=== PATIENT | female | born 1945 | race Caucasian/White ===

== ENCOUNTER → 2017-05-11 | Outpatient (CLI) | payer MEDICARE ==
--- NOTE | 2017-05-12 11:57 | BD ---
EXAMINATION TYPE: MG DEXA axial skeleton. DATE OF EXAM: 05/11/2017 COMPARISON: NONE CLINICAL HISTORY: Height: 5 FT 2 IN Weight: 199 FRAX RISK QUESTIONS: Alcohol (3 or more units per day): NO Family History (Parent hip fracture): NO Glucocorticoids (More than 3mos): NO (Ex: prednisone, prednisolone, methylprednisolone, dexamethasone, and hydrocortisone). History of Fracture in Adulthood: YES Secondary Osteoporosis: 1. Type 1 Diabetes: NO 2. Hyperthyroidism: NO 3. Menopause before 45: NO 4. Malnutrition: NO 5. Chronic liver disease: NO Rheumatoid Arthritis: NO Current Tobacco Use: NO RISK FACTORS HISTORY OF: Active: YES Postmenopausal woman: AGE 55 MEDICATIONS: Thyroid Medications: YES Which medication: LEVOXYL How Lon YEARS Additional Medications: THYROID MEDS, PLAVIX,BLOOD PRESSURE MEDS, Additional History: EXAM MEASUREMENTS: Bone mineral densitometry was performed using the [employer] System. Bone mineral density as measured about the Lumbar spine is: ----- L1-L4(G/cm2): 1.357 T Score Values are as follows: ----- L2: 1.3 ----- L3: 1.4 ----- L4: 2.2 ----- L1-L4: 1.5 Bone mineral density has: Increased 8.8% since study of: 2013 Bone mineral density about the R hip (g/cm2): 0.914 Bone mineral density about the L hip (g/cm2): 0.853 T Score values are as follows: -----R Neck: -0.9 -----L Neck: -1.3 -----R Total: -0.4 -----L Total: -0.5 Bone mineral density has: Decreased -1.4% since study of: 2013 IMPRESSION: Normal (Values between +1 and -1 indicate normal bone mass). Consider repeating this study in 5 year s or sooner if there is some new clinical indication. Bone density has diminished 1.4% within the bilateral hips improved 8.8% within the lumbar spine comp ared to 07/19/2014 NOTE: T-SCORE=SD OF THE YOUNG ADULT MEAN.
--- NOTE | 2017-05-13 10:09 | MM ---
Reason for exam: screening (asymptomatic). Last mammogram was performed 1 year and 3 months ago. History: Patient is postmenopausal and is nulliparous. Family history of breast cancer in mother at age 75. Benign excisional biopsy of the left breast. Physical Findings: A clinical breast exam by your physician is recommended on an annual basis and results should be correlated with mammographic findings. MG 3D Screening Mammo W/Cad Bilateral CC and MLO view(s) were taken. Prior study comparison: February 11, 2016, bilateral MG screening mammo w CAD. November 11, 2014, bilateral MG screening mammo w CAD. January 01, 2013, mammogram, performed at [facility]. The breast tissue is heterogeneously dense. This may lower the sensitivity of mammography. There is chronic nodularity bilaterally. No significant changes when compared with prior studies. ASSESSMENT: Negative, BI-RAD 1 RECOMMENDATION: Routine screening mammogram of both breasts in 1 year.
== END | disposition home or self-care (01) ==
LOC: RADBDWWP 15:08
PROVIDERS: ATTEND Internal Medicine
DX: Z12.31 Encounter for screening mammogram for malignant neoplasm of breast (principal); M81.0 Age-related osteoporosis without current pathological fracture; M81.8 Other osteoporosis without current pathological fracture
CPT/HCPCS: 77080; 77063; G0202

== ENCOUNTER → 2018-05-31 | Outpatient (CLI) | payer MEDICARE ==
--- NOTE | 2018-06-02 10:01 | MM ---
Reason for exam: screening (asymptomatic). Last mammogram was performed 1 year and 1 month ago. History: Patient is postmenopausal and is nulliparous. Family history of breast cancer in mother at age 75. Benign excisional biopsy of the left breast. Physical Findings: A clinical breast exam by your physician is recommended on an annual basis and results should be correlated with mammographic findings. MG 3D Screening Mammo W/Cad Bilateral CC and MLO view(s) were taken. Prior study comparison: May 11, 2017, bilateral MG 3d screening mammo w/cad. February 11, 2016, bilateral MG screening mammo w CAD. The breast tissue is heterogeneously dense. This may lower the sensitivity of mammography. There is chronic nodularity bilaterally. No significant changes when compared with prior studies. ASSESSMENT: Benign, BI-RAD 2 RECOMMENDATION: Routine screening mammogram of both breasts in 1 year.
== END | disposition home or self-care (01) ==
LOC: RADMAMWWP 12:43
PROVIDERS: ATTEND Internal Medicine
DX: Z12.31 Encounter for screening mammogram for malignant neoplasm of breast (principal)
CPT/HCPCS: 77063; 77067

== ENCOUNTER → 2018-10-02 | Outpatient (CLI) | payer MEDICARE ==
[2018-10-02 10:36] LABS: Basophils # (A) 0.1 k/uL (0-0.2); Basophils % (A) 1 %; Eosinophils # (A) 0.4 k/uL (0-0.7); Eosinophils % (A) 4 %; HCT 44.7 % (34.0-46.0); HGB 14.1 gm/dL (11.4-16.0); Lymphocytes # (A) 1.8 k/uL (1.0-4.8); Lymphocytes % (A) 20 %; MCH 28.4 pg (25.0-35.0); MCHC 31.6 g/dL (31.0-37.0); MCV 89.8 fL (80.0-100.0); Mean Platelet Volume 7.4; Monocytes # (A) 0.5 k/uL (0-1.0); Monocytes % (A) 6 %; Neutrophils # (A) 5.9 k/uL (1.3-7.7); Neutrophils % (A) 67 %; Platelet Count 349 k/uL (150-450); RBC 4.98 m/uL (3.80-5.40); RDW 13.1 % (11.5-15.5); WBC 8.8 k/uL (3.8-10.6)
[2018-10-02 10:37] LABS: Appearance,Urine Clear (Clear); Bilirubin,Urine Negative (Negative); Blood,Urine Negative (Negative); Color,Urine Yellow; Glucose,Urine (UA) Negative (Negative); Ketones,Urine Negative (Negative); Leukocyte Esterase,Urine Negative (Negative); Nitrite,Urine Negative (Negative); Protein,Urine Negative (Negative); Specific Gravity,Urine 1.013 (1.001-1.035); Urobilinogen,Urine <2.0 mg/dL (<2.0)
[2018-10-02 16:20] LABS: Anion Gap 7.2 mmol/L (4.00-12.00); Calcium 8.9 mg/dL (8.7-10.3); Carbon Dioxide 26.8 mmol/L (21.6-31.8); Potassium 5.2 mmol/L (3.5-5.5)
[2018-10-06 21:00] LABS: Cryptosporidium parvum Not detected (Not detected); Isospora belli Not detected (Not detected); Microsporidium Not detected (Not detected); Routine Ova and Parasites Not detected; White Cells Not detected (Not detected)
== END | disposition home or self-care (01) ==
LOC: LABWHC1 09:17
PROVIDERS: ATTEND Internal Medicine
DX: E11.65 Type 2 diabetes mellitus with hyperglycemia (principal); E55.9 Vitamin D deficiency, unspecified; E78.5 Hyperlipidemia, unspecified; I69.910 Attention and concentration deficit following unspecified cerebrovascular disease
CPT/HCPCS: 36415; 80051; 80061; 81003; 82306; 82310; 82565; 82947; 83036; 84450; 84460; 84520; 85025; 87045; 87046; 87177; 87207; 87209

== ENCOUNTER → 2018-10-20 | Outpatient (CLI) | payer MEDICARE ==
[~2018-10-20] MED LIST: REGADENOSON 0.4 MG/5 ML SYRINGE IV ONE
--- NOTE | 2018-10-20 12:20 | NM ---
EXAMINATION TYPE: NM stress lexiscan cardiolite DATE OF EXAM: 10/20/2018 COMPARISON: NONE HISTORY: Chest pain TECHNIQUE: After the intravenous administration of 9.8 mCi Tc 99m Sestamibi - Cardiolite resting SPE CT images acquired 45 minutes post injection. The patient received 0.4mg Lexiscan, 24.5 mCi Tc 99m Sestamibi - Stress images obtained [address] injection FINDINGS: Review of stress and rest SPECT images demonstrates no distinct perfusion abnormality. Gated analysi s shows normal wall motion with an estimated left ventricular ejection fraction of 85 %. IMPRESSION: No scintigraphic evidence for reversible ischemia.
--- NOTE | 2018-10-20 12:45 | EST ---
EXERCISE STRESS AGE: 73 SEX: F HT: 5'2" WT: 195 PROTOCOL: Lexiscan Cardiolite Stress Scan HEART RATE REST: 65 BLOOD PRESSURE REST: 151/51 MAXIMUM HEART RATE ACHIEVED: 72 MAXIMUM BLOOD PRESSURE: 156/49 85% MPHR: 126 100% MPHR: 148 INDICATIONS: Chest pain, coronary artery disease. CLINICAL INFORMATION: Baseline rhythm is sinus mechanism, rate 65, right bundle branch block. Baseline blood pressure 151/51 mmHg. Patient received injection of Lexiscan. Electrocardiographic monitoring revealed no evidence of diagnostic ischemic ST deviation. Cardiolite was injected per protocol. CONCLUSION: 1. Nondiagnostic electrocardiograph stress testing. 2. Nuclear images will be reported separately. MMODL / IJN: [id number] /
== END | disposition home or self-care (01) ==
LOC: RADNMMAIN 08:30
PROVIDERS: ATTEND Internal Medicine
DX: I25.10 Atherosclerotic heart disease of native coronary artery without angina pectoris (principal)
CPT/HCPCS: 93017; 78452; A9500; J2785

== ENCOUNTER → 2019-06-18 | Outpatient (CLI) | payer MEDICARE ==
--- NOTE | 2019-06-19 08:23 | MM ---
Reason for exam: screening (asymptomatic). Last mammogram was performed 1 year and 1 month ago. History: Patient is postmenopausal and is nulliparous. Family history of breast cancer in maternal aunt and breast cancer in mother at age 75. Benign excisional biopsy of the left breast. Physical Findings: A clinical breast exam by your physician is recommended on an annual basis and results should be correlated with mammographic findings. MG 3D Screening Mammo W/Cad Bilateral CC, MLO, and XCCL view(s) were taken. Prior study comparison: May 31, 2018, bilateral MG 3d screening mammo w/cad. May 11, 2017, bilateral MG 3d screening mammo w/cad. The breast tissue is heterogeneously dense. This may lower the sensitivity of mammography. Benign appearing bilateral calcifications. No suspicious abnormality. Post excisional biopsy change on the left. No significant changes when compared with prior studies. ASSESSMENT: Benign, BI-RAD 2 RECOMMENDATION: Routine screening mammogram of both breasts in 1 year.
== END | disposition home or self-care (01) ==
LOC: RADMAMWWP 11:15
PROVIDERS: ATTEND Internal Medicine
DX: Z12.31 Encounter for screening mammogram for malignant neoplasm of breast (principal)
CPT/HCPCS: 77063; 77067

== ENCOUNTER → 2019-10-19 | Outpatient (CLI) | payer MEDICARE ==
[2019-10-19 11:49] LABS: Basophils % (A) 1 %; Eosinophils # (A) 0.3 k/uL (0-0.7); Eosinophils % (A) 5 %; HCT 42.2 % (34.0-46.0); HGB 14.2 gm/dL (11.4-16.0); Lymphocytes # (A) 1.4 k/uL (1.0-4.8); Lymphocytes % (A) 24 %; MCH 30.5 pg (25.0-35.0); MCHC 33.6 g/dL (31.0-37.0); MCV 90.6 fL (80.0-100.0); Mean Platelet Volume 8.1; Monocytes # (A) 0.3 k/uL (0-1.0); Monocytes % (A) 6 %; Neutrophils # (A) 3.5 k/uL (1.3-7.7); Neutrophils % (A) 62 %; Platelet Count 142 k/uL (150-450); RBC 4.65 m/uL (3.80-5.40); RDW 12.6 % (11.5-15.5); WBC 5.7 k/uL (3.8-10.6)
[2019-10-19 17:11] LABS: ALT 19 U/L (8-44); AST 19 U/L (13-35); African American GFR (CKD) 104.8 (60.0-200.0); Alkaline Phosphatase 87 U/L (41-126); Bilirubin, Conjugated <0.20 mg/dL (0.20-0.40); Carbon Dioxide 25.5 mmol/L (21.6-31.8); Chloride 106 mmol/L (96-109); Chol/HDL Ratio 4.67; Cholesterol 271 mg/dL (0-200); Glucose 159 mg/dL (70-110); LDL Cholesterol,Calculated 181.4 mg/dL (0.0-131.0); Non-African American GFR(CKD) 90.4 (60.0-200.0); Potassium 4.2 mmol/L (3.5-5.5); Sodium 140 mmol/L (135-145); Total Bilirubin 0.5 mg/dL (0.2-1.2); Total Protein 6.2 g/dL (6.2-8.2)
== END | disposition home or self-care (01) ==
LOC: LABWHC1 10:01
PROVIDERS: ATTEND Internal Medicine
DX: E03.8 Other specified hypothyroidism (principal); E11.65 Type 2 diabetes mellitus with hyperglycemia; E55.9 Vitamin D deficiency, unspecified
CPT/HCPCS: 36415; 80051; 80061; 80076; 82306; 82565; 82947; 83036; 84443; 84520; 85025

== ENCOUNTER → 2020-04-15 | Outpatient (CLI) | payer MEDICARE ==
--- NOTE | 2020-04-16 06:25 | US ---
EXAMINATION TYPE: US carotid duplex BILAT DATE OF EXAM: 04/15/2020 COMPARISON: NONE CLINICAL HISTORY: H35.63 Retinal hemorrhage, bilateral. EXAM MEASUREMENTS: RIGHT: Peak Systolic Velocity (PSV) cm/sec ----- Right CCA: 61.1 ----- Right ICA: 91.9 ----- Right ECA: 164.2 ICA/CCA ratio: 1.5 RIGHT: End Diastole cm/sec ----- Right CCA: 13.8 ----- Right ICA: 27.0 ----- Right ECA: 19.2 LEFT: Peak Systolic Velocity (PSV) cm/sec ----- Left CCA: 59.2 ----- Left ICA: 86.8 ----- Left ECA: 78.8 ICA/CCA ratio: 1.5 LEFT: End Diastole cm/sec ----- Left CCA: 15.6 ----- Left ICA: 24.7 ----- Left ECA: 10.2 VERTEBRALS (direction of flow): Right Vertebral: Antegrade Left Vertebral: Antegrade Rhythm: Normal Wilkerson scale images show moderate to severe peripheral plaque right greater than left carotid bulbs but velocity measurements and ratios remain within normal limits bilaterally. IMPRESSION: Moderate atherosclerotic changes without hemodynamically significant stenosis in either internal carotid artery. Criteria for Assigning % of Stenosis / Diameter reduction (Estimation based on the indirect measurements of the internal carotid artery velocities (ICA PSV). 1. Normal (no stenosis)=ICA PSV < 125 cm/s: ratio < 2.0: ICA EDV<40 cm/s. 2. Less than 50% stenosis=ICA PSV < 125 cm/s: ratio < 2.0: ICA EDV<40 cm/s. 3. 50 to 69% stenosis=ICA PSV of 125 to 230 cm/s: ration 2.0 ? 4.0: ICA EDV 40-100 cm/s. 4. Greater than 70% stenosis to near occlusion= ICA PSV > 230 cm/s: ratio > 4.0: ICA EDV > 100 cm/s. 5. Near occlusion= ICA PSV velocities may be low or undetectable: variable ratio and ICA EDV. 6. Total occlusion=unable to detect flow.
== END | disposition home or self-care (01) ==
LOC: RADUSWWP 16:32
PROVIDERS: ATTEND Ophthalmology
DX: I65.23 Occlusion and stenosis of bilateral carotid arteries (principal); H35.63 Retinal hemorrhage, bilateral
CPT/HCPCS: 93880

== ENCOUNTER → 2020-05-13 | Outpatient (CLI) | payer MEDICARE ==
[2020-05-13 11:14] LABS: Appearance,Urine Clear (Clear); Bilirubin,Urine Negative (Negative); Blood,Urine Negative (Negative); Color,Urine Light Yellow; Glucose,Urine (UA) Negative (Negative); Ketones,Urine Negative (Negative); Leukocyte Esterase,Urine Negative (Negative); Nitrite,Urine Negative (Negative); PH, Urine 5.5 (5.0-8.0); Protein,Urine Negative (Negative); Specific Gravity,Urine 1.006 (1.001-1.035); Urobilinogen,Urine <2.0 mg/dL (<2.0)
[2020-05-13 11:15] LABS: Basophils # (A) 0.1 k/uL (0-0.2); Basophils % (A) 1 %; Eosinophils # (A) 0.3 k/uL (0-0.7); Eosinophils % (A) 4 %; HCT 43.3 % (34.0-46.0); HGB 14.4 gm/dL (11.4-16.0); Lymphocytes # (A) 1.6 k/uL (1.0-4.8); Lymphocytes % (A) 24 %; MCH 31.2 pg (25.0-35.0); MCHC 33.3 g/dL (31.0-37.0); MCV 93.8 fL (80.0-100.0); Monocytes # (A) 0.4 k/uL (0-1.0); Monocytes % (A) 6 %; Neutrophils # (A) 4.2 k/uL (1.3-7.7); Neutrophils % (A) 63 %; Platelet Count 164 k/uL (150-450); RBC 4.62 m/uL (3.80-5.40); RDW 14.1 % (11.5-15.5); WBC 6.7 k/uL (3.8-10.6)
[2020-05-13 18:30] LABS: African American GFR (CKD) 104.8 (60.0-200.0); Albumin 4.4 g/dL (3.80-4.90); Albumin/Globulin Ratio 1.83 (1.60-3.17); Anion Gap 9.8 mmol/L (4.00-12.00); BUN/Creat Ratio 31.67 Ratio (12.00-20.00); Carbon Dioxide 25.2 mmol/L (21.6-31.8); Globulin 2.4 g/dL (1.6-3.3); Non-African American GFR(CKD) 90.4 (60.0-200.0); Potassium 4.5 mmol/L (3.5-5.5); Total Bilirubin 0.8 mg/dL (0.3-1.2); Total Protein 6.8 g/dL (6.2-8.2)
[2020-05-13 18:56] LABS: Hemoglobin A1C 7.4 % (4.0-6.0)
[2020-05-13 20:00] LABS: Microalbumin Creatinine Ratio <30 mg/g Creat (0-30); Urine Creatinine 24.6 mg/dL
== END | disposition home or self-care (01) ==
LOC: LABWHC1 09:35
PROVIDERS: ATTEND Internal Medicine
DX: E11.65 Type 2 diabetes mellitus with hyperglycemia (principal); R79.9 Abnormal finding of blood chemistry, unspecified; N30.10 Interstitial cystitis (chronic) without hematuria
CPT/HCPCS: 36415; 80053; 81003; 82043; 82570; 83036; 85025; 87086

== ENCOUNTER → 2020-07-04 | Outpatient (CLI) | payer MEDICARE ==
--- NOTE | 2020-07-08 08:08 | MM ---
Reason for exam: screening (asymptomatic). Last mammogram was performed 1 year and 1 month ago. History: Patient is postmenopausal and is nulliparous. Family history of breast cancer in maternal aunt and breast cancer in mother at age 75. Benign excisional biopsy of the left breast. Physical Findings: A clinical breast exam by your physician is recommended on an annual basis and results should be correlated with mammographic findings. MG 3D Screening Mammo W/Cad Bilateral CC and MLO view(s) were taken. Prior study comparison: June 18, 2019, bilateral MG 3d screening mammo w/cad. May 31, 2018, bilateral MG 3d screening mammo w/cad. The breast tissue is heterogeneously dense. This may lower the sensitivity of mammography. Central posterior asymmetric density left CC view appears more defined but appears to disperse on 3D images. No MLO correlate. ASSESSMENT: Probably benign, BI-RAD 3 RECOMMENDATION: Follow-up diagnostic mammogram of the left breast in 6 months.
== END | disposition home or self-care (01) ==
LOC: RADMAMWWP 11:10
PROVIDERS: ATTEND Internal Medicine
DX: Z12.31 Encounter for screening mammogram for malignant neoplasm of breast (principal)
CPT/HCPCS: 77063; 77067

== ENCOUNTER → 2020-08-25 | Outpatient (CLI) | payer MEDICARE ==
--- NOTE | 2020-08-25 11:40 | US ---
EXAMINATION TYPE: US pelvic complete DATE OF EXAM: 08/25/2020 COMPARISON: None CLINICAL HISTORY: 75-year-old female Endometrial Thickening. Spotting for one month. History of fibro ids TECHNIQUE: Transabdominal sonographic images of the pelvis were acquired. Transvaginal sonographic images were medically necessary to better assess the following anatomy: Endometrium Date of LMP: post menopausal FINDINGS: EXAM MEASUREMENTS: Uterus: 8.2 x 4.6 x 4.9 cm Endometrial Stripe: 1.8 cm Right Ovary: 2.9 x 1.4 x 2.5 cm Left Ovary: not visualized 1. Uterus: Exophytic fibroid Rt uterus 3.0 x 2.6 x 2.9 cm indicated by the print binding and finishing worker but not well s een on the provided images. 2. Endometrium: Contains some fluid within the uterine cavity and. There is lobulated abnormal thick ening of the stripe. 3. Right Ovary: wnl 4. Left Ovary: Obscured by overlying bowel gas Spectral, color and waveform doppler imaging shows good arterial and venous flow within the right o vary; there is no evidence for ovarian torsion. 5. Bilateral Adnexa: wnl 6. Posterior cul-de-sac: Small amt of free fluid IMPRESSION: Abnormal endometrial thickening for a postmenopausal female up to 1.8 cm. Given the lobulated appeara nce, endometrial polyp and carcinoma are in the differential. Further appropriate workup and manageme nt recommended.
[2020-08-25 12:26] LABS: Appearance,Urine Cloudy (Clear); Bacteria,Urine Rare /hpf; Bilirubin,Urine Negative (Negative); Blood,Urine Moderate (Negative); Calcium Oxalate Crystals,Urine Many /hpf; Color,Urine Yellow; Glucose,Urine (UA) Negative (Negative); Ketones,Urine Negative (Negative); Leukocyte Esterase,Urine Large (Negative); Mucus,Urine Few /hpf; Nitrite,Urine Negative (Negative); PH, Urine 5.5 (5.0-8.0); Protein,Urine Trace (Negative); RBC,Urine 9 /hpf (0-5); Specific Gravity,Urine 1.032 (1.001-1.035); Squamous Epithelial Cell,Urine 4 /hpf (0-4); Urobilinogen,Urine <2.0 mg/dL (<2.0); WBC,Urine 14 /hpf (0-5)
== END | disposition home or self-care (01) ==
LOC: RADUSWWP 09:06
PROVIDERS: ATTEND Internal Medicine
DX: R93.89 Abnormal findings on diagnostic imaging of other specified body structures (principal); Z78.0 Asymptomatic menopausal state; N30.10 Interstitial cystitis (chronic) without hematuria
CPT/HCPCS: 76830; 76856; 81001; 87086

== ENCOUNTER → 2020-10-07 | Outpatient (CLI) | payer MEDICARE ==
[2020-10-07 14:19] LABS: Basophils # (A) 0.1 k/uL (0-0.2); Basophils % (A) 1 %; Eosinophils # (A) 0.4 k/uL (0-0.7); Eosinophils % (A) 5 %; HGB 13.3 gm/dL (11.4-16.0); Lymphocytes # (A) 1.7 k/uL (1.0-4.8); Lymphocytes % (A) 24 %; MCH 28.7 pg (25.0-35.0); MCHC 31.6 g/dL (31.0-37.0); MCV 90.6 fL (80.0-100.0); Mean Platelet Volume 7.9; Monocytes # (A) 0.4 k/uL (0-1.0); Monocytes % (A) 6 %; Neutrophils # (A) 4.5 k/uL (1.3-7.7); Neutrophils % (A) 63 %; Platelet Count 141 k/uL (150-450); RBC 4.63 m/uL (3.80-5.40); RDW 13.6 % (11.5-15.5); WBC 7.2 k/uL (3.8-10.6)
[2020-10-07 14:48] LABS: Appearance,Urine Cloudy (Clear); Bacteria,Urine Few /hpf; Bilirubin,Urine Negative (Negative); Blood,Urine Large (Negative); Color,Urine Yellow; Glucose,Urine (UA) Negative (Negative); Hyaline Casts,Urine 1 /lpf (0-2); Ketones,Urine Negative (Negative); Leukocyte Esterase,Urine Large (Negative); Mucus,Urine Rare /hpf; Nitrite,Urine Negative (Negative); Protein,Urine Trace (Negative); RBC,Urine 2 /hpf (0-5); Specific Gravity,Urine 1.025 (1.001-1.035); Squamous Epithelial Cell,Urine 5 /hpf (0-4); Urobilinogen,Urine <2.0 mg/dL (<2.0); WBC,Urine 18 /hpf (0-5)
[2020-10-07 18:51] LABS: African American GFR (CKD) 104.1 (60.0-200.0); Albumin 4.3 g/dL (3.80-4.90); Albumin/Globulin Ratio 1.95 (1.60-3.17); BUN/Creat Ratio 53.33 Ratio (12.00-20.00); Calcium 9.4 mg/dL (8.7-10.3); Globulin 2.2 g/dL (1.6-3.3); Non-African American GFR(CKD) 89.8 (60.0-200.0); Potassium 4.8 mmol/L (3.5-5.5); Total Bilirubin 0.5 mg/dL (0.2-1.2); Total Protein 6.5 g/dL (6.2-8.2)
[2020-10-07 21:20] LABS: Hemoglobin A1C 6.8 % (4.0-6.0)
[2020-10-08 05:20] LABS: INR 1.01 (0.90-1.11); Partial Thromboplastin Time 29.1 sec (23.5-31.0); Prothrombin Time 10.9 sec (9.9-11.9)
== END | disposition home or self-care (01) ==
LOC: LABWHC1 12:46
PROVIDERS: ATTEND Internal Medicine
DX: Z01.818 Encounter for other preprocedural examination (principal); E11.65 Type 2 diabetes mellitus with hyperglycemia; D60.9 Acquired pure red cell aplasia, unspecified
CPT/HCPCS: 36415; 80053; 81001; 83036; 85025; 85610; 85730; 86850; 86900; 86901; 87070; 87086

== ENCOUNTER 2020-11-25 13:25 | Observation (INO) | payer MEDICARE ==
[2020-11-25] MEDS ORDERED: ASPIRIN 81 MG PO STA (14:00)
[2020-11-25] MEDS ORDERED: NITROGLYCERIN SL TABS 0.4 MG TAB SUBLINGUAL STA (14:00)
--- NOTE | 2020-11-25 14:01 | ED ---
Chest Pain HPI - General Chief Complaint: Chest Pain Stated Complaint: Chest pain Time Seen by Provider: 11/25/20 14:00 Source: patient Mode of arrival: wheelchair Limitations: no limitations - History of Present Illness Initial Comments: 75-year-old female with history of CAD, hyperlipidemia, diabetes presenting to emergency Department with chief complaint of chest pain. Patient states this occurred about one hour prior to arrival. Patient states the pain was midsternal and felt achy with some radiation to the right side of neck and gradually went to her shoulder and back but has since resolved. Patient denies any associated shortness of breath with it. Patient states when the symptoms occurred, it was quite painful. She denies lightheadedness, dizziness, diaphoretic episodes, one sided weakness and paresthesias, blurry vision or headache. Denies any nausea vomiting diarrhea. She denies any symptoms at the moment. - Related Data Home Medications Medication Instructions Recorded Confirmed Cholecalciferol [Vitamin D3 (25 1,000 unit PO DAILY 11/25/20 11/25/20 Mcg = 1000 Iu)] Clopidogrel [Plavix] 75 mg PO DAILY 11/25/20 11/25/20 L.acidoph,Paracasei, B.lactis 1 cap PO DAILY 11/25/20 11/25/20 [Probiotic] Levothyroxine Sodium [Synthroid] 150 mcg PO DAILY 11/25/20 11/25/20 Losartan Potassium [Cozaar] 50 mg PO DAILY 11/25/20 11/25/20 Meloxicam [Mobic] 15 mg PO DAILY PRN 11/25/20 11/25/20 Rosuvastatin Calcium [Crestor] 10 mg PO DAILY 11/25/20 11/25/20 metFORMIN HCL [Glucophage] 500 mg PO BID 11/25/20 11/25/20 traMADol HCL 50 mg PO Q6H PRN 11/25/20 11/25/20 Allergies Allergy/AdvReac Type Severity Reaction Status Date / Time codeine Allergy Nausea Verified 11/25/20 15:23 hydrocodone [From [place]] Allergy Rash/Hives Verified 11/25/20 15:23 Review of Systems ROS Statement: Those systems with pertinent positive or pertinent negative responses have been documented in the HPI. ROS Other: All systems not noted in ROS Statement are negative. EKG Findings - EKG Comments: EKG Findings:: Right bundle-branch block. Ventricular rate 78, MD 206, QRS 136, QTC 476. Past Medical History Past Medical History: CVA/TIA, Diabetes Mellitus, Hyperlipidemia, Hypertension, Thyroid Disorder Additional Past Medical History / Comment(s): moderate stenosis of aortic valve. History of Any Multi-Drug Resistant Organisms: None Reported Past Surgical History: Joint Replacement, Orthopedic Surgery Additional Past Surgical History / Comment(s): bilateral shoulder replacements, bilateral knees, caratedectomy. Past Psychological History: No Psychological Hx Reported Smoking Status: Former smoker Past Alcohol Use History: Occasional Past Drug Use History: None Reported General Exam Limitations: no limitations General appearance: alert, in no apparent distress Head exam: Present: atraumatic, normocephalic, normal inspection Eye exam: Present: normal appearance, PERRL, EOMI Pupils: Present: normal accommodation ENT exam: Present: normal exam, normal oropharynx, mucous membranes moist, TM's normal bilaterally, normal external ear exam Neck exam: Present: normal inspection, full ROM. Absent: tenderness Respiratory exam: Present: normal lung sounds bilaterally. Absent: respiratory distress, wheezes, rales, rhonchi, stridor Cardiovascular Exam: Present: regular rate, normal rhythm, systolic murmur GI/Abdominal exam: Present: soft. Absent: distended, tenderness, guarding, rebound Extremities exam: Present: normal inspection, full ROM, normal capillary refill. Absent: tenderness, pedal edema, joint swelling Back exam: Present: normal inspection, full ROM Neurological exam: Present: alert, oriented X3 Psychiatric exam: Present: normal affect, normal mood Skin exam: Present: warm, dry, intact, normal color Course Vital Signs 11/25/20 11/25/20 11/25/20 13:28 13:47 14:40 Temperature 97.8 F Pulse Rate 71 77 Respiratory 18 18 16 Rate Blood Pressure 132/68 153/99 O2 Sat by Pulse 98 98 Oximetry 11/25/20 16:10 Temperature Pulse Rate 91 Respiratory 16 Rate Blood Pressure 157/89 O2 Sat by Pulse 99 Oximetry Chest Pain MDM - MDM 75-year-old female with history of CAD, diabetes, hyperlipidemia presenting to the emergency department with chief complaint of chest pain. On physical examination, patient has a systolic heart murmur which she says it is secondary to aortic stenosis. Patient received a quality control systems manager. Chest x-ray is unremarkable. Initial cardiac workups unremarkable. Patient was given aspirin. Patient currently on Plavix. Patient denies any symptoms in the emergency department. Patient has a heart score of 5. Patient will be admitted for cardiac observation and serial troponins. I discussed with Dr. Chappell. Admitting physician is [facility] on consult Disposition Clinical Impression: Chest pain Disposition: ADMITTED IP TO THIS HOSP Condition: Good Is patient prescribed a controlled substance at d/c from ED?: No Time of Disposition: 15:56
[2020-11-25 14:41] VITALS: RESP 16
[2020-11-25 14:58] LABS: Basophils # (A) 0.1 k/uL (0-0.2); Basophils % (A) 1 %; Eosinophils # (A) 0.6 k/uL (0-0.7); Eosinophils % (A) 6 %; HCT 41.1 % (34.0-46.0); HGB 13.9 gm/dL (11.4-16.0); Lymphocytes # (A) 1.5 k/uL (1.0-4.8); Lymphocytes % (A) 17 %; MCH 29.5 pg (25.0-35.0); MCHC 33.8 g/dL (31.0-37.0); MCV 87.4 fL (80.0-100.0); Mean Platelet Volume 7.4; Monocytes # (A) 0.5 k/uL (0-1.0); Monocytes % (A) 6 %; Neutrophils # (A) 6.1 k/uL (1.3-7.7); Neutrophils % (A) 69 %; Platelet Count 144 k/uL (150-450); RBC 4.71 m/uL (3.80-5.40); RDW 13.3 % (11.5-15.5); WBC 8.8 k/uL (3.8-10.6)
[2020-11-25 15:07] LABS: ALT 18 U/L (4-34); AST 23 U/L (14-36); African American GFR (CKD) >90 (>60 ml/min/1.73 sqM); Albumin 4.3 g/dL (3.5-5.0); Alkaline Phosphatase 106 U/L (38-126); Anion Gap 9 mmol/L; Blood Urea Nitrogen 22 mg/dL (7-17); Calcium 9.6 mg/dL (8.4-10.2); Carbon Dioxide 24 mmol/L (22-30); Chloride 105 mmol/L (98-107); Glucose 149 mg/dL (74-99); Magnesium 1.7 mg/dL (1.6-2.3); Non-African American GFR(CKD) >90 (>60 ml/min/1.73 sqM); Potassium 4.5 mmol/L (3.5-5.1); Sodium 138 mmol/L (137-145); Total Bilirubin 0.6 mg/dL (0.2-1.3); Total Protein 7.4 g/dL (6.3-8.2)
[2020-11-25] MEDS ORDERED: SODIUM CHLORIDE 0.9% 500 ML 500 ML IV STA (15:14)
--- NOTE | 2020-11-25 15:22 | XR ---
EXAMINATION TYPE: XR chest 2V DATE OF EXAM: 11/25/2020 COMPARISON: Prior chest x-ray 07/18/2014 HISTORY: Chest pain TECHNIQUE: Frontal and lateral views of the chest are obtained. FINDINGS: There is no focal air space opacity, pleural effusion, or pneumothorax seen. The cardiac silhouette size is within normal limits. The osseous structures are intact, bilateral shoulder arth roplasties have been performed with possible heterotopic new bone about the right shoulder, arthropat hy present at the acromioclavicular joints. There is thoracic spondylosis, compression deformity ques tioned at the lower thoracic spine appear stable. There are overlying cardiac leads. IMPRESSION: No acute cardiopulmonary process.
[2020-11-25 15:26] LABS: INR 0.9 (<1.2); Partial Thromboplastin Time 23.7 sec (22.0-30.0); Prothrombin Time 10.2 sec (9.0-12.0)
[2020-11-25] MEDS ORDERED: NALOXONE 0.4 MG/ML 1 ML VIAL IV PRN (15:54)
[2020-11-25] MEDS ORDERED: ACETAMINOPHEN TAB 325 MG TAB PO PRN (15:54)
[2020-11-25] MEDS ORDERED: LORazepam 2 MG/ML INJ IV PRN (15:54)
[2020-11-25] MEDS ORDERED: ONDANSETRON 4 MG/2 ML VIAL IVP PRN (15:54)
[2020-11-25] MEDS ORDERED: traMADol 50 MG TAB PO PRN (18:40)
[2020-11-25] MEDS ORDERED: INSULIN ASPART (NovoLOG) 100 UNIT/ML VIAL SQ SCH (21:00)
[2020-11-25 21:33] VITALS: BP 157/89; PULSE 87; TEMP 97.4
[2020-11-26] MEDS ORDERED: LEVOTHYROXINE 75 MCG TAB PO SCH (06:30)
[2020-11-26] MEDS ORDERED: CLOPIDOGREL 75 MG TAB PO SCH (09:00)
[2020-11-26] MEDS ORDERED: CHOLECALCIFEROL 1,000 UNIT TAB PO SCH (09:00)
[2020-11-26] MEDS ORDERED: ASPIRIN 325 MG TAB PO SCH (09:00)
[2020-11-26] MEDS ORDERED: LACTOBACILLUS ACIDOPH & BULGAR 1 EACH PACKET PO SCH (09:00)
[2020-11-26] MEDS ORDERED: ATORVASTATIN 20 MG TAB PO SCH (09:00)
[2020-11-26] MEDS ORDERED: LOSARTAN 50 MG TAB PO SCH (09:00)
--- NOTE | 2020-12-14 20:57 | P.HPIM ---
History of Present Illness H&P Date: 11/25/20 Chief Complaint: Chest Pain Patient is a 75-year-old female with known history of hypertension, diabetes type 2 [id number], hypothyroidism, history of CVA/TIA and moderate aortic valve stenosis and previous history of smoking presents to ER with complaints of chest pain. Patient states that he developed midsternal chest pain started about an hour prior to arrival to the hospital. Chest pain is mainly aching type pain radiating to the right side of the neck and went to her shoulder and back. Pain resolved at this time. Patient was seen by personal care home administrator recently and was diagnosed with moderate aortic valve stenosis and she is supposed to follow-up with his clinic. Patient thinks that it may be angina due to aortic stenosis. Denied any associated nausea vomiting. No associated shortness of breath. Patient was severe 7 out of 10 in severity. Denied any palpitations. No dizziness or lightheadedness. No leg weakness. Otherwise denied any recent i llnesses. No sick contacts. No abdominal pain or diarrhea. No dysuria or hematuria. No fever no chills. No cough or sputum production. Chest x-ray showed no acute cardiopulmonary process EKG showed normal sinus rhythm Laboratory data showed platelet count 144, INR 0.9, BUN 2020 creatinine 0.45 Troponin x2 - and LFTs are not elevated and magnesium 1.7 Review of Systems Constitutional: Patient denies any fever or chills . No generalized weakness or weight loss. Abdomen: Patient denied nausea vomiting and diarrhea and abdominal pain. Cardiovascular: Patient denies any chest pain or short of breath no palpitations. Respiratory: patient denied any cough or sputum production. No shortness of breath Neurologic: Patient denied any numbness or tingling headache. Musculoskeletal: Patient denies any complaints of joint swelling or deformity. Skin: Negative Psychiatric: Negative Endocrine: No heat or cold intolerance. No recent weight gain. Genitourinary: No dysuria or hematuria. All other 14 point ROS negative except the above Past Medical History Past Medical History: CVA/TIA, Diabetes Mellitus, Hyperlipidemia, Hypertension, Thyroid Disorder Additional Past Medical History / Comment(s): moderate stenosis of aortic valve. History of Any Multi-Drug Resistant Organisms: None Reported Past Surgical History: Joint Replacement, Orthopedic Surgery Additional Past Surgical History / Comment(s): bilateral shoulder replacements, bilateral knees, caratedectomy. Past Psychological History: No Psychological Hx Reported Smoking Status: Former smoker Past Alcohol Use History: Occasional Past Drug Use History: None Reported Medications and Allergies Home Medications Medication Instructions Recorded Confirmed Type Cholecalciferol [Vitamin D3 (25 1,000 unit PO DAILY 11/25/20 11/25/20 History Mcg = 1000 Iu)] Clopidogrel [Plavix] 75 mg PO DAILY 11/25/20 11/25/20 History L.acidoph,Paracasei, B.lactis 1 cap PO DAILY 11/25/20 11/25/20 History [Probiotic] Levothyroxine Sodium [Synthroid] 150 mcg PO DAILY 11/25/20 11/25/20 History Losartan Potassium [Cozaar] 50 mg PO DAILY 11/25/20 11/25/20 History Meloxicam [Mobic] 15 mg PO DAILY PRN 11/25/20 11/25/20 History Rosuvastatin Calcium [Crestor] 10 mg PO DAILY 11/25/20 11/25/20 History metFORMIN HCL [Glucophage] 500 mg PO BID 11/25/20 11/25/20 History traMADol HCL 50 mg PO Q6H PRN 11/25/20 11/25/20 History Allergies Allergy/AdvReac Type Severity Reaction Status Date / Time codeine Allergy Nausea Verified 11/25/20 15:23 hydrocodone [From [place]] Allergy Rash/Hives Verified 11/25/20 15:23 Physical Exam Vitals: Vital Signs Temp Pulse Resp BP Pulse Ox 11/25/20 21:32 97.4 F L 87 16 157/89 96 11/25/20 20:00 72 16 138/75 98 11/25/20 17:47 97.0 F L 69 16 143/103 99 11/25/20 16:10 91 16 157/89 99 11/25/20 14:40 77 16 153/99 98 11/25/20 13:47 18 11/25/20 13:28 97.8 F 71 18 132/68 98 Intake and Output 11/25/20 11/25/20 11/26/20 14:59 22:59 06:59 Intake Total 500 Balance 500 Intake: Amount of Fluid Infused ( 500 ml) Other: Weight 90.718 kg vPHYSICAL EXAMINATION: Patient is lying in the bed comfortably, no acute distress, awake alert and oriented.. HEENT: Normocephalic. Neck is supple. Pupils reactive. Nostrils clear. Oral cavity is moist. Ears reveal no drainage. Neck reveals no JVD, carotid bruits, or thyromegaly. CHEST EXAMINATION: Trachea is central. Symmetrical expansion. Lung santos clear to auscultation and percussion. CARDIAC: Normal S1, S2 with no gallops. Ejection systolic murmur. ABDOMEN: Soft. Bowel sounds normal. No organomegaly. No abdominal bruits. Extremities: reveal no edema. No clubbing or cyanosis Neurologically awake, alert, oriented x3 with well-coordinated movements. No focal deficits noted Skin: No rash or skin lesions. Psychiatric: Coperative. Nonsuicidal Musculoskeletal: No joint swelling or deformity. Normal range of motion Results CBC & Chem 7: 11/25/20 14:37 11/25/20 14:37 Labs: Abnormal Lab Results - Last 24 Hours (Table) 11/25/20 11/25/20 Range/Units 14:37 14:37 Plt Count 144 L (150-450) k/uL BUN 22 H (7-17) mg/dL Creatinine 0.45 L (0.52-1.04) mg/dL Glucose 149 H (74-99) mg/dL Thrombosis Risk Factor Assmnt - DVT/VTE Prophylaxis DVT/VTE Prophylaxis: Pharmacologic Prophylaxis ordered Assessment and Plan Assessment: Chest pain possible angina Moderate aortic valve stenosis history as per patient Hypertension Diabetes type 2 [id number] Hypothyroidism History of CVA/TIA currently on Plavix Hyperlipidemia DVT prophylaxis Heparin subcu Plan: Patient will be continued on telemetry monitoring. Serial EKG and troponins will be obtained and cardiology was consulted. Continue with home blood pressure medications, statins and Plavix. Insulin sliding scale for better blood sugar control. Patient was given fluid bolus. Continue to follow closely and further recommendations based on the clinical course. Time with Patient: Greater than 30
--- NOTE | 2020-12-14 21:00 | P.DS ---
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 Patient states that he developed midsternal chest pain started about an hour prior to arrival to the hospital. Chest pain is mainly aching type pain radiating to the right side of the neck and went to her shoulder and back. Pain resolved at this time. Patient was seen by environmental analyst recently and was diagnosed with moderate aortic valve stenosis and she is supposed to follow-up with his clinic. Patient thinks that it may be angina due to aortic stenosis. Denied any associated nausea vomiting. No associated shortness of breath. Patient was severe 7 out of 10 in severity. Denied any palpitations. No dizziness or lightheadedness. No leg weakness. Otherwise denied any recent illnesses. No sick contacts. No abdominal pain or diarrhea. No dysuria or hematuria. No fever no chills. No cough or sputum production. Chest x-ray showed no acute cardiopulmonary process EKG showed normal sinus rhythm Laboratory data showed platelet count 144, INR 0.9, BUN 2020 creatinine 0.45 Troponin x2 - and LFTs are not elevated and magnesium 1.7 Patient was continued on telemetry monitoring. Serial EKG and troponins will be obtained and cardiology was consulted. Continue with home blood pressure medications, statins and Plavix. Insulin sliding scale for better blood sugar control. Patient was given fluid bolus. Continue to follow closely and further recommendations based on the clinical course. Pt. Left AMA Patient Condition at Discharge: Good Plan - Discharge Summary New Discharge Prescriptions: No Action metFORMIN HCL [Glucophage] 500 mg PO BID Rosuvastatin Calcium [Crestor] 10 mg PO DAILY Meloxicam [Mobic] 15 mg PO DAILY PRN PRN Reason: Pain Losartan Potassium [Cozaar] 50 mg PO DAILY Levothyroxine Sodium [Synthroid] 150 mcg PO DAILY Clopidogrel [Plavix] 75 mg PO DAILY traMADol HCL 50 mg PO Q6H PRN PRN Reason: Pain Cholecalciferol [Vitamin D3 (25 Mcg = 1000 Iu)] 1,000 unit PO DAILY L.acidoph,Paracasei, B.lactis [Probiotic] 1 cap PO DAILY Discharge Medication List Cholecalciferol [Vitamin D3 (25 Mcg = 1000 Iu)] 1,000 unit PO DAILY 11/25/20 [History] Clopidogrel [Plavix] 75 mg PO DAILY 11/25/20 [History] L.acidoph,Paracasei, B.lactis [Probiotic] 1 cap PO DAILY 11/25/20 [History] Levothyroxine Sodium [Synthroid] 150 mcg PO DAILY 11/25/20 [History] Losartan Potassium [Cozaar] 50 mg PO DAILY 11/25/20 [History] Meloxicam [Mobic] 15 mg PO DAILY PRN 11/25/20 [History] Rosuvastatin Calcium [Crestor] 10 mg PO DAILY 11/25/20 [History] metFORMIN HCL [Glucophage] 500 mg PO BID 11/25/20 [History] traMADol HCL 50 mg PO Q6H PRN 11/25/20 [History] Follow up Appointment(s)/Referral(s): Nonstaff,Physician [REFERRING] - 1-2 days Patient Instructions/Handouts: Chest Pain (ED) Discharge Disposition: Left Against Medical Advice
== END 2020-11-25 22:07 | disposition left against medical advice (07) ==
LOC: EC 13:25 → 1SOBS 15:54
PROVIDERS: ADMIT Internal Medicine; ATTEND Internal Medicine
DX: R07.89 Other chest pain (principal); E11.9 Type 2 diabetes mellitus without complications; I25.10 Atherosclerotic heart disease of native coronary artery without angina pectoris; I10 Essential (primary) hypertension; E78.5 Hyperlipidemia, unspecified; I35.0 Nonrheumatic aortic (valve) stenosis; E03.9 Hypothyroidism, unspecified; I45.10 Unspecified right bundle-branch block; Z79.02 Long term (current) use of antithrombotics/antiplatelets; Z79.890 Hormone replacement therapy; Z79.1 Long term (current) use of non-steroidal anti-inflammatories (NSAID); Z79.84 Long term (current) use of oral hypoglycemic drugs; Z79.891 Long term (current) use of opiate analgesic; Z79.899 Other long term (current) drug therapy; Z88.5 Allergy status to narcotic agent; Z96.611 Presence of right artificial shoulder joint; Z96.612 Presence of left artificial shoulder joint; Z96.653 Presence of artificial knee joint, bilateral; Z87.891 Personal history of nicotine dependence; Z86.73 Personal history of transient ischemic attack (TIA), and cerebral infarction without residual deficits; Z53.29 Procedure and treatment not carried out because of patient's decision for other reasons
CPT/HCPCS: 96360; 96361; 99285; 36415; 93005; 80053; 83735; 84484; 85025; 85610; 85730; 71046; G0378

== ENCOUNTER → 2021-01-27 | Outpatient (CLI) | payer MEDICARE | END | disposition home or self-care (01) | LOC: CPPFTMAIN 12:19 | PROVIDERS: ATTEND Internal Medicine | DX: J45.990 Exercise induced bronchospasm (principal) | CPT/HCPCS: 94060; 94726; 94729 ==

== ENCOUNTER → 2021-01-30 | Outpatient (CLI) | payer MEDICARE ==
[2021-01-30 13:00] LABS: Appearance,Urine Cloudy (Clear); Bacteria,Urine Occasional /hpf; Bilirubin,Urine Negative (Negative); Blood,Urine Negative (Negative); Color,Urine Yellow; Glucose,Urine (UA) Negative (Negative); Ketones,Urine Negative (Negative); Leukocyte Esterase,Urine Negative (Negative); Mucus,Urine Rare /hpf; Nitrite,Urine Negative (Negative); Protein,Urine Negative (Negative); RBC,Urine 1 /hpf (0-5); Specific Gravity,Urine 1.014 (1.001-1.035); Squamous Epithelial Cell,Urine 6 /hpf (0-4); Urobilinogen,Urine <2.0 mg/dL (<2.0); WBC,Urine 1 /hpf (0-5)
[2021-01-30 19:26] LABS: Basophils # (A) 0.06 X 10*3/uL (0.00-0.10); Eosinophils # (A) 0.24 X 10*3/uL (0.04-0.35); Eosinophils % (A) 3.9 %; HCT 43.7 % (37.2-46.3); Lymphocytes % (A) 21.4 %; MCH 28.7 pg (27.0-32.0); MCV 89.7 fL (80.0-97.0); Mean Platelet Volume 11.6 fL (9.5-12.2); Monocytes # (A) 0.45 X 10*3/uL (0.20-1.00); Monocytes % (A) 7.4 %; Neutrophils % (A) 65.8 %; Platelet Count 154 X 10*3/uL (140-440); RBC 4.87 X 10*6/uL (4.10-5.20); RDW 13.2 % (11.5-14.5); WBC 6.08 X 10*3/uL (4.50-10.00)
[2021-01-30 20:38] LABS: Urine Creatinine 90.2 mg/dL
[2021-01-30 21:55] LABS: Cancer Antigen 125 9.7 U/mL (0.0-30.1)
[2021-01-30 22:17] LABS: Hemoglobin A1C 7.4 % (4.0-6.0)
== END | disposition home or self-care (01) ==
LOC: LABWHC1 11:28
PROVIDERS: ATTEND Internal Medicine
DX: Z01.818 Encounter for other preprocedural examination (principal); E11.65 Type 2 diabetes mellitus with hyperglycemia; E03.8 Other specified hypothyroidism; E78.3 Hyperchylomicronemia; E55.9 Vitamin D deficiency, unspecified
CPT/HCPCS: 36415; 81001; 82043; 82306; 82378; 82570; 82947; 83036; 83880; 84443; 84481; 85025; 86304; 86850; 86900; 86901; 87086

== ENCOUNTER → 2021-06-15 | Outpatient (CLI) | payer MEDICARE ==
--- NOTE | 2021-06-15 09:13 | XR ---
EXAM TYPE: LUMBAR SPINE X RAY SERIES COMPARISON: NONE HISTORY: Chronic back pain TECHNIQUE: 5 views are submitted including flexion and extension lateral views. FINDINGS: There is a slight anterolisthesis of L4 on L5 noted on the neutral image which appears to be stable o n flexion and extension views severe facet arthropathy is seen at this level. There is multilevel severe degenerative disc disease. Vascular calcifications are noted. Suspect mult ilevel foraminal encroachment. There is a slight scoliosis and arthropathy of the SI joints. IMPRESSION: 1. Multilevel severe degenerative disc disease with anterolisthesis L4 on L5 and L5 on S1.
--- NOTE | 2021-06-15 09:14 | XR ---
EXAMINATION TYPE: XR thoracic spine 2V DATE OF EXAM: 06/15/2021 COMPARISON: NONE HISTORY: Pain TECHNIQUE: 3 views submitted FINDINGS: Diffuse osteopenia with multilevel hypertrophic and degenerative disc disease. There are no compressi on deformities. Alignment is anatomic. The pedicles are intact. Normal curvature of the spine. Incide ntal note made of bilateral postsurgical change involving the shoulders. IMPRESSION: 1. Multilevel mild to moderate degenerative disc disease.
--- NOTE | 2021-06-15 10:09 | US ---
EXAMINATION TYPE: US gallbladder DATE OF EXAM: 06/15/2021 COMPARISON: NONE CLINICAL HISTORY: 75-year-old female K80.71 Calculus of gallbladder. EXAM MEASUREMENTS: Liver Length: 16.0 cm Gallbladder Wall: 0.2 cm CBD: 0.4 cm Right Kidney: 11.5 x 4.3 x 5.1 cm Pancreas: Suboptimal visualization of the pancreatic tail due to shadowing from bowel gas. Visualize d head and body shows no gross abnormality. Liver: Slightly increased echogenicity and slightly attenuating. No focal lesion seen. Gallbladder: No stones seen. No abnormal distention or wall thickening. Evidence for sonographic Phoenix's sign: No CBD: wnl Right Kidney: No hydronephrosis. IMPRESSION: Mild hepatic steatosis. No gallstones or biliary duct dilatation.
== END | disposition home or self-care (01) ==
LOC: RADUSWWP 08:15
PROVIDERS: ATTEND Internal Medicine
DX: M51.34 Other intervertebral disc degeneration, thoracic region (principal); M51.36 Other intervertebral disc degeneration, lumbar region; M43.16 Spondylolisthesis, lumbar region; K76.0 Fatty (change of) liver, not elsewhere classified; K80.20 Calculus of gallbladder without cholecystitis without obstruction
CPT/HCPCS: 72070; 72114; 76705

== ENCOUNTER → 2021-07-03 | Outpatient (CLI) | payer MEDICARE ==
--- NOTE | 2021-07-03 11:03 | NM ---
Nuclear medicine hepatobiliary scan. HISTORY: Pain. DOSAGE: The patient received 8 ounces of ensure plus and 4.4 mCi of Technetium 99m Choletec. FINDINGS: There is normal hepatic extraction. The gallbladder is seen by 20 minutes. Ejection fract ion is 82%. IMPRESSION: 1. No diagnostic evidence of cholecystitis. 2. Ejection fraction 82%.
== END | disposition home or self-care (01) ==
LOC: RADNMMAIN 08:21
PROVIDERS: ATTEND Internal Medicine
DX: R10.9 Unspecified abdominal pain (principal)
CPT/HCPCS: 78226; A9537

== ENCOUNTER 2021-07-16 11:34 | Emergency (ER) | payer MEDICARE ==
[2021-07-16 11:42] VITALS: BP 183/76; PULSE 82; RESP 18; TEMP 98.1
[2021-07-16] MEDS ORDERED: MORPHINE SULFATE 4 MG/ML SYRINGE IM STA (12:29)
--- NOTE | 2021-07-16 12:33 | ED ---
General Adult HPI - General Chief complaint: Head Injury Stated complaint: fell Time Seen by Provider: 07/16/21 11:53 Source: patient Mode of arrival: ambulatory Limitations: no limitations - History of Present Illness Initial comments: Dictation was produced using [employer] dictation software. please excuse any grammatical, word or spelling errors. Chief Complaint: 76-year-old female presents with head injury History of Present Illness: 76-year-old female she was at home when she tripped. She lost her balance and fell forward. She struck the left forehead on the corner of a brick wall. Patient denies any loss of consciousness. She has no neck pain. She fell landing on her left side. She states that she has some mild ache to her left upper and left lower extremity. She does have history of degenerative back disease and is worried about her back and her head. Patient denies any diplopia. No loss of consciousness. Patient was ambulatory after the accident. The ROS documented in this emergency department record has been reviewed and confirmed by me. Those systems with pertinent positive or negative responses ochoa ve been documented in the HPI. All other systems are other negative and/or noncontributory. PHYSICAL EXAM: General Impression: Alert and oriented x3, not in acute distress HEENT: 2 x 2 centimeters hematoma over the left forehead with overlying abrasion, extra-ocular movements intact, pupils equal and reactive to light bilaterally, mucous membranes moist. Cardiovascular: Heart regular rate and rhythm Chest: Able to complete full sentences, no retractions, no tachypnea Abdomen: abdomen soft, non-tender, non-distended, no organomegaly Musculoskeletal: Pulses present and equal in all extremities, no peripheral edema Motor: no focal deficits noted Neurological: CN II-XII grossly intact, no focal motor or sensory deficits noted Skin: Intact with no visualized rashes Psych: Normal affect and mood ED course: 76-year-old female presents to the emergency department for head injury after mechanical fall. She has had pain and lower back pain. Vital signs upon arrival are within acceptable limits. Patient is well-appearing at bedside. Computed tomography scan of the head and C-spine shows no acute processes. There does appear to be a large left frontal acute scalp hematoma. Lumbar x-ray shows no evidence of fracture. Patient observed in the emergency department for proximal to 1 hour 30 minutes. She is reevaluated at 1:15 PM and found to be stable medical condition. Patient stable for discharge. - Related Data Home Medications Medication Instructions Recorded Confirmed Cholecalciferol [Vitamin D3 (25 1,000 unit PO DAILY 11/25/20 11/25/20 Mcg = 1000 Iu)] Clopidogrel [Plavix] 75 mg PO DAILY 11/25/20 11/25/20 L.acidoph,Paracasei, B.lactis 1 cap PO DAILY 11/25/20 11/25/20 [Probiotic] Levothyroxine Sodium [Synthroid] 150 mcg PO DAILY 11/25/20 11/25/20 Losartan Potassium [Cozaar] 50 mg PO DAILY 11/25/20 11/25/20 Meloxicam [Mobic] 15 mg PO DAILY PRN 11/25/20 11/25/20 Rosuvastatin Calcium [Crestor] 10 mg PO DAILY 11/25/20 11/25/20 metFORMIN HCL [Glucophage] 500 mg PO BID 11/25/20 11/25/20 traMADol HCL 50 mg PO Q6H PRN 11/25/20 11/25/20 Allergies Allergy/AdvReac Type Severity Reaction Status Date / Time codeine Allergy Nausea Verified 07/16/21 11:36 hydrocodone [From [facility]] Allergy Rash/Hives Verified 07/16/21 11:36 Review of Systems ROS Statement: Those systems with pertinent positive or pertinent negative responses have been documented in the HPI. ROS Other: All systems not noted in ROS Statement are negative. Past Medical History Past Medical History: CVA/TIA, Diabetes Mellitus, Hyperlipidemia, Hypertension, Thyroid Disorder Additional Past Medical History / Comment(s): moderate stenosis of aortic valve. History of Any Multi-Drug Resistant Organisms: None Reported Past Surgical History: Hysterectomy, Joint Replacement, Orthopedic Surgery Additional Past Surgical History / Comment(s): bilateral shoulder replacements, bilateral knees, caratedectomy. Past Psychological History: No Psychological Hx Reported Smoking Status: Former smoker Past Alcohol Use History: Occasional Past Drug Use History: None Reported General Exam Limitations: no limitations Course Vital Signs 07/16/21 11:37 Temperature 98.1 F Pulse Rate 82 Respiratory 18 Rate Blood Pressure 183/76 O2 Sat by Pulse 96 Oximetry Disposition Clinical Impression: Closed head injury Disposition: HOME SELF-CARE Condition: Good Instructions (If sedation given, give patient instructions): Head Injury (ED) Is patient prescribed a controlled substance at d/c from ED?: No Referrals: Sumanth Darby DO [Primary Care Provider] - 1-2 days
--- NOTE | 2021-07-16 12:34 | CT ---
EXAMINATION TYPE: CT brain shilo talley DATE OF EXAM: 07/16/2021 COMPARISON: NONE HISTORY: Fall, head injury with contusion, swelling, headache, and neck pain. CT DLP: 1225.4 mGycm. Automated Exposure Control for Dose Reduction was Utilized. TECHNIQUE: CT scan of the head and cervical spine are performed without contrast. FINDINGS: There is no acute intracranial hemorrhage or midline shift identified. Mild ventricular a nd sulcal prominence. Itlozjew-ei-xpmbmu low-attenuation in the deep and periventricular white matte r most likely consistent with chronic small vessel ischemic change in patient of this age. There is l arge acute scalp hematoma left frontal region axial image 29. The globes are intact and the visualize d sinuses are clear. Nasal septum deviated to right of midline. Calvarium is intact. Cervical spine is visualized in its entirety from C1 through upper thoracic levels and demonstrates l evoconvex centered upper thoracic spine. Prevertebral soft tissue appears within normal limits. The C1-C2 articulation is within normal limits on coronal images. Slight grade 1 anterolisthesis C3 on C4 and C4 on C5 and C7 on T1 slight grade 1 retrolisthesis C5 on C6. Vertebral body heights are maint ained. Moderate disc space narrowing and spurring C5-C6 and C6-C7 levels. Prominent spur effaces the anterior thecal sac C6-C7 level. Posterior spur disc complex effaces the anterior thecal sac C5-C6 le amilcar. Review of axial images shows multilevel uncovertebral and facet degenerative changes contributin g to multilevel bilateral neural foraminal narrowing. Thyroid gland is both within normal limits. Shelly g apices show no pneumothorax. IMPRESSION: 1. There is no acute fracture or dislocation evident in the cervical spine. 2. No acute intracranial hemorrhage or midline shift is seen. Large left frontal acute scalp hematoma .
--- NOTE | 2021-07-16 13:00 | XR ---
EXAMINATION TYPE: XR lumbar spine 2 or 3V DATE OF EXAM: 07/16/2021 CLINICAL HISTORY: Pain after falling injury. TECHNIQUE: Frontal and lateral images of the lumbar spine are obtained. COMPARISON: Lumbar spine x-ray one month earlier. FINDINGS: There are 5 lumbar type vertebral bodies redemonstrated. The lumbar spine redemonstrate d extroconvex scoliosis centered at L3-L4 level without evidence of acute fracture or dislocation. Alig nment is straightened on the lateral image is similar to prior. Vertebral body heights are maintained . Nghv-bg-[id number] multilevel disc space narrowing redemonstrated. Multilevel facet arthropathy redem onstrated. Moderate calcification of the overlying aorta redemonstrated. IMPRESSION: As above.
== END 2021-07-16 13:26 | disposition home or self-care (01) ==
LOC: EC 11:34
DX: S00.03XA Contusion of scalp, initial encounter (principal); E11.9 Type 2 diabetes mellitus without complications; I10 Essential (primary) hypertension; E78.5 Hyperlipidemia, unspecified; Z79.02 Long term (current) use of antithrombotics/antiplatelets; Z79.1 Long term (current) use of non-steroidal anti-inflammatories (NSAID); Z79.84 Long term (current) use of oral hypoglycemic drugs; Z86.73 Personal history of transient ischemic attack (TIA), and cerebral infarction without residual deficits; Z87.891 Personal history of nicotine dependence; Z88.5 Allergy status to narcotic agent; W01.0XXA Fall on same level from slipping, tripping and stumbling without subsequent striking against object, initial encounter; Y92.009 Unspecified place in unspecified non-institutional (private) residence as the place of occurrence of the external cause
CPT/HCPCS: 72100; 72125; 70450; 99284; 96372; J2270

== ENCOUNTER → 2021-07-22 | Outpatient (CLI) | payer MEDICARE ==
--- NOTE | 2021-07-24 14:30 | MM ---
Reason for exam: screening (asymptomatic). Last mammogram was performed 1 year and 1 month ago. History: Patient is postmenopausal, history of other cancer, and is nulliparous. Family history of breast cancer in mother at age 75. Benign excisional biopsy of the left breast. Physical Findings: A clinical breast exam by your physician is recommended on an annual basis and results should be correlated with mammographic findings. MG 3D Screening Mammo W/Cad Bilateral CC and MLO view(s) were taken. Prior study comparison: July 04, 2020, bilateral MG 3d screening mammo w/cad. June 18, 2019, bilateral MG 3d screening mammo w/cad. May 31, 2018, bilateral MG 3d screening mammo w/cad. May 11, 2017, bilateral MG 3d screening mammo w/cad. The breast tissue is heterogeneously dense. This may lower the sensitivity of mammography. Benign oil cyst calcifications. Area of asymmetric density remain unchanged. No significant changes when compared with prior studies. ASSESSMENT: Benign, BI-RAD 2 RECOMMENDATION: Routine screening mammogram of both breasts in 1 year. Patient should continue monthly self breast exams. A negative report should not preclude additional follow up of suspicious palpable abnormalities.
== END | disposition home or self-care (01) ==
LOC: RADMAMWWP 13:44
PROVIDERS: ATTEND Internal Medicine
DX: Z12.31 Encounter for screening mammogram for malignant neoplasm of breast (principal); Z78.0 Asymptomatic menopausal state; Z80.3 Family history of malignant neoplasm of breast
CPT/HCPCS: 77063; 77067

== ENCOUNTER → 2021-10-22 | Outpatient (CLI) | payer MEDICARE ==
[2021-10-22 14:30] LABS: Basophils # (A) 0.05 X 10*3/uL (0.00-0.10); Basophils % (A) 0.9 %; Eosinophils # (A) 0.25 X 10*3/uL (0.04-0.35); Eosinophils % (A) 4.3 %; HCT 44.8 % (37.2-46.3); HGB 14.1 g/dL (12.0-15.0); Lymphocytes # (A) 1.22 X 10*3/uL (0.90-5.00); Lymphocytes % (A) 20.8 %; MCH 29.3 pg (27.0-32.0); MCHC 31.5 g/dL (32.0-37.0); MCV 92.9 fL (80.0-97.0); Mean Platelet Volume 11.3 fL (9.5-12.2); Monocytes # (A) 0.53 X 10*3/uL (0.20-1.00); Neutrophils # (A) 3.79 X 10*3/uL (1.80-7.70); Neutrophils % (A) 64.7 %; Platelet Count 156 X 10*3/uL (140-440); RBC 4.82 X 10*6/uL (4.10-5.20); RDW 12.9 % (11.5-14.5); WBC 5.86 X 10*3/uL (4.50-10.00)
[2021-10-22 19:57] LABS: ALT 15 U/L (8-44); AST 18 U/L (13-35); African American GFR (CKD) 105.2 (60.0-200.0); Albumin 4.2 g/dL (3.8-4.9); Albumin/Globulin Ratio 1.67 (1.60-3.17); Alkaline Phosphatase 96 U/L (41-126); Amylase 44 U/L (23-121); BUN/Creat Ratio 31.11 Ratio (12.00-20.00); Blood Urea Nitrogen 17.7 mg/dL (9.0-27.0); Calcium 9.3 mg/dL (8.7-10.3); Carbon Dioxide 22.8 mmol/L (20.0-27.5); Chloride 105 mmol/L (96-109); Chol/HDL Ratio 5.23 Ratio; GGT 13 U/L (0-38); Globulin 2.5 g/dL (1.6-3.3); Glucose 151 mg/dL (70-110); LDL Cholesterol,Calculated 173.2 mg/dL (0.0-131.0); Lipase 22 U/L (14-63); Non-African American GFR(CKD) 90.7 (60.0-200.0); Potassium 4.4 mmol/L (3.5-5.5); Sodium 140 mmol/L (135-145); Total Protein 6.7 g/dL (6.2-8.2)
== END | disposition home or self-care (01) ==
LOC: LABWHC1 09:59
PROVIDERS: ATTEND Internal Medicine
DX: E11.65 Type 2 diabetes mellitus with hyperglycemia (principal); E78.3 Hyperchylomicronemia; E55.9 Vitamin D deficiency, unspecified
CPT/HCPCS: 36415; 80053; 80061; 82150; 82306; 82607; 82977; 83036; 83690; 84443; 85025

== ENCOUNTER 2022-02-27 16:53 | Inpatient (IN) | payer MEDICARE ==
[2022-02-27] MEDS ORDERED: SODIUM CHLORIDE 0.9% 500 ML 500 ML IV STA (17:28)
[2022-02-27] MEDS ORDERED: ATROPINE SULFATE 0.1 MG/ML 10ML SYRINGE IV STA (17:31)
--- NOTE | 2022-02-27 17:47 | ED ---
General Adult HPI - General Chief complaint: Arrhythmia/Palpitations Stated complaint: slow heart rate, breathlessness Time Seen by Provider: 02/27/22 17:00 Source: patient, RN notes reviewed, old records reviewed Mode of arrival: ambulatory Limitations: no limitations - History of Present Illness Initial comments: This is a 76-year-old female presents emergency department stating for the last 2 weeks she's been more tired especially when she walks up steps and lightheaded when she bends over. Patient states today her watch told to her heart rate was in the 40s and 30s. This is when she decided come to the emergency department. Patient denies any chest pain or palpitations. Patient denies shortness of breath. Patient denies any recent fever chills or cough per patient denies abdominal pain patient has nausea vomiting diarrhea. Patient denies any history of similar. Patient is on a blood pressure medication but she does not remember the name - Related Data Home Medications Medication Instructions Recorded Confirmed Cholecalciferol [Vitamin D3 (25 1,000 unit PO DAILY 11/25/20 11/25/20 Mcg = 1000 Iu)] Clopidogrel [Plavix] 75 mg PO DAILY 11/25/20 11/25/20 L.acidoph,Paracasei, B.lactis 1 cap PO DAILY 11/25/20 11/25/20 [Probiotic] Levothyroxine Sodium [Synthroid] 150 mcg PO DAILY 11/25/20 11/25/20 Losartan Potassium [Cozaar] 50 mg PO DAILY 11/25/20 11/25/20 Meloxicam [Mobic] 15 mg PO DAILY PRN 11/25/20 11/25/20 Rosuvastatin Calcium [Crestor] 10 mg PO DAILY 11/25/20 11/25/20 metFORMIN HCL [Glucophage] 500 mg PO BID 11/25/20 11/25/20 traMADol HCL 50 mg PO Q6H PRN 11/25/20 11/25/20 Allergies Allergy/AdvReac Type Severity Reaction Status Date / Time codeine Allergy Nausea Verified 02/27/22 19:21 hydrocodone [From [place]] Allergy Rash/Hives Verified 02/27/22 19:21 Review of Systems ROS Statement: Those systems with pertinent positive or pertinent negative responses have been documented in the HPI. ROS Other: All systems not noted in ROS Statement are negative. Past Medical History Past Medical History: CVA/TIA, Diabetes Mellitus, Hyperlipidemia, Hypertension, Thyroid Disorder Additional Past Medical History / Comment(s): moderate stenosis of aortic valve. History of Any Multi-Drug Resistant Organisms: None Reported Past Surgical History: Hysterectomy, Joint Replacement, Orthopedic Surgery Additional Past Surgical History / Comment(s): bilateral shoulder replacements, bilateral knees, caratedectomy. Past Psychological History: No Psychological Hx Reported Smoking Status: Former smoker Past Alcohol Use History: Occasional Past Drug Use History: None Reported General Exam - General Exam Comments Initial Comments: GENERAL: Patient is well-developed and well-nourished. Patient is nontoxic and well- hydrated and is in no acute distress. ENT: Neck is soft and supple. No significant lymphadenopathy is noted. Oropharynx is clear. Moist mucous membranes. Neck has full range of motion without eliciting any pain. EYES: The sclera were anicteric and conjunctiva were pink and moist. Extraocular movements were intact and pupils were equal round and reactive to light. Eyelids were unremarkable. PULMONARY: Unlabored respirations. Good breath sounds bilaterally. No audible rales rhonchi or wheezing was noted. CARDIOVASCULAR: Patient's heart rate is about 40 beats a minute and bradycardic ABDOMEN: Soft and nontender with normal bowel sounds. SKIN: Skin is clear with no lesions or rashes and otherwise unremarkable. NEUROLOGIC: Patient is alert and oriented x3. Cranial nerves II through XII are grossly intact. Motor and sensory are also intact. Normal speech, volume and content. Symmetrical smile. MUSCULOSKELETAL: Normal extremities with adequate strength and full range of motion. No lower extremity swelling or edema. No calf tenderness. LYMPHATICS: No significant lymphadenopathy is noted PSYCHIATRIC: Normal psychiatric evaluation. Limitations: no limitations Course Vital Signs 02/27/22 02/27/22 02/27/22 17:07 17:28 18:58 Temperature 98.2 F Pulse Rate 37 L 36 L 35 L Respiratory 20 18 18 Rate Blood Pressure 164/87 114/64 162/93 O2 Sat by Pulse 99 94 L 100 Oximetry Medical Decision Making - Medical Decision Making EKG shows second-degree block with a three-day 31 conduction. There is no ST segment elevation or depression. - Lab Data Result diagrams: 02/27/22 17:17 02/27/22 17:17 Lab Results 02/27/22 02/27/22 02/27/22 Range/Units 17:17 17:17 17:17 WBC 8.6 (3.8-10.6) k/uL RBC 4.74 (3.80-5.40) m/uL Hgb 14.2 (11.4-16.0) gm/dL Hct 44.4 (34.0-46.0) % MCV 93.7 (80.0-100.0) fL MCH 29.9 (25.0-35.0) pg MCHC 32.0 (31.0-37.0) g/dL RDW 13.5 (11.5-15.5) % Plt Count 163 (150-450) k/uL MPV 9.0 Neutrophils % 60 % Lymphocytes % 25 % Monocytes % 7 % Eosinophils % 4 % Basophils % 1 % Neutrophils # 5.2 (1.3-7.7) k/uL Lymphocytes # 2.2 (1.0-4.8) k/uL Monocytes # 0.6 (0-1.0) k/uL Eosinophils # 0.4 (0-0.7) k/uL Basophils # 0.1 (0-0.2) k/uL PT 10.5 (9.0-12.0) sec INR 1.0 (<1.2) APTT 25.2 (22.0-30.0) sec Sodium 137 (137-145) mmol/L Potassium 4.6 (3.5-5.1) mmol/L Chloride 104 (98-107) mmol/L Carbon Dioxide 22 (22-30) mmol/L Anion Gap 11 mmol/L BUN 26 H (7-17) mg/dL Creatinine 0.75 (0.52-1.04) mg/dL Est GFR (CKD-EPI)AfAm >90 (>60 ml/min/1.73 sqM) Est GFR (CKD-EPI)NonAf 78 (>60 ml/min/1.73 sqM) Glucose 167 H (74-99) mg/dL Calcium 9.4 (8.4-10.2) mg/dL Magnesium 2.0 (1.6-2.3) mg/dL Total Bilirubin 0.6 (0.2-1.3) mg/dL AST 21 (14-36) U/L ALT 16 (4-34) U/L Alkaline Phosphatase 90 (38-126) U/L Troponin I (0.000-0.034) ng/mL Total Protein 7.5 (6.3-8.2) g/dL Albumin 4.4 (3.5-5.0) g/dL TSH 1.420 (0.465-4.680) mIU/L 02/27/22 Range/Units 17:17 WBC (3.8-10.6) k/uL RBC (3.80-5.40) m/uL Hgb (11.4-16.0) gm/dL Hct (34.0-46.0) % MCV (80.0-100.0) fL MCH (25.0-35.0) pg MCHC (31.0-37.0) g/dL RDW (11.5-15.5) % Plt Count (150-450) k/uL MPV Neutrophils % % Lymphocytes % % Monocytes % % Eosinophils % % Basophils % % Neutrophils # (1.3-7.7) k/uL Lymphocytes # (1.0-4.8) k/uL Monocytes # (0-1.0) k/uL Eosinophils # (0-0.7) k/uL Basophils # (0-0.2) k/uL PT (9.0-12.0) sec INR (<1.2) APTT (22.0-30.0) sec Sodium (137-145) mmol/L Potassium (3.5-5.1) mmol/L Chloride (98-107) mmol/L Carbon Dioxide (22-30) mmol/L Anion Gap mmol/L BUN (7-17) mg/dL Creatinine (0.52-1.04) mg/dL Est GFR (CKD-EPI)AfAm (>60 ml/min/1.73 sqM) Est GFR (CKD-EPI)NonAf (>60 ml/min/1.73 sqM) Glucose (74-99) mg/dL Calcium (8.4-10.2) mg/dL Magnesium (1.6-2.3) mg/dL Total Bilirubin (0.2-1.3) mg/dL AST (14-36) U/L ALT (4-34) U/L Alkaline Phosphatase (38-126) U/L Troponin I 0.029 (0.000-0.034) ng/mL Total Protein (6.3-8.2) g/dL Albumin (3.5-5.0) g/dL TSH (0.465-4.680) mIU/L Disposition Clinical Impression: Bradycardia, Second degree heart block Disposition: ADMITTED IP TO THIS HOSP Referrals: Sumanth Darby DO [Primary Care Provider] - 1-2 days Time of Disposition: 19:24
[2022-02-27 17:48] LABS: Basophils # (A) 0.1 k/uL (0-0.2); Basophils % (A) 1 %; Eosinophils # (A) 0.4 k/uL (0-0.7); Eosinophils % (A) 4 %; HCT 44.4 % (34.0-46.0); HGB 14.2 gm/dL (11.4-16.0); Lymphocytes # (A) 2.2 k/uL (1.0-4.8); Lymphocytes % (A) 25 %; MCH 29.9 pg (25.0-35.0); MCV 93.7 fL (80.0-100.0); Monocytes # (A) 0.6 k/uL (0-1.0); Monocytes % (A) 7 %; Neutrophils # (A) 5.2 k/uL (1.3-7.7); Neutrophils % (A) 60 %; Platelet Count 163 k/uL (150-450); RBC 4.74 m/uL (3.80-5.40); RDW 13.5 % (11.5-15.5); WBC 8.6 k/uL (3.8-10.6)
[2022-02-27 17:57] LABS: ALT 16 U/L (4-34); AST 21 U/L (14-36); African American GFR (CKD) >90 (>60 ml/min/1.73 sqM); Albumin 4.4 g/dL (3.5-5.0); Alkaline Phosphatase 90 U/L (38-126); Anion Gap 11 mmol/L; Blood Urea Nitrogen 26 mg/dL (7-17); Calcium 9.4 mg/dL (8.4-10.2); Carbon Dioxide 22 mmol/L (22-30); Chloride 104 mmol/L (98-107); Glucose 167 mg/dL (74-99); Non-African American GFR(CKD) 78 (>60 ml/min/1.73 sqM); Potassium 4.6 mmol/L (3.5-5.1); Sodium 137 mmol/L (137-145); Total Bilirubin 0.6 mg/dL (0.2-1.3); Total Protein 7.5 g/dL (6.3-8.2)
--- NOTE | 2022-02-27 17:57 | XR ---
EXAMINATION TYPE: XR chest 2V DATE OF EXAM: 02/27/2022 COMPARISON: 11/25/2020 HISTORY: Chest pain TECHNIQUE: 2 views FINDINGS: Heart and mediastinum are normal. Lungs are clear. Diaphragm is normal. There are bilateral shoulder prostheses. There is no pleural effusion. Thoracic spine is intact. IMPRESSION: No active cardiopulmonary disease. No change.
[2022-02-27 17:58] LABS: Partial Thromboplastin Time 25.2 sec (22.0-30.0); Prothrombin Time 10.5 sec (9.0-12.0)
[2022-02-27] MEDS ORDERED: NITROGLYCERIN SL TABS 0.4 MG TAB SUBLINGUAL PRN (19:24)
[2022-02-27] MEDS ORDERED: IBUPROFEN 600 MG TAB PO STA (20:14)
--- NOTE | 2022-02-27 22:34 | P.HPIM ---
History of Present Illness H&P Date: 02/27/22 Chief Complaint: slow heart rate, breathlessness 76-year-old female presents emergency department stating for the last 2 weeks she's been more tired especially when she walks up steps and lightheaded when she bends over. Patient states today her watch told to her heart rate was in the 40s and 30s. This is when she decided come to the emergency department. Patient denies any chest pain or palpitations. Patient denies shortness of breath. Patient denies any recent fever chills or cough per patient denies abdominal pain patient has nausea vomiting diarrhea. Patient denies any history of similar. Patient is on a blood pressure medication but she does not remember the name Lab review reveals WBC 8.6, hemoglobin 14.2 and platelets 163, sodium 137, potassium 4.6, UN/creatinine 26/0.75 and blood glucose 167; TSH of 1.4; troponin of 0.0-9 EKG shows second-degree block with a three-day 31 conduction. There is no ST segment elevation or depression. Review of Systems REVIEW OF SYSTEMS: CONSTITUTIONAL: No fever, no malaise, no fatigue. HEENT: No recent visual problems or hearing problems. Denied any sore throat. CARDIOVASCULAR: No chest pain, orthopnea, PND, no palpitations, no syncope. PULMONARY: No shortness of breath, no cough, no hemoptysis. GASTROINTESTINAL: No diarrhea, no nausea, no vomiting, no abdominal pain. NEUROLOGICAL: No headaches, no weakness, no numbness. HEMATOLOGICAL: Denies any bleeding or petechiae. GENITOURINARY: Denies any burning micturition, frequency, or urgency. MUSCULOSKELETAL/RHEUMATOLOGICAL: Denies any joint pain, swelling, or any muscle pain. ENDOCRINE: Denies any polyuria or polydipsia. The rest of the 14-point review of systems is negative. Past Medical History Past Medical History: CVA/TIA, Diabetes Mellitus, Hyperlipidemia, Hypertension, Thyroid Disorder Additional Past Medical History / Comment(s): moderate stenosis of aortic valve. History of Any Multi-Drug Resistant Organisms: None Reported Past Surgical History: Hysterectomy, Joint Replacement, Orthopedic Surgery Additional Past Surgical History / Comment(s): bilateral shoulder replacements, bilateral knees, caratedectomy. Past Psychological History: No Psychological Hx Reported Smoking Status: Former smoker Past Alcohol Use History: Occasional Past Drug Use History: None Reported Medications and Allergies Home Medications Medication Instructions Recorded Confirmed Type Clopidogrel [Plavix] 75 mg PO DAILY 11/25/20 02/27/22 History Levothyroxine Sodium [Synthroid] 150 mcg PO DAILY 11/25/20 02/27/22 History Losartan Potassium [Cozaar] 50 mg PO DAILY 11/25/20 02/27/22 History Glimepiride [Amaryl] 2 mg PO W/SUPPER 02/27/22 02/27/22 History Ibuprofen [Motrin] 800 mg PO BID PRN 02/27/22 02/27/22 History Rosuvastatin Calcium [Crestor] 5 mg PO HS 02/27/22 02/27/22 History Zinc 50 mg PO MOWEFR 02/27/22 02/27/22 History metFORMIN HCL [Glucophage] 850 mg PO BID 02/27/22 02/27/22 History Allergies Allergy/AdvReac Type Severity Reaction Status Date / Time codeine Allergy Nausea Verified 02/27/22 19:21 hydrocodone [From [place]] Allergy Rash/Hives Verified 02/27/22 19:21 Physical Exam Vitals: Vital Signs Temp Pulse Resp BP Pulse Ox 02/27/22 20:00 35 L 18 125/86 97 02/27/22 18:58 35 L 18 162/93 100 02/27/22 17:28 36 L 18 114/64 94 L 02/27/22 17:07 98.2 F 37 L 20 164/87 99 Intake and Output 02/27/22 02/27/22 02/27/22 06:59 14:59 22:59 Other: Weight 90.718 kg - Constitutional General appearance: Present: average body habitus, cooperative, no acute distress - EENT Eyes: Present: anicteric sclerae, EOMI, PERRLA, normal appearance ENT: Present: hearing grossly normal, normal oropharynx Ears: bilateral: normal - Neck Neck: Present: normal ROM. Absent: lymphadenopathy, rigidity, thyromegaly Carotids: negative: bruit present Thyroid: bilateral: normal size, negative: enlarged, nodule - Respiratory Respiratory: bilateral: CTA, negative: rales, rhonchi, wheezing - Cardiovascular Rhythm: regular Heart sounds: normal: S1, S2 Abnormal Heart Sounds: Absent: systolic murmur, diastolic murmur - Gastrointestinal General gastrointestinal: Present: normal bowel sounds, soft. Absent: distended, organomegaly, tenderness - Genitourinary Genitourinary Comment(s): deferred - Integumentary Integumentary: Present: normal turgor. Absent: jaundiced, rash, ulcer - Neurologic Neurologic: Present: CNII-XII intact. Absent: focal deficits - Musculoskeletal Musculoskeletal: Present: gait normal, strength equal bilaterally - Psychiatric Psychiatric: Present: A&O x's 3, appropriate affect, intact judgment & insight Results CBC & Chem 7: 02/27/22 17:17 02/27/22 17:17 Labs: Abnormal Lab Results - Last 24 Hours (Table) 02/27/22 Range/Units 17:17 BUN 26 H (7-17) mg/dL Glucose 167 H (74-99) mg/dL Assessment and Plan Assessment: 1. Bradycardia; second-degree heart block - Patient is admitted to telemetry; we will monitor EKG and trend troponin - Atropine 0.5 mg IV to be used when necessary 2. TIA/CVA; continue aspirin and Plavix 3. Hypothyroidism; levothyroxine 150 MCG daily 4. Hypertension; losartan 50 mg daily 5. Hyperlipidemia; continue with home statin therapy 6. Diabetes mellitus type 2; we will hold off on home dose of Amaryl 2 mg daily and metformin 850 mg twice a day; monitor Accu-Cheks before meals and at bedtime with insulin sliding scale DVT prophylaxis SCDs CODE STATUS; full code
[2022-02-28] MEDS: LEVOTHYROXINE 75 MCG TAB PO SCH (05:41)
[2022-02-28] MEDS ORDERED: ASPIRIN 325 MG TAB PO SCH (09:00)
[2022-02-28] MEDS ORDERED: CLOPIDOGREL 75 MG TAB PO SCH (09:00)
[2022-02-28] MEDS: LOSARTAN 50 MG TAB PO SCH (09:32)
[2022-02-28] MEDS: SODIUM CHLORIDE 0.9% 1,000 ML IV SCH ×3 (09:32→21:29)
[2022-02-28] MEDS: metFORMIN 850 MG TAB PO SCH ×2 (09:33→20:08)
[2022-02-28] MEDS: LORazepam 0.5 MG TAB PO STA ×2 (10:02→11:25)
--- NOTE | 2022-02-28 10:33 | CONS ---
CONSULTATION Kenzie Kraus is a 76-year-old lady who has most of her health care in the [facility]. She came into the hospital because of a 2- to 3-week history of feeling weak, tired, dizzy, lightheaded and near-syncopal. She was found to be in a second- degree heart block with a heart rate of 36 beats per minute, hospitalized. Atropine was given in the ER without any improvement. She has hypertension, hyperlipidemia, type 2 diabetes, degenerative joint disease and has had previous bilateral shoulder replacement. At the time of my evaluation she is resting comfortably and heart rate is about 38 beats per minute. However, she does have history of second-degree heart block. I explained to the patient the findings on the EKG and her symptoms. She has what seems to be a right bundle branch block pattern as well underlying. She has significant conduction system disease and she will require a dual-chamber pacemaker. I explained to her the rationale, risks, benefits and options. I spoke to the patient and also talked to her , and we will perform procedure around 1 p.m. today. The rationale, risks, benefits and options related to permanent pacemaker and temporary pacemaker were explained. She will have a temporary pacemaker placed first and a dual- chamber pacemaker from infraclavicular approach after checking a venogram. Risk of infection, bleeding, injury to the lung and heart were explained. Patient understands all details and wishes to proceed with the procedure. PAST MEDICAL HISTORY: 1. Type 2 diabetes. 2. Hypertension. 3. Hyperlipidemia. 4. History of aortic stenosis; details are unclear. 5. No evidence of any prior AR or CAD. PHYSICAL EXAMINATION: On examination, blood pressure is 128/70. Pulse rate is about 38 per minute. HEENT unremarkable. Fundus was not examined by me. Neck is supple. No JVD. I do not hear a carotid bruit. Heart exam reveals S1, S2 with ejection systolic murmur at the base. Second heart sound is preserved. Lungs reveal diminished air entry. Abdomen is soft, nontender. Lower extremities reveal diminished pulses. Central nervous system is normal. IMPRESSION: 1. Second-degree heart block with significant symptoms of dizziness, lightheadedness, near-syncope. Patient has underlying right bundle significant conduction system disease. 2. Moderate aortic stenosis. 3. Hypertension. 4. Hyperlipidemia. 5. Diabetes. RECOMMENDATIONS: I am recommending dual-chamber pacemaker. Patient understands risks, benefits, options and rationale and wishes to proceed. MMDENISE / IJN: [id number] /
[2022-02-28] MEDS ORDERED: ceFAZolin 1,000 MG in SODIUM CHLORIDE 0.9% IRRIG BTL 250 ML IRRIGATION ONE (10:44)
[2022-02-28] MEDS ORDERED: LORazepam 0.5 MG TAB PO STA (11:24)
[2022-02-28] MEDS ORDERED: LIDOCAINE 1% INJ 10MG/ML (20 ML MDV) ONE ×3 (12:07→14:00)
[2022-02-28] MEDS ORDERED: IV FLUID CONTINUATION 1,000 ML IV ONE (12:45)
[2022-02-28] MEDS ORDERED: MIDAZOLAM 2 MG/2 ML VIAL IVP ONE (13:24)
[2022-02-28] MEDS ORDERED: LIDOCAINE 1% INJ 10MG/ML (20 ML MDV) SQ ONE ×3 (13:26→14:05)
[2022-02-28] MEDS ORDERED: fentaNYL (PF) 50 MCG/ML 2 ML AMP ONE (14:03)
[2022-02-28] MEDS ORDERED: fentaNYL (PF) 50 MCG/ML 2 ML AMP IVP ONE (14:05)
[2022-02-28 14:25] LABS: Chol/HDL Ratio 4.69 Ratio; LDL Cholesterol,Calculated 125.8 mg/dL (0.0-131.0)
--- NOTE | 2022-02-28 16:06 | PCN ---
PROCEDURE NOTE PROCEDURE: 1. Transvenous temporary pacemaker from right femoral venous approach. 2. Permanent dual-chamber pacemaker from left infraclavicular approach. PERFORMED BY: Dr. Papo Campbell. Assisted by Dr. David Morton. Moderate conscious sedation time was 111 minutes. Patient was administered Versed and fentanyl. Oxygen saturation, hemodynamics and EKG were monitored closely. CLINICAL INFORMATION: Kenzie Kraus is a 76-year-old lady with a history of hypertension, type 2 diabetes, hyperlipidemia, moderate aortic stenosis, who has her care by a radiologist physician in the [facility]. She came in with complaints of dizziness, lightheadedness, near- syncopal features. She was initially in second-degree heart block and later on went on to have a complete heart block picture with a ventricular rate of about 35 beats per minute. She was advised dual-chamber pacemaker and a temporary pacemaker and was brought in for the procedure electively after due discussion with the patient as well as her , Noemi. PROCEDURE NOTE: Under strict aseptic precautions and local anesthesia, a 6-Yoruba introducer was placed in the right femoral vein. Micropuncture needle access was used. Under fluoroscopic guidance, a balloon-tipped pacemaker was advanced and positioned in the right ventricle. Good threshold was obtained. The threshold was 0.5 mV. The pacemaker was set at a back-up rate of 30 beats per minute and it was sutured securely. I then started the permanent pacemaker procedure. However, we had difficulty getting a venous access from the left upper extremity and therefore we could not do a venogram. I requested Dr. Morton to assist me with the access. Under strict aseptic precautions and local anesthesia, Dr. Morton obtained access into the left axillary vein under fluoroscopic guidance. Two access points were obtained. A linear incision was made almost parallel to the clavicle and over her existing tattoo. Blunt dissection was carried to the level of the fascia and a pocket was made. Good hemostasis was secured. Subsequently two 6-Yoruba introducers were placed. Through the medial introducer, I advanced and positioned the ventricular lead initially in the septum, and then I had difficulty getting a good threshold. Therefore I went down into the right ventricular apex. Good sensitivities and thresholds were obtained. The lead was secured to the underlying muscle with two separate sutures. The lead was checked in ALEXYS and BERNAL positions to look at the location of the tip. I also performed a ten-volt pacing. The lead was secured to the underlying muscle by two separate sutures to the sleeve. I then advanced under fluoroscopic guidance the atrial lead and positioned this in the right atrial appendage. Good thresholds and sensitivities were obtained. This lead was also secured to the underlying muscle by 0 silk sutures. The lead position was checked in ALEXYS and BERNAL and also I did a ten-volt pacing. Subsequently both the leads were connected to the pulse generator and the pulse generator was also secured in the line of the incision to the underlying muscle. Prior to placement of the pulse generator, the entire pocket was irrigated with antibiotic solution. The wound was then closed in two layers. Excellent hemostasis was secured. Patient tolerated the procedure well without complication. She will have a chest x-ray and then will have another repeat chest x-ray tomorrow along with a device check. Details of the procedure were discussed with the patient as well as her family members, including her Noemi and daughter. PACEMAKER PROCEDURE DETAILS: Pacemaker pulse generator pest technician [employer], model Assurity MRI 2272, serial #[id number]. Atrial lead pest technician [employer], model Tendril STS 2088TC/46, serial #[id number]. Ventricular lead pest technician [employer], model Tendril STS 2088 TC/52, serial #[id number]. Atrial threshold was 1.5 V at 0.4 milliseconds. P-waves were 3.7 mV. Lead impedance was 740 ohms. Ventricular threshold was 1.0 V at 0.4 milliseconds. When I placed the pacemaker, the R-waves were about 8 to 9 mV. Lead impedance was 690 ohms. The pacemaker was set in a DDD mode with a low rate of 50, high rate of 130, paced AV delay of 250 milliseconds and sensed AV delay of 225 milliseconds. Patient tolerated procedure well without complications. She was sent to the room in a stable condition. MMODL / IJN: [id number] /
--- NOTE | 2022-02-28 16:07 | XR ---
EXAMINATION TYPE: XR chest 1V portable DATE OF EXAM: 02/28/2022 COMPARISON: Yesterday HISTORY: Check lead placement TECHNIQUE: Single view FINDINGS: There is left axillary pacemaker with the lead tips over the right ventricle. Heart size is normal. No heart failure. No evidence of pleural effusion. There are no hilar masses. Mediastinum is normal. There is bilateral shoulder prosthesis. IMPRESSION: No active cardiopulmonary disease.
[2022-02-28] MEDS ORDERED: diazePAM 5 MG TAB PO PRN (16:59)
[2022-02-28] MEDS: ACETAMINOPHEN TAB 325 MG TAB PO PRN ×2 (17:00→23:30)
[2022-02-28] MEDS ORDERED: amLODIPine 5 MG TAB PO STA (17:21)
[2022-02-28 20:16] LABS: Glucose,Whole Blood 250 mg/dL (75-99)
[2022-02-28] MEDS ORDERED: ATORVASTATIN 10 MG TAB PO SCH (21:00)
[2022-03-01] MEDS: LEVOTHYROXINE 75 MCG TAB PO SCH (05:56)
[2022-03-01] MEDS: ACETAMINOPHEN TAB 325 MG TAB PO PRN (06:04)
[2022-03-01 06:14] LABS: Glucose,Whole Blood 144 mg/dL (75-99)
[2022-03-01] MEDS ORDERED: amLODIPine 5 MG TAB PO SCH (09:00)
[2022-03-01] MEDS ORDERED: ZINC SULFATE 220 MG CAP PO SCH (09:00)
[2022-03-01] MEDS: LOSARTAN 50 MG TAB PO SCH (09:25)
[2022-03-01] MEDS: metFORMIN 850 MG TAB PO SCH (09:25)
[2022-03-01 09:41] VITALS: TEMP 97.5
--- NOTE | 2022-03-01 10:01 | ECHOF ---
Referral Reason:post pacemaker MEASUREMENTS -------- HEIGHT: 160.0 cm WEIGHT: 90.7 kg BP: 164/82 RVIDd: 2.3 cm (< 3.3) IVSd: 1.3 cm (0.6 - 1.1) LVIDd: 4.0 cm (3.9 - 5.3) LVPWd: 1.3 cm (0.6 - 1.1) IVSs: 2.1 cm LVIDs: 1.4 cm LVPWs: 1.7 cm Ao Diam: 3.2 cm (2.0 - 3.7) AV Cusp: 1.2 cm (1.5 - 2.6) LA Diam: 3.3 cm (2.7 - 3.8) MV EXCURSION: 13.536 mm (> 18.000) MV EF SLOPE: 72 mm/s (70 - 150) EPSS: 0.5 cm MV E Travon: 0.77 m/s MV DecT: 197 ms MV A Travon: 1.21 m/s MV E/A Ratio: 0.64 AV maxP.59 mmHg AV meanP.71 mmHg RAP: 5.00 mmHg RVSP: 14.47 mmHg FINDINGS -------- Paced rhythm. This was a technically difficult study with suboptimal views. The left ventricular size is normal. There is moderate concentric left ventricular hypertrophy. O verall left ventricular systolic function is normal with, an EF between 55 - 60 %. The right ventricle is normal in size. The left atrial size is normal. The right atrial size is normal. The aortic valve is trileaflet and appears structurally normal. There is moderate aortic stenosis p resent. Peak/mean gradient across the Aortic Valve is 34.59mmHg / 23.71mmHg. The mitral valve is normal. Mild mitral regurgitation is present. The tricuspid valve appears structurally normal. Mild tricuspid regurgitation present. Right vent ricular systolic pressure is normal at < 35 mmHg. There is no pulmonic regurgitation present. The aortic root size is normal. IVC Not well visulized. There is no pericardial effusion. CONCLUSIONS -------- 1. Paced rhythm. 2. The left ventricular size is normal. 3. There is moderate concentric left ventricular hypertrophy. 4. Overall left ventricular systolic function is normal with, an EF between 55 - 60 %. 5. The aortic valve is trileaflet and appears structurally normal. 6. There is moderate aortic stenosis present. 7. Peak/mean gradient across the Aortic Valve is 34.59mmHg / 23.71mmHg. 8. Mild mitral regurgitation is present. 9. Mild tricuspid regurgitation present. 10. There is no pericardial effusion. [employer]ACH[employer] SALES REPRESENTATIVE: Debby Shaffer RDCS
[2022-03-01 12:01] LABS: Glucose,Whole Blood 220 mg/dL (75-99)
[2022-03-01] MEDS ORDERED: ONDANSETRON 4 MG/2 ML VIAL IVP PRN (12:18)
--- NOTE | 2022-03-01 12:25 | XR ---
EXAMINATION TYPE: XR chest 2V DATE OF EXAM: 03/01/2022 COMPARISON: Chest x-ray 02/28/2022 HISTORY: Lead placement check TECHNIQUE: Frontal and lateral views of the chest are obtained. FINDINGS: There is a generator in the left pectoral region, leads are present in the right atrium an d ventricle as on prior exam. No evident pneumothorax or pleural effusion. Bilateral shoulder arthrop lasties are present. There are overlying leads. Cardiac mediastinal silhouette is stable. There is ev entration of the right hemidiaphragm. Aorta is dense. IMPRESSION: No acute abnormalities evident. Postprocedural changes.
[2022-03-01] MEDS ORDERED: PANTOPRAZOLE 40 MG/10 ML VIAL IVP SCH (12:30)
[2022-03-01 12:44] VITALS: BP 153/73; PULSE 69; RESP 16
--- NOTE | 2022-03-01 14:06 | P.PN ---
Subjective Progress Note Date: 03/01/22 HISTORY OF PRESENT ILLNESS: She is status post permanent pacemaker insertion. Patient denies chest pain or pressure. She denies shortness of breath. Patient's pacemaker was interrogated this morning and was found to be functioning properly. Chest x-ray completed and reviewed this morning. Vital signs are stable. PHYSICAL EXAM: VITAL SIGNS: Reviewed. GENERAL: Well-developed in no acute distress. NECK: Supple. No JVD or thyromegaly LUNGS: Respirations even and unlabored. Lungs essentially clear to auscultation bilaterally. HEART: Regular rate and rhythm. S1 and S2 heard. Systolic murmur noted. EXTREMITIES: Normal range of motion. No clubbing or cyanosis. Peripheral pulses intact. No lower extremity edema ASSESSMENT: Complete heart block, status post permanent pacemaker insertion Aortic stenosis Hypertension Hyperlipidemia Diabetes PLAN: Continue current cardiac medications Patient is stable for discharge from a cardiac standpoint She is to follow up with her primary cardiology as well as Dr. Campbell in 1 week Nurse practitioner note has been reviewed by physician. Signing provider agrees with the documented findings, assessment, and plan of care. Objective - Vital Signs Vital signs: Vital Signs Temp 97.5 F L 03/01/22 08:00 Pulse 69 03/01/22 12:00 Resp 16 03/01/22 12:00 BP 153/73 03/01/22 12:00 Pulse Ox 99 03/01/22 12:00 Intake & Output 02/28/22 03/01/22 03/01/22 18:59 06:59 18:59 Intake Total 355 450 120 Balance 355 450 120 Intake: IV 175 Intake, IV Titration 50 Amount ceFAZolin 2 gm In Sodium 50 Chloride 0.9% 50 ml @ 100 mls/hr IVPB Q6H [facility] Rx#: [id number] Oral 180 400 120 Other: # Voids 1 2 1 - Labs CBC & Chem 7: 02/27/22 17:17 02/27/22 17:17 Labs: Abnormal Lab Results - Last 24 Hours (Table) 02/27/22 02/28/22 03/01/22 Range/Units 17:17 20:15 06:09 POC Glucose (mg/dL) 250 H 144 H (75-99) mg/dL Triglycerides 323.00 H (0.00-149.00) mg/dL Cholesterol 242.00 H (0.00-200.00) mg/dL VLDL Cholesterol, Calc 64.60 H (5.00-40.00) mg/dL 03/01/22 Range/Units 12:00 POC Glucose (mg/dL) 220 H (75-99) mg/dL Triglycerides (0.00-149.00) mg/dL Cholesterol (0.00-200.00) mg/dL VLDL Cholesterol, Calc (5.00-40.00) mg/dL
[2022-03-01] MEDS: SODIUM CHLORIDE 0.9% 1,000 ML IV SCH ×2 (14:59→15:00)
--- NOTE | 2022-03-03 11:32 | P.DS ---
Providers Date of admission: 02/27/22 19:24 Expected date of discharge: 03/01/22 Attending physician: Anthony Garcia Consults: 02/27/22 19:24 Consult Physician Urgent Consulting Provider: [facility] Consult Reason/Comments: Bradycardia, second-degree heart block Do you want consulting provider notified?: Yes Primary care physician: Sumanth Darby Hospital Course: Final diagnosis -Bradycardia; second-degree heart block status post pacemaker placement -TIA/CVA -Hypothyroidism -Hypertension -Hyperlipidemia -Diabetes mellitus type 2 -DVT prophylaxis -full code Discharge disposition Patient is being discharged in a stable condition with guarded prognosis to home. Patient will follow-up with Dr. Darby in the outpatient setting upon discharge. Patient is to follow up with DR. Campbell cardiology as scheduled. Total time taken is greater than 35 minutes. Hospital Course This is a 76-year-old female who was recently admitted with bradycardia and ligh theadedness and was being closely monitored. Patient was evaluated by cardiology and underwent pacemaker placement. Patient will need close outpatient follow up this week. Patient received IV prophylactic antibiotics prior to discharge. Patient is anxious to go home. Currently no reports of chest pain, shortness of breath, or palpitations. Patient is afebrile. No reports of nausea or vomiting and patient is tolerating diet. Patient will be discharged home today. On exam vital signs are stable. Cardio S1, S2 are muffled. Respiratory system shows diminished breath sounds at the bases with no wheezing or rhonchi noted. Abdomen is soft and nontender. Nervous system shows no focal deficits. Please refer to medication reconciliation sheet for a list of medications. The impression and plan of care has been dictated by Shannan Hunt, Nurse Practitioner as directed. Dr. Jose MD I have performed a history and examination and MDM of this patient, discussed the same with the dictator, and agree with the dictator's assessment and plan as written ,documented as a scribe. Based on total visit time, I have performed more than 50% of the visit. Patient Condition at Discharge: Stable Plan - Discharge Summary Discharge Rx Participant: No New Discharge Prescriptions: New Pantoprazole Sodium [Protonix] 40 mg PO BID 30 Days #60 tab Acetaminophen Tab [Tylenol] 650 mg PO Q6HR PRN tab PRN Reason: Mild Pain amLODIPine [Norvasc] 5 mg PO DAILY #30 tab Ondansetron Odt [Zofran Odt] 4 mg PO Q8HR PRN #10 tab PRN Reason: Nausea Continue Losartan Potassium [Cozaar] 50 mg PO DAILY Levothyroxine Sodium [Synthroid] 150 mcg PO DAILY Clopidogrel [Plavix] 75 mg PO DAILY Glimepiride [Amaryl] 2 mg PO W/SUPPER metFORMIN HCL [Glucophage] 850 mg PO BID Rosuvastatin Calcium [Crestor] 5 mg PO HS Zinc 50 mg PO MOWEFR Discontinued Ibuprofen [Motrin] 800 mg PO BID PRN PRN Reason: Pain Discharge Medication List Clopidogrel [Plavix] 75 mg PO DAILY 11/25/20 [History] Levothyroxine Sodium [Synthroid] 150 mcg PO DAILY 11/25/20 [History] Losartan Potassium [Cozaar] 50 mg PO DAILY 11/25/20 [History] Glimepiride [Amaryl] 2 mg PO W/SUPPER 02/27/22 [History] Rosuvastatin Calcium [Crestor] 5 mg PO HS 02/27/22 [History] Zinc 50 mg PO MOWEFR 02/27/22 [History] metFORMIN HCL [Glucophage] 850 mg PO BID 02/27/22 [History] Acetaminophen Tab [Tylenol] 650 mg PO Q6HR PRN tab 03/01/22 [Rx] Ondansetron Odt [Zofran Odt] 4 mg PO Q8HR PRN #10 tab 03/01/22 [Rx] Pantoprazole Sodium [Protonix] 40 mg PO BID 30 Days #60 tab 03/01/22 [Rx] amLODIPine [Norvasc] 5 mg PO DAILY #30 tab 03/01/22 [Rx] Follow up Appointment(s)/Referral(s): Karel Campbell MD [STAFF PHYSICIAN] - 1 Week (Office staff will call you to schedule this appointment) Sumanth Darby DO [Primary Care Provider] - 1-2 days (office staff would like patient to call and schedule appointment) Patient Instructions/Handouts: Bradycardia (DC), Pacemaker (DC) Activity/Diet/Wound Care/Special Instructions: Activity Restrictions or Additional Instructions: Instructions following a heart rhythm device implant. 1. Keep dressing dry for 5 days. You margi cover the area with surrounding with a clean dressing/wrap prior to shower 2. The dressing can be removed in about 5 days in the Device Clinic at [facility]. Absorbable sutures were used to close the wound. 3. Avoid raising the left arm above the shoulder level. 4 week resection. 4. Avoid arm movements such as back scratching, rubbing the head or pulling on a cord. 4 week for striction. 5. Gentle range of motion movements of the shoulder, closest institution should be performed to avoid a frozen shoulder. (Pendulum exercises of the shoulder) 6. The opposite arm may be used freely. 7. Avoid driving for 7 days. 8. Avoid activities such as golfing, swimming, weed whacking, lifting more than 10 pounds of weight, bowling, and weight training/lifting (6 week restriction) 9. Being close to home induction cooktops and activities such as wood chopping with axe, pull ups, power lifting will always be a problem 10. Arm sling is only remind her not to raise arm above the head. You do not need to keep the arm completely immobilized. You're free to move the arm and use it in normal activities. In case of any problems, please call [facility] at [phone] Attention: Device Clinic Device clinic follow up in 5 days Follw up with primary packing attendant in 2-3 months Follow-up with primary care provider on discharge Continue taking medications as prescribed and follow-up with cardiology outpatient Continue heart healthy low-cholesterol diet Discharge Disposition: HOME SELF-CARE
== END 2022-03-01 17:30 | disposition home or self-care (01) | DRG 244 ==
LOC: EC 16:53 → 3SCARD 19:24
PROVIDERS: ADMIT Hospitalist; ATTEND Hospitalist
PROC: 02H63JZ Insertion of Pacemaker Lead into Right Atrium, Percutaneous Approach (ICD-10-PCS; 2022-02-28)
PROC: 02HK3JZ Insertion of Pacemaker Lead into Right Ventricle, Percutaneous Approach (ICD-10-PCS; 2022-02-28)
PROC: 0JH606Z Insertion of Pacemaker, Dual Chamber into Chest Subcutaneous Tissue and Fascia, Open Approach (ICD-10-PCS; principal; 2022-02-28 13:00)
DX: I44.2 Atrioventricular block, complete (principal); E03.9 Hypothyroidism, unspecified; E11.9 Type 2 diabetes mellitus without complications; E78.5 Hyperlipidemia, unspecified; I10 Essential (primary) hypertension; I35.0 Nonrheumatic aortic (valve) stenosis; Z79.02 Long term (current) use of antithrombotics/antiplatelets; Z79.1 Long term (current) use of non-steroidal anti-inflammatories (NSAID); Z79.82 Long term (current) use of aspirin; Z79.84 Long term (current) use of oral hypoglycemic drugs; Z79.890 Hormone replacement therapy; Z79.899 Other long term (current) drug therapy; Z86.73 Personal history of transient ischemic attack (TIA), and cerebral infarction without residual deficits; Z87.891 Personal history of nicotine dependence; Z96.612 Presence of left artificial shoulder joint
CPT/HCPCS: 33208; 36415; 71045; 71046; 80053; 80061; 83735; 84443; 84484; 85025; 85610; 85730; 93005; 93306; 94760; 96374; 99285

== ENCOUNTER → 2022-04-14 | Outpatient (CLI) | payer MEDICARE ==
[2022-04-14 22:31] LABS: Basophils # (A) 0.07 X 10*3/uL (0.00-0.10); Basophils % (A) 0.8 %; Eosinophils # (A) 0.35 X 10*3/uL (0.04-0.35); HCT 41.3 % (37.2-46.3); HGB 12.9 g/dL (12.0-15.0); Immature Grans, Automated 0.3 %; Lymphocytes # (A) 1.88 X 10*3/uL (0.90-5.00); Lymphocytes % (A) 21.3 %; MCH 28.8 pg (27.0-32.0); MCHC 31.2 g/dL (32.0-37.0); MCV 92.2 fL (80.0-97.0); Mean Platelet Volume 11.1 fL (9.5-12.2); Monocytes # (A) 0.81 X 10*3/uL (0.20-1.00); Monocytes % (A) 9.2 %; NRBC Per 100 WBC 0 /100 WBCS (0.0-0.0); Neutrophils # (A) 5.68 X 10*3/uL (1.80-7.70); Neutrophils % (A) 64.4 %; Platelet Count 157 X 10*3/uL (140-440); RBC 4.48 X 10*6/uL (4.10-5.20); RDW 12.7 % (11.5-14.5); WBC 8.82 X 10*3/uL (4.50-10.00)
== END | disposition home or self-care (01) ==
LOC: LABWHC1 14:48
PROVIDERS: ATTEND Nurse Practitioner
DX: L08.9 Local infection of the skin and subcutaneous tissue, unspecified (principal)
CPT/HCPCS: 36415; 85025

== ENCOUNTER → 2022-07-26 | Outpatient (CLI) | payer MEDICARE ==
[2022-07-22 18:18] LABS: African American GFR (CKD) 104.7 (60.0-200.0); Albumin 4.2 g/dL (3.8-4.9); Albumin/Globulin Ratio 1.47 (1.60-3.17); Anion Gap 12.3 mmol/L (10.00-18.00); BUN/Creat Ratio 31.68 Ratio (12.00-20.00); Blood Urea Nitrogen 17.9 mg/dL (9.0-27.0); Calcium 9.4 mg/dL (8.7-10.3); Carbon Dioxide 23.9 mmol/L (20.0-27.5); Globulin 2.9 g/dL (1.6-3.3); Non-African American GFR(CKD) 90.3 (60.0-200.0); Potassium 4.4 mmol/L (3.5-5.5); Total Bilirubin 0.5 mg/dL (0.30-1.20); Total Protein 7.1 g/dL (6.2-8.2)
[2022-07-22 18:34] LABS: Basophils # (A) 0.06 X 10*3/uL (0.00-0.10); Basophils % (A) 0.9 %; Eosinophils # (A) 0.23 X 10*3/uL (0.04-0.35); Eosinophils % (A) 3.6 %; HCT 42.2 % (37.2-46.3); HGB 13.7 g/dL (12.0-15.0); Immature Grans, Automated 0.3 %; Lymphocytes # (A) 1.28 X 10*3/uL (0.90-5.00); Lymphocytes % (A) 19.9 %; MCH 28.7 pg (27.0-32.0); MCHC 32.5 g/dL (32.0-37.0); MCV 88.3 fL (80.0-97.0); Mean Platelet Volume 11.2 fL (9.5-12.2); Monocytes # (A) 0.59 X 10*3/uL (0.20-1.00); Monocytes % (A) 9.2 %; NRBC Per 100 WBC 0 /100 WBCS (0.0-0.0); Neutrophils # (A) 4.24 X 10*3/uL (1.80-7.70); Neutrophils % (A) 66.1 %; Platelet Count 144 X 10*3/uL (140-440); RBC 4.78 X 10*6/uL (4.10-5.20); WBC 6.42 X 10*3/uL (4.50-10.00)
--- NOTE | 2022-07-26 12:18 | MM ---
Reason for Exam: Screening (asymptomatic). Last screening mammogram was performed 12 month(s) ago. Patient History: Menarche at age 11. Patient has no children. Left ovary removed at age 75. Right ovary removed at age 75. Hysterectomy at age 75. Postmenopausal. Other cancer. Benign Excisional Biopsy on the left side. Mother had breast cancer, age 75. Risk Values: Lucy 5 year model risk: 4.5%. NCI Lifetime model risk: 8.9%. Prior Study Comparison: 06/18/2019 Bilateral Screening Mammogram, [facility]. 07/04/2020 Bilateral Screening Mammogram, [facility]. 07/22/2021 Bilateral Screening Mammogram, [facility]. Tissue Density: The breast tissue is heterogeneously dense. This may lower the sensitivity of mammography. Findings: Analyzed By CAD. There is no suspicious group of microcalcifications or new suspicious mass in either breast. Benign oil cyst calcifications. Area of asymmetric densities remain unchanged. No significant change from prior examination. Overall Assessment: Benign, BI-RAD 2 Management: Screening Mammogram of both breasts in 1 year. A clinical breast exam by your physician is recommended on an annual basis and results should be correlated with mammographic findings. Electronically signed and approved by: Bandar Ochoa D.O.
== END | disposition home or self-care (01) ==
LOC: RADMAMWWP 11:01
PROVIDERS: ATTEND Internal Medicine
DX: Z12.31 Encounter for screening mammogram for malignant neoplasm of breast (principal); Z80.3 Family history of malignant neoplasm of breast
CPT/HCPCS: 77063; 77067; 80053; 83036; 85025

== ENCOUNTER → 2022-11-12 | Outpatient (CLI) | payer MEDICARE ==
[2022-11-12 14:13] LABS: Appearance,Urine Clear (Clear); Bilirubin,Urine Negative (Negative); Blood,Urine Negative (Negative); Color,Urine Yellow; Glucose,Urine (UA) Negative (Negative); Ketones,Urine Negative (Negative); Leukocyte Esterase,Urine Negative (Negative); Nitrite,Urine Negative (Negative); PH, Urine 5.5 (5.0-8.0); Protein,Urine Trace (Negative); Specific Gravity,Urine 1.025 (1.001-1.035); Urobilinogen,Urine <2.0 mg/dL (<2.0)
[2022-11-12 19:10] LABS: Basophils # (A) 0.07 X 10*3/uL (0.00-0.10); Basophils % (A) 0.9 %; Eosinophils # (A) 0.28 X 10*3/uL (0.04-0.35); Eosinophils % (A) 3.6 %; HCT 44.1 % (37.2-46.3); HGB 13.9 g/dL (12.0-15.0); Immature Grans, Automated 0.3 %; Lymphocytes # (A) 1.63 X 10*3/uL (0.90-5.00); Lymphocytes % (A) 20.9 %; MCH 28.5 pg (27.0-32.0); MCHC 31.5 g/dL (32.0-37.0); MCV 90.6 fL (80.0-97.0); Mean Platelet Volume 11.6 fL (9.5-12.2); Monocytes # (A) 0.67 X 10*3/uL (0.20-1.00); Monocytes % (A) 8.6 %; NRBC Per 100 WBC 0 /100 WBCS (0.0-0.0); Neutrophils # (A) 5.12 X 10*3/uL (1.80-7.70); Neutrophils % (A) 65.7 %; Platelet Count 158 X 10*3/uL (140-440); RBC 4.87 X 10*6/uL (4.10-5.20); RDW 13.3 % (11.5-14.5); WBC 7.79 X 10*3/uL (4.50-10.00)
[2022-11-12 20:04] LABS: ALT 17 U/L (8-44); AST 20 U/L (13-35); African American GFR (CKD) 105.5 (60.0-200.0); Albumin 4.3 g/dL (3.8-4.9); Albumin/Globulin Ratio 1.56 (1.60-3.17); Alkaline Phosphatase 108 U/L (41-126); BUN/Creat Ratio 32.79 Ratio (12.00-20.00); Blood Urea Nitrogen 18.1 mg/dL (9.0-27.0); Calcium 9.3 mg/dL (8.7-10.3); Carbon Dioxide 23.7 mmol/L (20.0-27.5); Chloride 103 mmol/L (96-109); Chol/HDL Ratio 2.82 Ratio; Globulin 2.8 g/dL (1.6-3.3); Glucose 199 mg/dL (70-110); LDL Cholesterol,Calculated 84.1 mg/dL (0.0-131.0); Potassium 4.4 mmol/L (3.5-5.5); Sodium 141 mmol/L (135-145); Total Protein 7.1 g/dL (6.2-8.2)
[2022-11-12 20:38] LABS: HCG,Quantitative Serum 1.8 (0.0-6.0)
== END | disposition home or self-care (01) ==
LOC: LABWHC1 11:09
PROVIDERS: ATTEND Internal Medicine
DX: E03.8 Other specified hypothyroidism (principal); E11.65 Type 2 diabetes mellitus with hyperglycemia; D50.9 Iron deficiency anemia, unspecified; E55.9 Vitamin D deficiency, unspecified; E78.3 Hyperchylomicronemia
CPT/HCPCS: 36415; 80053; 80061; 81003; 82043; 82306; 82570; 82607; 84439; 84443; 84481; 84702; 85025; 87086

== ENCOUNTER → 2022-11-12 | Outpatient (CLI) | payer MEDICARE ==
--- NOTE | 2022-11-12 12:31 | XR ---
EXAMINATION TYPE: XR chest 2V DATE OF EXAM: 11/12/2022 COMPARISON: 03/01/2022 HISTORY: Pneumonia. Technologist note mentions patient has been sick for 2-3 weeks. TECHNIQUE: Frontal and lateral views of the chest are obtained. FINDINGS: The cardiomediastinal silhouette is unremarkable. Generator projecting over the left chest with leads in the right atrium and right ventricle. New from prior is an aortic valve stent. The herber gs are clear. Bilateral shoulder arthroplasties. Multilevel degenerative changes in the spine. No acu te osseous abnormalities. IMPRESSION: No acute cardiopulmonary process.
== END | disposition home or self-care (01) ==
LOC: RADXRMAIN 11:56
PROVIDERS: ATTEND Internal Medicine
DX: J18.9 Pneumonia, unspecified organism (principal)
CPT/HCPCS: 71046

== ENCOUNTER → 2023-02-22 | Outpatient (CLI) | payer MEDICARE ==
[2023-02-22 15:32] LABS: Basophils # (A) 0.06 X 10*3/uL (0.00-0.10); Basophils % (A) 0.7 %; Eosinophils # (A) 0.26 X 10*3/uL (0.04-0.35); Eosinophils % (A) 2.9 %; HCT 44.7 % (37.2-46.3); HGB 14.1 g/dL (12.0-15.0); Immature Grans, Automated 0.3 %; Lymphocytes % (A) 22.7 %; MCH 28.2 pg (27.0-32.0); MCHC 31.5 g/dL (32.0-37.0); MCV 89.4 fL (80.0-97.0); Monocytes # (A) 0.69 X 10*3/uL (0.20-1.00); Monocytes % (A) 7.8 %; NRBC Per 100 WBC 0 /100 WBCS (0.0-0.0); Neutrophils # (A) 5.78 X 10*3/uL (1.80-7.70); Neutrophils % (A) 65.6 %; Platelet Count 167 X 10*3/uL (140-440); RDW 13.6 % (11.5-14.5); WBC 8.82 X 10*3/uL (4.50-10.00)
[2023-02-22 15:49] LABS: African American GFR (CKD) 102.6 (60.0-200.0); Albumin 4.1 g/dL (3.8-4.9); Albumin/Globulin Ratio 1.32 (1.60-3.17); Anion Gap 11.8 mmol/L (10.00-18.00); BUN/Creat Ratio 24.33 Ratio (12.00-20.00); Blood Urea Nitrogen 14.6 mg/dL (9.0-27.0); Calcium 9.4 mg/dL (8.7-10.3); Carbon Dioxide 25.2 mmol/L (20.0-27.5); Globulin 3.1 g/dL (1.6-3.3); Non-African American GFR(CKD) 88.5 (60.0-200.0); Potassium 4.3 mmol/L (3.5-5.5); Total Bilirubin 0.6 mg/dL (0.30-1.20); Total Protein 7.2 g/dL (6.2-8.2)
== END | disposition home or self-care (01) ==
LOC: LABWHC1 12:22
PROVIDERS: ATTEND Internal Medicine
DX: E11.65 Type 2 diabetes mellitus with hyperglycemia (principal); I48.91 Unspecified atrial fibrillation
CPT/HCPCS: 36415; 80053; 83036; 85025

== ENCOUNTER → 2023-07-28 | Outpatient (CLI) | payer MEDICARE ==
--- NOTE | 2023-07-28 22:25 | BD ---
EXAMINATION TYPE: Axial Bone Density DATE OF EXAM: 07/28/2023 CLINICAL HISTORY: 78 years old Female. ICD-10 CODE: M81.8 Osteoporosis Height: 62in Weight: 211lb FRAX RISK QUESTIONS: Family History (Parent hip fracture): yes History of Fracture in Adulthood: yes Secondary Osteoporosis: RISK FACTORS HISTORY OF: Family History of Osteoporosis: unknown Active: yes Postmenopausal woman: yes Lost more than 2 inches in height since high school: yes MEDICATIONS: Thyroid Medications: Which medication: levoxyl How Lon+ years Additional Medications: diabetic meds, bp meds, vitamin d Additional History: Type II diabetic, mario ankle fx's EXAM MEASUREMENTS: Bone mineral densitometry was performed using the [email or web address] System. Bone mineral density as measured about the Lumbar spine is: ----- L1-L4(G/cm2): 1.371 T Score Values are as follows: ----- L1: 0.1 ----- L2: 1.8 ----- L3: 1.8 ----- L4: 2.5 ----- L1-L4: 1.6 Z Score Values are as follows: ----- L1: 0.9 ----- L2: 2.5 ----- L3: 2.6 ----- L4: 3.2 ----- L1-L4: 2.4 Bone mineral density has: Increased 1% since study of: 05-11-2017 Bone mineral density about the R hip (g/cm2): 1.056 Bone mineral density about the L hip (g/cm2): 0.995 T Score values are as follows: -----R Neck: -0.4 -----L Neck: -1.1 -----R Total: 0.4 -----L Total: -0.1 Z Score values are as follows: -----R Neck: 1.0 -----L Neck: 0.3 -----R Total: 1.5 -----L Total: 1.0 Bone mineral density has: Increased 7.4% since study of: 05-11-2017 FRAX%s: The graph provided illustrates a 14.6% chance for a major osteoporotic fx and a 2.2% chance f or the hips probability for fx in 10 years time. IMPRESSION: Osteopenia (T Score between -2.5 and -1). There is slightly increased risk of fracture and the patient may be considered for treatment. Re-Screen 2-5 years. NOTE: T-SCORE=SD OF THE YOUNG ADULT MEAN.
--- NOTE | 2023-07-29 22:57 | MM ---
Reason for Exam: Screening (asymptomatic). Last screening mammogram was performed 12 month(s) ago. Patient History: Menarche at age 11. Patient has no children. Left ovary removed at age 75. Right ovary removed at age 75. Hysterectomy at age 75. Postmenopausal. Other cancer. Benign Excisional Biopsy on the left side. Mother had breast cancer, age 75. Risk Values: Lucy 5 year model risk: 4.4%. NCI Lifetime model risk: 8.4%. Prior Study Comparison: 07/04/2020 Bilateral Screening Mammogram, [facility]. 07/22/2021 Bilateral Screening Mammogram, [facility]. 07/26/2022 Bilateral MG 3D screening mammo w/cad, [facility]. Tissue Density: The breast tissue is heterogeneously dense. This may lower the sensitivity of mammography. Findings: Analyzed By CAD. Chronic nodularity medially on the right. Unchanged central asymmetric density posteriorly located on the left. Additional generator device projecting at the left pectoralis major. There is no suspicious group of microcalcifications or new suspicious mass in either breast. Overall Assessment: Benign, BI-RAD 2 Management: Screening Mammogram of both breasts in 1 year. See note below in regards to patient's increased five-year Lucy score. Patient should continue monthly self-breast exams. A clinical breast exam by your physician is recommended on an annual basis. This exam should not preclude additional follow-up of suspicious palpable abnormalities. Note on Lucy scores and lifetime risk: 1. A Lucy score greater than 3% is considered moderate risk. If this is the case, consider specialist referral to assess eligibility for a risk reducing agent. 2. If overall lifetime risk for the development of breast cancer is 20% or higher, the patient may qualify for future screening with alternating mammogram and breast MRI. Electronically signed and approved by: Diego Adams M.D. Radiologist
== END | disposition home or self-care (01) ==
LOC: RADMAMWWP 16:12
PROVIDERS: ATTEND Internal Medicine
DX: Z12.31 Encounter for screening mammogram for malignant neoplasm of breast (principal); M85.852 Other specified disorders of bone density and structure, left thigh; M85.851 Other specified disorders of bone density and structure, right thigh; M81.8 Other osteoporosis without current pathological fracture; Z78.0 Asymptomatic menopausal state; Z80.3 Family history of malignant neoplasm of breast
CPT/HCPCS: 77063; 77067; 77080

== ENCOUNTER → 2023-09-16 | Outpatient (CLI) | payer MEDICARE | END | disposition home or self-care (01) | LOC: LABWHC1 08:42 | PROVIDERS: ATTEND Internal Medicine | DX: Z53.9 Procedure and treatment not carried out, unspecified reason (principal) ==

== ENCOUNTER 2023-09-19 15:37 | Emergency (ER) | payer MEDICARE ==
[2023-09-19 16:04] VITALS: TEMP 98.4
[2023-09-19] MEDS ORDERED: SODIUM CHLORIDE 0.9% 1,000 ML IV STA (16:18)
[2023-09-19] MEDS ORDERED: ONDANSETRON 4 MG/2 ML VIAL IVP STA (16:18)
[2023-09-19] MEDS ORDERED: FAMOTIDINE 20 MG/2 ML VIAL IV STA (16:19)
[2023-09-19] MEDS ORDERED: HYDROmorphone 0.5 MG/0.5 ML SYRINGE IVP STA ×2 (16:19→20:33)
--- NOTE | 2023-09-19 16:27 | ED ---
General Adult HPI - General Chief complaint: Abdominal Pain Stated complaint: abd pain Time Seen by Provider: 09/19/23 16:00 Source: patient, RN notes reviewed Mode of arrival: ambulatory Limitations: no limitations - History of Present Illness Initial comments: Patient is a pleasant 78-year-old female presenting to emergency department with concerns with abdominal discomfort. Onset of symptoms was around 3 or 4 days ago. Patient had similar symptoms around 6 months ago however unclear why. Discomfort has slowly steadily worsened. Discomfort is mostly mid abdomen. Patient has had nausea with dry heaves. Patient has had maybe some minimal con stipation and diarrhea. Patient does have some lower discomfort as well. Patient is scheduled for colonoscopy in the month secondary to symptoms 6 months ago. No fever. - Related Data Home Medications Medication Instructions Recorded Confirmed Levothyroxine Sodium [Synthroid] 150 mcg PO DAILY 11/25/20 09/19/23 Losartan Potassium [Cozaar] 50 mg PO DAILY 11/25/20 09/19/23 Zinc 50 mg PO MOWEFR 02/27/22 09/19/23 metFORMIN HCL [Glucophage] 850 mg PO HS 02/27/22 09/19/23 Apixaban [Eliquis] 5 mg PO BID 09/19/23 09/19/23 Cholecalciferol [Vitamin D3 (25 25 mcg PO DAILY 09/19/23 09/19/23 Mcg = 1000 Iu)] Glimepiride [Amaryl] 4 mg PO HS 09/19/23 09/19/23 Insulin Degludec [Tresiba 30 units SQ DAILY 09/19/23 09/19/23 Flextouch U-100 Pen] Ipratropium [place] 0.06%Nasal 1 spray EA NOSTRIL DAILY 09/19/23 09/19/23 [Atrovent Nasal 0.06%] Rosuvastatin [Crestor] 10 mg PO HS 09/19/23 09/19/23 Previous Rx's Medication Instructions Recorded Amoxic-Pot Clav 875-125Mg 1 tab PO BID 1 Days #20 tab 09/19/23 [Augmentin 875-125] Allergies Allergy/AdvReac Type Severity Reaction Status Date / Time codeine Allergy Nausea Verified 09/19/23 18:11 hydrocodone [From [place]] Allergy Rash/Hives Verified 09/19/23 18:11 Review of Systems ROS Statement: Those systems with pertinent positive or pertinent negative responses have been documented in the HPI. ROS Other: All systems not noted in ROS Statement are negative. Constitutional: Denies: fever Eyes: Denies: eye pain ENT: Denies: ear pain Respiratory: Denies: cough Cardiovascular: Denies: chest pain Endocrine: Denies: fatigue Gastrointestinal: Reports: as per HPI, abdominal pain, nausea Genitourinary: Denies: urgency Musculoskeletal: Denies: back pain Skin: Denies: rash Neurological: Denies: weakness Past Medical History Past Medical History: CVA/TIA, Diabetes Mellitus, Hyperlipidemia, Hypertension, Thyroid Disorder Additional Past Medical History / Comment(s): moderate stenosis of aortic valve. History of Any Multi-Drug Resistant Organisms: None Reported Past Surgical History: Hysterectomy, Joint Replacement, Orthopedic Surgery Additional Past Surgical History / Comment(s): bilateral shoulder replacements, bilateral knees, caratedectomy. Past Anesthesia/Blood Transfusion Reactions: No Reported Reaction Past Psychological History: No Psychological Hx Reported Smoking Status: Former smoker Past Alcohol Use History: Occasional Past Drug Use History: None Reported General Exam Limitations: no limitations General appearance: alert, in no apparent distress Head exam: Present: atraumatic, normocephalic Eye exam: Present: normal appearance Neck exam: Present: normal inspection Respiratory exam: Present: normal lung sounds bilaterally Cardiovascular Exam: Present: regular rate, normal rhythm Expanded Peripheral pulses: 2+: Dorsalis Pedis (R), Dorsalis Pedis (L) GI/Abdominal exam: Present: soft, tenderness (Moderate mid abdominal and epigastric tenderness). Absent: distended Extremities exam: Present: normal inspection Back exam: Present: normal inspection Neurological exam: Present: alert Psychiatric exam: Present: normal affect, normal mood Skin exam: Present: normal color Course Vital Signs 09/19/23 09/19/23 09/19/23 15:53 17:00 18:00 Temperature 98.4 F Pulse Rate 79 74 78 Respiratory 17 18 18 Rate Blood Pressure 209/103 157/68 148/82 O2 Sat by Pulse 99 99 98 Oximetry 09/19/23 20:29 Temperature Pulse Rate 70 Respiratory 18 Rate Blood Pressure 168/90 O2 Sat by Pulse 99 Oximetry EKG Findings - EKG Results: EKG: interpreted by ERMD (Paced rhythm. Left axis. Septal Q waves. White QRS complex. Nonspecific ST-T) Medical Decision Making - Medical Decision Making Was pt. sent in by a medical professional or institution (ELLA Bower, GIS SOFTWARE DEVELOPER, urgent care, hospital, or long term...) When possible be specific @ -No Did you speak to anyone other than the patient for history (EMS, parent, family, police, friend...)? What history was obtained from this source @ -No Did you review nursing and triage notes (agree or disagree)? Why? @ -I reviewed and agree with nursing and triage notes Were old charts reviewed (outside hosp., previous admission, EMS record, old EKG, old radiological studies, urgent care reports/EKG's, long term records)? Report findings @ -No old charts were reviewed Differential Diagnosis (chest pain, altered mental status, abdominal pain women, abdominal pain men, vaginal bleeding, weakness, fever, dyspnea, syncope, headache, dizziness, GI bleed, back pain, seizure, CVA, palpatations, mental he alth, musculoskeletal)? @ -Differential Abdominal Pain Women: Appendicitis, Cholecystitis, diverticulosis, ischemic bowel, pancreatitis, hepatitis, UTI, gastroenteritis, AAA, incarcerated hernia, bowel obstruction, constipation, inflammatory bowel, hepatitis, peptic ulcer disease, splenic infarction, perforated viscus, vulvitis, ovarian torsion, PID, kidney stone, placenta abruption, this is not meant to be an all-inclusive list EKG interpreted by me (3pts min.). @ -As above X-rays interpreted by me (1pt min.). @ -None done CT interpreted by me (1pt min.). @ -None done U/S interpreted by me (1pt. min.). @ -None done What testing was considered but not performed or refused? (CT, X-rays, U/S, labs)? Why? @ -None What meds were considered but not given or refused? Why? @ -None Did you discuss the management of the patient with other professionals (professionals i.e. ELLA Bwoer, GIS SOFTWARE DEVELOPER, lab, RT, psych nurse, social service coordinator, document specialist, teacher, network security officer, shoe caser)? Give summary @ -No Was smoking cessation discussed for >3mins.? @ -No Was critical care preformed (if so, how long)? @ -No Were there social determinants of health that impacted care today? How? (Homelessness, low income, unemployed, alcoholism, drug addiction, transportation, low edu. Level, literacy, decrease access to med. care, fdc, rehab)? @ -No Was there de-escalation of care discussed even if they declined (Discuss DNR or withdrawal of care, Hospice)? DNR status @ -No What co-morbidities impacted this encounter? (DM, HTN, Smoking, COPD, CAD, Cancer, CVA, ARF, Chemo, Hep., AIDS, mental health diagnosis, sleep apnea, morbid obesity)? @ -None Was patient admitted / discharged? Hospital course, mention meds given and route, prescriptions, significant lab abnormalities, going to OR and other pertinent info. @ -CT report reviewed. Patient symptoms are more consistent with diverticulitis rather than pancreatitis. No history of pancreatitis. No history of alcohol use. Patient reevaluated and resting comfortably in bed. Abdomen soft with minimal left lower quadrant tenderness. Discussion with patient regarding admission versus discharge. Patient refuses admission and states she does have an appointment with her primary care physician tomorrow. Jacquelyn avelar does request pain medicine and is receptive to Tylenol with codeine stating it only causes nausea the past. Patient will be prescribed antibiotics. Undiagnosed new problem with uncertain prognosis? @ -No Drug Therapy requiring intensive monitoring for toxicity (Heparin, Nitro, Insulin, Cardizem)? @ -No Were any procedures done? @ -No Diagnosis/symptom? @ -Diverticulitis Acute, or Chronic, or Acute on Chronic? @ -Acute Uncomplicated (without systemic symptoms) or Complicated (systemic symptoms)? @ -default Side effects of treatment? @ -No Exacerbation, Progression, or Severe Exacerbation? @ -No Poses a threat to life or bodily function? How? (Chest pain, [place], [place], pneumonia, PE, COPD, DKA, ARF, appy, cholecystitis, CVA, Diverticulitis, Homicidal, Suicidal, threat to staff... and all critical care pts) @ -No - Lab Data Result diagrams: 09/19/23 16:48 09/19/23 16:48 Lab Results 09/19/23 09/19/23 09/19/23 Range/Units 16:48 16:48 16:48 WBC 8.4 (3.8-10.6) k/uL RBC 5.25 (3.80-5.40) m/uL Hgb 15.4 (11.4-16.0) gm/dL Hct 46.1 H (34.0-46.0) % MCV 87.7 (80.0-100.0) fL MCH 29.2 (25.0-35.0) pg MCHC 33.3 (31.0-37.0) g/dL RDW 13.1 (11.5-15.5) % Plt Count 169 (150-450) k/uL MPV 8.8 Neutrophils % 69 % Lymphocytes % 18 % Monocytes % 7 % Eosinophils % 4 % Basophils % 0 % Neutrophils # 5.8 (1.3-7.7) k/uL Lymphocytes # 1.5 (1.0-4.8) k/uL Monocytes # 0.6 (0-1.0) k/uL Eosinophils # 0.3 (0-0.7) k/uL Basophils # 0.0 (0-0.2) k/uL PT 10.5 (10.0-12.5) sec INR 1.0 (<1.2) APTT 26.6 (22.0-30.0) sec Sodium (137-145) mmol/L Potassium (3.5-5.1) mmol/L Chloride (98-107) mmol/L Carbon Dioxide (22-30) mmol/L Anion Gap mmol/L BUN (7-17) mg/dL Creatinine (0.52-1.04) mg/dL Est GFR (CKD-EPI)AfAm (>60 ml/min/1.73 sqM) Est GFR (CKD-EPI)NonAf (>60 ml/min/1.73 sqM) Glucose (74-99) mg/dL Calcium (8.4-10.2) mg/dL Total Bilirubin (0.2-1.3) mg/dL AST (14-36) U/L ALT (4-34) U/L Alkaline Phosphatase (38-126) U/L Total Protein (6.3-8.2) g/dL Albumin (3.5-5.0) g/dL Amylase (30-110) U/L Lipase (23-300) U/L Urine Color Colorless Urine Appearance Clear (Clear) Urine pH 6.5 (5.0-8.0) Ur Specific [place] 1.005 (1.001-1.035) Urine Protein Negative (Negative) Urine Glucose (UA) Negative (Negative) Urine Ketones Negative (Negative) Urine Blood Negative (Negative) Urine Nitrite Negative (Negative) Urine Bilirubin Negative (Negative) Urine Urobilinogen <2.0 (<2.0) mg/dL Ur Leukocyte Esterase Negative (Negative) 09/19/23 Range/Units 16:48 WBC (3.8-10.6) k/uL RBC (3.80-5.40) m/uL Hgb (11.4-16.0) gm/dL Hct (34.0-46.0) % MCV (80.0-100.0) fL MCH (25.0-35.0) pg MCHC (31.0-37.0) g/dL RDW (11.5-15.5) % Plt Count (150-450) k/uL MPV Neutrophils % % Lymphocytes % % Monocytes % % Eosinophils % % Basophils % % Neutrophils # (1.3-7.7) k/uL Lymphocytes # (1.0-4.8) k/uL Monocytes # (0-1.0) k/uL Eosinophils # (0-0.7) k/uL Basophils # (0-0.2) k/uL PT (10.0-12.5) sec INR (<1.2) APTT (22.0-30.0) sec Sodium 134 L (137-145) mmol/L Potassium 5.6 H (3.5-5.1) mmol/L Chloride 102 (98-107) mmol/L Carbon Dioxide 21 L (22-30) mmol/L Anion Gap 11 mmol/L BUN 16 (7-17) mg/dL Creatinine 0.42 L (0.52-1.04) mg/dL Est GFR (CKD-EPI)AfAm >90 (>60 ml/min/1.73 sqM) Est GFR (CKD-EPI)NonAf >90 (>60 ml/min/1.73 sqM) Glucose 217 H (74-99) mg/dL Calcium 9.3 (8.4-10.2) mg/dL Total Bilirubin 1.6 H (0.2-1.3) mg/dL AST 48 H (14-36) U/L ALT 17 (4-34) U/L Alkaline Phosphatase 109 (38-126) U/L Total Protein 8.5 H (6.3-8.2) g/dL Albumin 4.6 (3.5-5.0) g/dL Amylase 83 (30-110) U/L Lipase 429 H (23-300) U/L Urine Color Urine Appearance (Clear) Urine pH (5.0-8.0) Ur Specific [place] (1.001-1.035) Urine Protein (Negative) Urine Glucose (UA) (Negative) Urine Ketones (Negative) Urine Blood (Negative) Urine Nitrite (Negative) Urine Bilirubin (Negative) Urine Urobilinogen (<2.0) mg/dL Ur Leukocyte Esterase (Negative) Disposition Clinical Impression: Diverticulitis Disposition: HOME SELF-CARE Condition: Stable Instructions (If sedation given, give patient instructions): Diverticulitis (ED), Pancreatitis (ED) Additional Instructions: Please do follow-up with your doctor tomorrow as planned. Return for increased pain, fever, not tolerating oral intake, worsening symptoms or any other concerns. Have your doctor review test done today and consider repeat testing. Prescription for antibiotics has been sent to pharmacy. Prescriptions: Amoxic-Pot Clav 875-125Mg [Augmentin 875-125] 1 tab PO BID 1 Days #20 tab Is patient prescribed a controlled substance at d/c from ED?: No Referrals: Nonstaff,Physician [REFERRING] - 1-2 days Pascual Cardenas MD [STAFF PHYSICIAN] - 1-2 days Time of Disposition: 20:34
[2023-09-19 17:18] LABS: Appearance,Urine Clear (Clear); Bilirubin,Urine Negative (Negative); Blood,Urine Negative (Negative); Color,Urine Colorless; Glucose,Urine (UA) Negative (Negative); Ketones,Urine Negative (Negative); Leukocyte Esterase,Urine Negative (Negative); Nitrite,Urine Negative (Negative); PH, Urine 6.5 (5.0-8.0); Protein,Urine Negative (Negative); Specific Gravity,Urine 1.005 (1.001-1.035); Urobilinogen,Urine <2.0 mg/dL (<2.0)
[2023-09-19 17:23] LABS: Basophils % (A) 0 %; Eosinophils # (A) 0.3 k/uL (0-0.7); Eosinophils % (A) 4 %; HCT 46.1 % (34.0-46.0); HGB 15.4 gm/dL (11.4-16.0); Lymphocytes # (A) 1.5 k/uL (1.0-4.8); Lymphocytes % (A) 18 %; MCH 29.2 pg (25.0-35.0); MCHC 33.3 g/dL (31.0-37.0); MCV 87.7 fL (80.0-100.0); Mean Platelet Volume 8.8; Monocytes # (A) 0.6 k/uL (0-1.0); Monocytes % (A) 7 %; Neutrophils # (A) 5.8 k/uL (1.3-7.7); Neutrophils % (A) 69 %; Platelet Count 169 k/uL (150-450); RBC 5.25 m/uL (3.80-5.40); RDW 13.1 % (11.5-15.5); WBC 8.4 k/uL (3.8-10.6)
[2023-09-19 17:50] LABS: ALT 17 U/L (4-34); AST 48 U/L (14-36); African American GFR (CKD) >90 (>60 ml/min/1.73 sqM); Albumin 4.6 g/dL (3.5-5.0); Alkaline Phosphatase 109 U/L (38-126); Amylase 83 U/L (30-110); Anion Gap 11 mmol/L; Blood Urea Nitrogen 16 mg/dL (7-17); Calcium 9.3 mg/dL (8.4-10.2); Carbon Dioxide 21 mmol/L (22-30); Chloride 102 mmol/L (98-107); Glucose 217 mg/dL (74-99); Lipase 429 U/L (23-300); Non-African American GFR(CKD) >90 (>60 ml/min/1.73 sqM); Sodium 134 mmol/L (137-145); Total Bilirubin 1.6 mg/dL (0.2-1.3); Total Protein 8.5 g/dL (6.3-8.2)
[2023-09-19 17:55] LABS: Partial Thromboplastin Time 26.6 sec (22.0-30.0); Prothrombin Time 10.5 sec (10.0-12.5)
[2023-09-19 17:59] LABS: Potassium 5.6 mmol/L (3.5-5.1)
[2023-09-19 18:56] VITALS: RESP 18
--- NOTE | 2023-09-19 20:23 | CT ---
EXAMINATION TYPE: CT abdomen pelvis w con DATE OF EXAM: 09/19/2023 COMPARISON: None INDICATION: abdominal pain x 4 days DLP: 1041.5 mGycm, Automated exposure control for dose reduction was used. CONTRAST: 100 mL of Isovue 300. Study performed without Oral Contrast TECHNIQUE: Axial images were obtained from above the diaphragm to the pubic rami in the axial plane a t 5 mm thick sections. Reconstructed images are reviewed on the computer in the coronal plane. FINDINGS: Limited CT sections are obtained the lung bases. The lung bases are clear. Cardiac valve surgery is evident. Coronary artery calcifications present. CT ABDOMEN: Liver: Normal Spleen: Normal Pancreas: Mildly atrophic. Some very subtle inflammatory change may be adjacent to the distal body an d tail of the pancreas. Correlate for mild pancreatitis. Correlate with laboratory results. Adrenal glands: The adrenal glands are normal. Gallbladder: Normal Kidneys: No masses are evident. No hydronephrosis is present. No cysts are present. There is a non obstructing renal stone in the posterior mid left kidney measuring 0.5 cm. Aorta: Vascular calcification is within the aorta. Inferior vena cava: Normal. CT PELVIS: Loops of bowel within the abdomen and pelvis are normal. This study is without oral contrast limi ting bowel evaluation. Diverticulosis without acute diverticulitis is within the sigmoid colon. Appendix: Normal as visualized. Urinary bladder: Normal. Genitourinary structures: Uterus and ovaries are not identified. Osseous structures: No suspicious lytic or sclerotic lesions. Facet degenerative changes are within t he lumbar spine. IMPRESSION: 1. There may be some subtle inflammatory change adjacent to the body and tail atrophic pancreas. Cor relate for acute pancreatitis. Suspected diverticulitis. 3. Nonobstructing left renal stone
[2023-09-19] MEDS ORDERED: ACET/COD 300 MG/30 MG STARTER PACK 6 TAB BTL PO STA (20:33)
[2023-09-19] MEDS ORDERED: ONDANSETRON 4 MG ODT STARTER PACK 2 TAB BTL PO STA (20:33)
[2023-09-19] MEDS ORDERED: AMOXIC-POT CLAV 875-125MG 1 EACH TAB PO STA (20:40)
[2023-09-19 21:05] VITALS: BP 136/72; PULSE 76
== END 2023-09-19 20:58 | disposition home or self-care (01) ==
LOC: EC 15:37
DX: K57.92 Diverticulitis of intestine, part unspecified, without perforation or abscess without bleeding (principal); N20.0 Calculus of kidney; E11.9 Type 2 diabetes mellitus without complications; I10 Essential (primary) hypertension; E78.5 Hyperlipidemia, unspecified; E07.9 Disorder of thyroid, unspecified; Z87.891 Personal history of nicotine dependence; Z86.73 Personal history of transient ischemic attack (TIA), and cerebral infarction without residual deficits; Z79.01 Long term (current) use of anticoagulants; Z79.84 Long term (current) use of oral hypoglycemic drugs; Z79.4 Long term (current) use of insulin; Z79.890 Hormone replacement therapy; Z79.899 Other long term (current) drug therapy; Z88.5 Allergy status to narcotic agent; Z88.8 Allergy status to other drugs, medicaments and biological substances
CPT/HCPCS: 99284; 96374; 96375 ×2; 96361 ×5; 36415; 93005; 80053; 82150; 83690; 85025; 85610; 85730; 81003; 74177; 96376; J2405; J3490; S0119; J1170; Q9967

== ENCOUNTER 2023-09-30 15:17 | Inpatient (IN) | payer MEDICARE ==
--- NOTE | 2023-09-30 16:38 | ED ---
Nausea/Vomiting/Diarrhea HPI - General Source: patient Mode of arrival: ambulatory Limitations: no limitations <Minna Cleary - Last Filed: 09/30/23 16:35> <Marek Amor - Last Filed: 09/30/23 22:02> - General Chief complaint: Nausea/Vomiting/Diarrhea Stated complaint: Nausea, vomitting Time Seen by Provider: 09/30/23 16:35 - History of Present Illness Initial comments: Patient is 78-year-old female presented ER with chief complaint of nausea/vomiting. Patient states going on for the past couple of days. Patient states she was seen here last week with similar complaints and sent home on antibiotics she states feels worse than she did before. (Minna Cleary) Patient is a 78-year-old female presents emergency Department complaining of nausea, vomiting, abdominal pain. Has been ongoing for last 8 days. Initially diagnosed diverticulitis and sent home with Augmentin however presents today for continued symptoms after completing the antibiotics. Denies any chest pain or s hortness of breath. Denies any fevers or chills. Has no urinary complaints. Presents for further evaluation at this time. Does have a history of prior hysterectomy repeat lab surgery. Patient's PCP recommended she obtain an ultrasound of her gallbladder which is also why she presents today. Previous Colonoscopy was over 10 years ago was unremarkable. Initially evaluated as a quick note. I evaluated the patient and she was placed in a room.Patient states she is having small but unsatisfactory his bowel movements and occasional flatus. (Marek Amor) - Related Data Home Medications Medication Instructions Recorded Confirmed Levothyroxine Sodium [Synthroid] 150 mcg PO DAILY 11/25/20 09/19/23 Losartan Potassium [Cozaar] 50 mg PO DAILY 11/25/20 09/19/23 Zinc 50 mg PO MOWEFR 02/27/22 09/19/23 metFORMIN HCL [Glucophage] 850 mg PO HS 02/27/22 09/19/23 Apixaban [Eliquis] 5 mg PO BID 09/19/23 09/19/23 Cholecalciferol [Vitamin D3 (25 25 mcg PO DAILY 09/19/23 09/19/23 Mcg = 1000 Iu)] Glimepiride [Amaryl] 4 mg PO HS 09/19/23 09/19/23 Insulin Degludec [Tresiba 30 units SQ DAILY 09/19/23 09/19/23 Flextouch U-100 Pen] Ipratropium Corder 0.06%Nasal 1 spray EA NOSTRIL DAILY 09/19/23 09/19/23 [Atrovent Nasal 0.06%] Rosuvastatin [Crestor] 10 mg PO HS 09/19/23 09/19/23 Insulin Lispro [humaLOG Kwikpen] See Protocol SQ TID-W/MEALS 09/30/23 09/30/23 cycloSPORINE 0.05% OPHTH SOLN 1 drop BOTH EYES DAILY 09/30/23 09/30/23 [Restasis] Previous Rx's Medication Instructions Recorded Amoxic-Pot Clav 875-125Mg 1 tab PO BID 1 Days #20 tab 09/19/23 [Augmentin 875-125] Allergies Allergy/AdvReac Type Severity Reaction Status Date / Time codeine Allergy Nausea Verified 09/30/23 21:38 hydrocodone [From [place]] Allergy Rash/Hives Verified 09/30/23 21:38 Review of Systems ROS Other: All systems not noted in ROS Statement are negative. <Minna Cleary - Last Filed: 09/30/23 16:35> ROS Other: All systems not noted in ROS Statement are negative. <Marek Amor - Last Filed: 09/30/23 22:02> ROS Statement: Those systems with pertinent positive or pertinent negative responses have been documented in the HPI. Review of Systems: CONST: Denies fever EYES: Denies blurry vision ENT: Denies nasal congestion C/V: Denies Chest pain RESP: Denies shortness of breath GI: Endorses abdominal pain : Denies dysuria SKIN: Denies rash. MSK: Denies joint pain. NEURO: Denies headache (Marek Amor) Past Medical History Past Medical History: CVA/TIA, Diabetes Mellitus, Hyperlipidemia, Hypertension, Thyroid Disorder Additional Past Medical History / Comment(s): moderate stenosis of aortic valve.Diverticulosis History of Any Multi-Drug Resistant Organisms: None Reported Past Surgical History: Hysterectomy, Joint Replacement, Orthopedic Surgery Additional Past Surgical History / Comment(s): bilateral shoulder replacements, bilateral knees, caratedectomy. Past Anesthesia/Blood Transfusion Reactions: No Reported Reaction Past Psychological History: No Psychological Hx Reported Smoking Status: Former smoker Past Alcohol Use History: Occasional Past Drug Use History: None Reported <Minna Cleary - Last Filed: 09/30/23 16:35> General Exam Limitations: no limitations <Minna Cleary - Last Filed: 09/30/23 16:35> <Marek Amor - Last Filed: 09/30/23 22:02> - General Exam Comments Initial Comments: Visual Physical Exam Vital signs reviewed General: Well-appearing, nontoxic, no acute distress. Head: Normocephalic, atraumatic Eyes: PERRLA, EOMI ENT: Airway patent Chest: Nonlabored breathing Skin: No visual rash, normal skin tone Neuro: Alert and oriented 3 Musculoskeletal: No gross abnormalities (Minna Cleary) General: Appears in no acute distress. HEAD: Normal with no signs of head trauma. EYES: PERRLA, EOMI, conjunctiva normal, no discharge. ENT: Hearing grossly intact, normal oropharynx. RESPIRATORY: Clear breath sounds bilaterally. No wheezes, rales, or rhonchi. C/V: Regular rate and rhythm. S1 and S2 auscultated, no edema, peripheral pulses 2+ and intact throughout ABD: Abdomen is soft, nondistended. Tender to palpation in the epigastric and periumbilical region. No guarding. No rebound tenderness. No peritoneal signs. EXT: Normal range of motion, no obvious deformity SKIN: No rashes or lesions observed on exposed skin. NEURO: Alert and oriented x 4. (Marek Amor) Course Vital Signs 09/30/23 09/30/23 09/30/23 15:21 17:24 18:00 Temperature 98.6 F Pulse Rate 81 68 86 Respiratory 20 16 16 Rate Blood Pressure 148/90 148/90 140/60 O2 Sat by Pulse 96 98 98 Oximetry Medical Decision Making <Minna Cleary - Last Filed: 09/30/23 16:35> - Lab Data Result diagrams: 09/30/23 17:30 09/30/23 17:30 - EKG Data -: EKG Interpreted by Me <Marek Amor - Last Filed: 09/30/23 22:02> - Medical Decision Making I performed the quick note portion of the exam. Electronically signed by Minna Cleary PA-C (Minna Cleary) Was pt. sent in by a medical professional or institution ([facility], [facility], urgent care, hospital, or [facility]...) When possible be specific @ -No Did you speak to anyone other than the patient for history (EMS, parent, family, police, friend...)? What history was obtained from this source @ -No Did you review nursing and triage notes (agree or disagree)? Why? @ -I reviewed and agree with nursing and triage notes Were old charts reviewed (outside hosp., previous admission, EMS record, old EKG, old radiological studies, urgent care reports/EKG's, [facility] records)? Report findings @ -Old charts reviewed Differential Diagnosis (chest pain, altered mental status, abdominal pain women, abdominal pain men, vaginal bleeding, weakness, fever, dyspnea, syncope, headache, dizziness, GI bleed, back pain, seizure, CVA, palpatations, mental health, musculoskeletal)? @ -Differential Abdominal Pain Women: Appendicitis, Cholecystitis, diverticulosis, ischemic bowel, pancreatitis, hepatitis, UTI, gastroenteritis, AAA, incarcerated hernia, bowel obstruction, constipation, inflammatory bowel, hepatitis, peptic ulcer disease, splenic infarction, perforated viscus, vulvitis, ovarian torsion, PID, kidney stone, placenta abruption, this is not meant to be an all-inclusive list EKG interpreted by me (3pts min.). @ -As above X-rays interpreted by me (1pt min.). @ -None done CT interpreted by me (1pt min.). @ -CT abdomen and pelvis revealed a small bowel obstruction. U/S interpreted by me (1pt. min.). @ -Gallbladder ultrasound reveals no obvious hepatobiliary pathology. What testing was considered but not performed or refused? (CT, X-rays, U/S, labs)? Why? @ -None What meds were considered but not given or refused? Why? @ -None Did you discuss the management of the patient with other professionals (professionals i.e. [facility], [facility], lab, RT, psych nurse, manager social responsibility, photolithographer, teacher, school resource officer, nurse outreach case manager)? Give summary @ -Discussed with Dr. Singleton of on-call surgery who accepted the admission. Was in agreement with plan for antibiotics, nothing by mouth, NG tube. Was smoking cessation discussed for >3mins.? @ -No Was critical care preformed (if so, how long)? @ -No Were there social determinants of health that impacted care today? How? (Home lessness, low income, unemployed, alcoholism, drug addiction, transportation, low edu. Level, literacy, decrease access to med. care, care home, rehab)? @ -No Was there de-escalation of care discussed even if they declined (Discuss DNR or withdrawal of care, Hospice)? DNR status @ -No What co-morbidities impacted this encounter? (DM, HTN, Smoking, COPD, CAD, Cancer, CVA, ARF, Chemo, Hep., AIDS, mental health diagnosis, sleep apnea, morbid obesity)? @ -None Was patient admitted / discharged? Hospital course, mention meds given and route, prescriptions, significant lab abnormalities, going to OR and other pertinent info. @ -The patient's presentation and physical exam, presents with abdominal pain. We will obtain an abdominal workup. Requesting gallbladder ultrasound which will also be obtained. Exam relatively unremarkable. Vital signs within acceptable limits per she'll be treated with IV fluids, analgesia medications. She was in agreement with this plan. EKG unremarkable. Labs within acceptable limits. Long delay in obtaining CT imaging due to high demand but when I returned did reveal small bowel extraction likely secondary to ileitis with transition point at the distal ileum. Discussed this with the patient. She will be admitted under surgery. Discussed with Dr. Singleton who accepted the patient. Patient be started on IV Zosyn, NG tube will be placed, patient made nothing by mouth. I spoke with Dr. billie [facility] to accept the consult for medical management. Undiagnosed new problem with uncertain prognosis? @ -No Drug Therapy requiring intensive monitoring for toxicity (Heparin, Nitro, Insulin, Cardizem)? @ -No Were any procedures done? @ -No Diagnosis/symptom? @ -Small bowel obstruction Acute, or Chronic, or Acute on Chronic? @ -Acute Uncomplicated (without systemic symptoms) or Complicated (systemic symptoms)? @ -Complicated Side effects of treatment? @ -No Exacerbation, Progression, or Severe Exacerbation? @ -No Poses a threat to life or bodily function? How? (Chest pain, [place], [place], pneumonia, PE, COPD, DKA, ARF, appy, cholecystitis, CVA, Diverticulitis, Homicidal, Suicidal, threat to staff... and all critical care pts) @ -Yes (Marek Amor) - Lab Data Lab Results 11/17/23 11/17/23 11/17/23 Range/Units 17:10 17:10 17:30 WBC 10.4 (3.8-10.6) k/uL RBC 5.32 (3.80-5.40) m/uL Hgb 15.9 (11.4-16.0) gm/dL Hct 46.9 H (34.0-46.0) % MCV 88.1 (80.0-100.0) fL MCH 29.9 (25.0-35.0) pg MCHC 33.9 (31.0-37.0) g/dL RDW 13.1 (11.5-15.5) % Plt Count 156 (150-450) k/uL MPV 8.8 Neutrophils % 78 % Lymphocytes % 14 % Monocytes % 5 % Eosinophils % 1 % Basophils % 0 % Neutrophils # 8.1 H (1.3-7.7) k/uL Lymphocytes # 1.5 (1.0-4.8) k/uL Monocytes # 0.5 (0-1.0) k/uL Eosinophils # 0.1 (0-0.7) k/uL Basophils # 0.0 (0-0.2) k/uL Sodium (137-145) mmol/L Potassium (3.5-5.1) mmol/L Chloride (98-107) mmol/L Carbon Dioxide (22-30) mmol/L Anion Gap mmol/L BUN (7-17) mg/dL Creatinine (0.52-1.04) mg/dL Est GFR (CKD-EPI)AfAm (>60 ml/min/1.73 sqM) Est GFR (CKD-EPI)NonAf (>60 ml/min/1.73 sqM) Glucose (74-99) mg/dL Plasma Lactic Acid Abhijit (0.7-2.0) mmol/L Calcium (8.4-10.2) mg/dL Total Bilirubin (0.2-1.3) mg/dL AST (14-36) U/L ALT (4-34) U/L Alkaline Phosphatase (38-126) U/L Total Protein (6.3-8.2) g/dL Albumin (3.5-5.0) g/dL Amylase (30-110) U/L Lipase (23-300) U/L Urine Color Yellow Urine Appearance Cloudy H (Clear) Urine pH 7.0 (5.0-8.0) Ur Specific [place] 1.023 (1.001-1.035) Urine Protein 1+ H (Negative) Urine Glucose (UA) Negative (Negative) Urine Ketones Negative (Negative) Urine Blood Negative (Negative) Urine Nitrite Negative (Negative) Urine Bilirubin Negative (Negative) Urine Urobilinogen 2.0 (<2.0) mg/dL Ur Leukocyte Esterase Negative (Negative) Urine RBC <1 (0-5) /hpf Urine WBC 4 (0-5) /hpf Ur Squamous Epith Cells 11 H (0-4) /hpf Hyaline Casts 29 H (0-2) /lpf Urine Mucus Few H (None) /hpf Influenza Type A (PCR) Not Detected (Not Detectd) Influenza Type B (PCR) Not Detected (Not Detectd) RSV (PCR) Not Detected (Not Detectd) SARS-CoV-2 (PCR) Not Detected (Not Detectd) 09/30/23 09/30/23 Range/Units 17:30 17:30 WBC (3.8-10.6) k/uL RBC (3.80-5.40) m/uL Hgb (11.4-16.0) gm/dL Hct (34.0-46.0) % MCV (80.0-100.0) fL MCH (25.0-35.0) pg MCHC (31.0-37.0) g/dL RDW (11.5-15.5) % Plt Count (150-450) k/uL MPV Neutrophils % % Lymphocytes % % Monocytes % % Eosinophils % % Basophils % % Neutrophils # (1.3-7.7) k/uL Lymphocytes # (1.0-4.8) k/uL Monocytes # (0-1.0) k/uL Eosinophils # (0-0.7) k/uL Basophils # (0-0.2) k/uL Sodium 138 (137-145) mmol/L Potassium 5.3 H (3.5-5.1) mmol/L Chloride 95 L (98-107) mmol/L Carbon Dioxide 33 H (22-30) mmol/L Anion Gap 10 mmol/L BUN 22 H (7-17) mg/dL Creatinine 0.61 (0.52-1.04) mg/dL Est GFR (CKD-EPI)AfAm >90 (>60 ml/min/1.73 sqM) Est GFR (CKD-EPI)NonAf 88 (>60 ml/min/1.73 sqM) Glucose 186 H (74-99) mg/dL Plasma Lactic Acid Abhijit 1.6 (0.7-2.0) mmol/L Calcium 10.1 (8.4-10.2) mg/dL Total Bilirubin 1.1 (0.2-1.3) mg/dL AST 31 (14-36) U/L ALT 20 (4-34) U/L Alkaline Phosphatase 85 (38-126) U/L Total Protein 7.5 (6.3-8.2) g/dL Albumin 4.3 (3.5-5.0) g/dL Amylase 48 (30-110) U/L Lipase 46 (23-300) U/L Urine Color Urine Appearance (Clear) Urine pH (5.0-8.0) Ur Specific [place] (1.001-1.035) Urine Protein (Negative) Urine Glucose (UA) (Negative) Urine Ketones (Negative) Urine Blood (Negative) Urine Nitrite (Negative) Urine Bilirubin (Negative) Urine Urobilinogen (<2.0) mg/dL Ur Leukocyte Esterase (Negative) Urine RBC (0-5) /hpf Urine WBC (0-5) /hpf Ur Squamous Epith Cells (0-4) /hpf Hyaline Casts (0-2) /lpf Urine Mucus (None) /hpf Influenza Type A (PCR) (Not Detectd) Influenza Type B (PCR) (Not Detectd) RSV (PCR) (Not Detectd) SARS-CoV-2 (PCR) (Not Detectd) - EKG Data EKG Comments: 12-lead Electrocardiogram Interpretation Note EKG was reviewed and interpreted by myself. 12-lead ECG performed at 2008 is interpreted by me as revealing electronic ventricular pacemaker at a rate of 71 beats per minute. Left axis deviation. WA interval is 306 ms, QRS duration is 147 ms, QTc is 458 ms.. There were no ST or T wave abnormalities to suggest myocardial ischemia or injury. R wave progression across the precordium was satisfactory. By my interpretation this EKG is non-diagnostic for acute ischemia. (Marek Amor) Disposition <Stariha,Minna - Last Filed: 09/30/23 16:35> Time of Disposition: 21:36 <Marek Amor - Last Filed: 09/30/23 22:02> Clinical Impression: Small bowel obstruction Disposition: ADMITTED IP TO THIS HOSP Condition: Stable Referrals: Sumanth Darby DO [Primary Care Provider] - 1-2 days
[2023-09-30 17:52] LABS: Appearance,Urine Cloudy (Clear); Bilirubin,Urine Negative (Negative); Blood,Urine Negative (Negative); Color,Urine Yellow; Glucose,Urine (UA) Negative (Negative); Hyaline Casts,Urine 29 /lpf (0-2); Ketones,Urine Negative (Negative); Leukocyte Esterase,Urine Negative (Negative); Mucus,Urine Few /hpf; Nitrite,Urine Negative (Negative); Protein,Urine 1+ (Negative); RBC,Urine <1 /hpf (0-5); Specific Gravity,Urine 1.023 (1.001-1.035); Squamous Epithelial Cell,Urine 11 /hpf (0-4); WBC,Urine 4 /hpf (0-5)
[2023-09-30] MEDS ORDERED: MORPHINE SULFATE 2 MG/ML SYRINGE IM STA (18:45)
[2023-09-30] MEDS ORDERED: ONDANSETRON 4 MG/2 ML VIAL IVP STA (18:45)
[2023-09-30] MEDS ORDERED: SODIUM CHLORIDE 0.9% 500 ML 500 ML IV STA (18:46)
[2023-09-30 18:49] LABS: Basophils % (A) 0 %; Eosinophils # (A) 0.1 k/uL (0-0.7); Eosinophils % (A) 1 %; HCT 46.9 % (34.0-46.0); HGB 15.9 gm/dL (11.4-16.0); Lymphocytes # (A) 1.5 k/uL (1.0-4.8); Lymphocytes % (A) 14 %; MCH 29.9 pg (25.0-35.0); MCHC 33.9 g/dL (31.0-37.0); MCV 88.1 fL (80.0-100.0); Mean Platelet Volume 8.8; Monocytes # (A) 0.5 k/uL (0-1.0); Monocytes % (A) 5 %; Neutrophils # (A) 8.1 k/uL (1.3-7.7); Neutrophils % (A) 78 %; Platelet Count 156 k/uL (150-450); RBC 5.32 m/uL (3.80-5.40); RDW 13.1 % (11.5-15.5); WBC 10.4 k/uL (3.8-10.6)
[2023-09-30 19:31] LABS: ALT 20 U/L (4-34); AST 31 U/L (14-36); African American GFR (CKD) >90 (>60 ml/min/1.73 sqM); Albumin 4.3 g/dL (3.5-5.0); Alkaline Phosphatase 85 U/L (38-126); Amylase 48 U/L (30-110); Anion Gap 10 mmol/L; Blood Urea Nitrogen 22 mg/dL (7-17); Calcium 10.1 mg/dL (8.4-10.2); Carbon Dioxide 33 mmol/L (22-30); Chloride 95 mmol/L (98-107); Glucose 186 mg/dL (74-99); Lipase 46 U/L (23-300); Non-African American GFR(CKD) 88 (>60 ml/min/1.73 sqM); Sodium 138 mmol/L (137-145); Total Bilirubin 1.1 mg/dL (0.2-1.3); Total Protein 7.5 g/dL (6.3-8.2)
[2023-09-30 19:32] LABS: Potassium 5.3 mmol/L (3.5-5.1)
--- NOTE | 2023-09-30 20:12 | US ---
EXAMINATION TYPE: US gallbladder DATE OF EXAM: 09/30/2023 COMPARISON: CT 09/19/2023r CLINICAL INDICATION: Female, 78 years old with history of abd pain; N/V/D TECHNIQUE: Multiple sonographic images of the right upper quadrant are obtained. FINDINGS: EXAM MEASUREMENTS: Liver Length: 16.4 cm Gallbladder Wall: 0.2 cm CBD: 0.6 cm Right Kidney: 10.3 x 4.3 x 4.4 cm Pancreas: obscured by overlying midline bowel gas Liver: wnl Gallbladder: wnl Evidence for sonographic Phoenix's sign: no CBD: borderline dilated Right Kidney: wnl IMPRESSION: Suboptimal visualization of the pancreas. No gallstones or gallbladder inflammation apparent by ultra sound. The bile duct is borderline dilated at 6 mm which is acceptable given patient's age.
[2023-09-30] MEDS ORDERED: MORPHINE SULFATE 2 MG/ML SYRINGE IVP STA (20:22)
--- NOTE | 2023-09-30 21:05 | CT ---
EXAMINATION TYPE: CT abdomen pelvis w con DATE OF EXAM: 09/30/2023 COMPARISON: 09/19/23 HISTORY: 78 year old female Pt has been having abd pain for 8 days. Pt continues to feel sick and is now vomiting. TECHNIQUE: Contiguous axial scanning of the abdomen and pelvis following administration of 100 ml Iso [place] 300 IV contrast. Delayed images through the kidneys and coronal/sagittal reconstructions perform ed. CT DLP: 1152.1 mGycm Automated exposure control for dose reduction was used. FINDINGS: Borderline heart size without pericardial effusion. Pacer leads. Ascending aortic stent graft. Str bernice bibasilar scarring/atelectasis. No pleural effusion. Liver borderline enlarged at 17.2 cm. There is a tiny 3 mm hypodensity central right liver lobe too s mall for accurate CT characterization, likely a tiny cyst. No biliary ductal dilatation. Portal venou s system is patent. Gallbladder, adrenal glands, spleen, atrophic pancreas show no gross anomaly. Perinephric renal contr ast medium excreted through the renal collecting systems. Moderate atherosclerotic calcifications throughout the abdominal aorta without aneurysm. Prominent fluid distending the stomach. There are dilated small bowel loops with equalization of intraluminal content. Associated mild mesent shannon edema. Dilatation measures up to 3.5 cm. Possible transition point right lower quadrant, coronal image 202 and axial image 58. Small bowel here shows circumferential wall thickening with mucosal hy peremia distally to the terminal ileum. Normal appendix. There is generalized colonic diverticulosis, fairly extensive within the sigmoid colon. No definite p ericolonic inflammatory change. Bladder is collapsed and contains some excreting contrast. Neither ovary clearly identified. No abnor mal fluid collection in the pelvis or pelvic lymphadenopathy. Bones: Position the lower thoracic spine. Degenerated dextroconvex scoliosis lumbar spine. IMPRESSION: 1. HIGH-GRADE SMALL BOWEL OBSTRUCTION. SMALL BOWEL LOOPS ARE DILATED UP TO 3.5 CM. THERE IS REACTIVE MILD MESENTERIC EDEMA. 2. TRANSITION POINT AT THE RIGHT LOWER QUADRANT ILEUM WHERE THERE IS LONG SEGMENT MODERATE CIRCUMFERE NTIAL WALL THICKENING AND MUCOSAL HYPEREMIA DISTALLY TO THE LEVEL OF THE TERMINAL ILEUM. SMALL BOWEL OBSTRUCTION SECONDARY TO INFECTIOUS OR INFLAMMATORY ILEITIS IS SUGGESTED. 3. GENERALIZED COLONIC DIVERTICULOSIS, EXTENSIVE WITHIN THE SIGMOID COLON. NO CONVINCING FINDINGS OF ACUTE DIVERTICULITIS.
[2023-09-30] MEDS ORDERED: SODIUM CHLORIDE 0.9% 1,000 ML IV STA (21:34)
[2023-09-30] MEDS ORDERED: NALOXONE 0.4 MG/ML 1 ML VIAL IV PRN (21:35)
[2023-09-30] MEDS ORDERED: PANTOPRAZOLE 40 MG/10 ML VIAL IVP STA (21:37)
[2023-09-30] MEDS ORDERED: PIPERACILLIN-TAZOBACTAM 3.375 GM in SODIUM CHLORIDE 0.9% 100 ML IVPB STA (21:39)
[2023-09-30] MEDS ORDERED: DEXTROSE 50% SYRINGE 50 ML IVP PRN ×2 (22:13)
[2023-09-30] MEDS: MORPHINE SULFATE 4 MG/ML SYRINGE IV PRN (23:54)
--- NOTE | 2023-10-01 01:40 | XR ---
EXAM: XR Chest, 1 View CLINICAL HISTORY: ITS.REASON XR Reason: NG tube placement TECHNIQUE: Frontal view of the chest. COMPARISON: No relevant prior studies available. FINDINGS: Lungs: No consolidation. No overt edema. Pleural space: No pleural effusion. No pneumothorax. Heart: Unremarkable. No cardiomegaly. Tubes, lines and devices: Esophagogastric tube terminates within the gastric body. IMPRESSION: Esophagogastric tube terminates within the gastric body.
[2023-10-01] MEDS: MORPHINE SULFATE 4 MG/ML SYRINGE IV PRN ×2 (05:34→19:59)
[2023-10-01 05:55] LABS: Basophils % (A) 0 %; Eosinophils # (A) 0.1 k/uL (0-0.7); Eosinophils % (A) 1 %; HCT 46.1 % (34.0-46.0); HGB 14.8 gm/dL (11.4-16.0); Lymphocytes # (A) 1.6 k/uL (1.0-4.8); Lymphocytes % (A) 18 %; MCH 28.8 pg (25.0-35.0); MCHC 32.1 g/dL (31.0-37.0); MCV 89.9 fL (80.0-100.0); Mean Platelet Volume 8.1; Monocytes # (A) 0.6 k/uL (0-1.0); Monocytes % (A) 7 %; Neutrophils # (A) 6.5 k/uL (1.3-7.7); Neutrophils % (A) 72 %; Platelet Count 145 k/uL (150-450); RBC 5.13 m/uL (3.80-5.40); RDW 13.2 % (11.5-15.5); WBC 8.9 k/uL (3.8-10.6)
[2023-10-01 06:12] LABS: African American GFR (CKD) >90 (>60 ml/min/1.73 sqM); Anion Gap 10 mmol/L; Blood Urea Nitrogen 19 mg/dL (7-17); Calcium 9.2 mg/dL (8.4-10.2); Carbon Dioxide 28 mmol/L (22-30); Chloride 101 mmol/L (98-107); Glucose 150 mg/dL (74-99); Non-African American GFR(CKD) >90 (>60 ml/min/1.73 sqM); Potassium 4.6 mmol/L (3.5-5.1); Sodium 139 mmol/L (137-145)
[2023-10-01 06:27] LABS: Glucose,Whole Blood 143 mg/dL (70-110)
[2023-10-01] MEDS: INSULIN ASPART (NovoLOG) 100 UNIT/ML VIAL SQ SCH ×3 (06:55→17:12)
[2023-10-01] MEDS: PIPERACILLIN-TAZOBACTAM 3.375 GM in SODIUM CHLORIDE 0.9% 100 ML IVPB SCH ×2 (08:55→17:33)
[2023-10-01] MEDS: ONDANSETRON 4 MG/2 ML VIAL IVP PRN (09:11)
[2023-10-01] MEDS: APIXABAN 5 MG TAB PO SCH ×2 (10:02→19:58)
[2023-10-01] MEDS: LOSARTAN 50 MG TAB PO SCH (10:02)
[2023-10-01] MEDS: LEVOTHYROXINE 75 MCG TAB PO SCH (10:02)
[2023-10-01] MEDS ORDERED: ACETAMINOPHEN IV (For NPO) 1,000 MG in EMPTY BAG 1 BAG IVPB STA (10:51)
[2023-10-01] MEDS: BENZOCAINE/MENTHOL LOZENG 1 EACH LOZENGE MUCOUS MEM PRN ×2 (13:17→17:25)
[2023-10-01 13:31] LABS: Glucose,Whole Blood 138 mg/dL (70-110)
--- NOTE | 2023-10-01 14:17 | P.CONS ---
History of Present Illness - History of Present Illness This is a pleasant 78 years old female with past medical history of Atrial Fi brillation, CVA/TIA, Diabetes Mellitus, Hyperlipidemia, Hypertension, hypothyroidism, moderate stenosis of aortic valve.Diverticulosis, Pt has a pacemaker and also had a TAVR to the aortic valve, status post permanent pacemaker Patient presents because of abdominal pain of 2 days' duration associated with nausea vomiting. Patient states initially she had soft stool but then it was stopped for the last 3 days she doesn't have bowel movement. She denies chest pain or dyspnea. No urinary complaints. No headache dizziness weakness or numbness. Patient denies smoking or drinking alcohol. Patient hemodynamically stable, blood pressure 162/70. Labs reviewed, there were unremarkable CBC, BMP and liver enzymes. Elevated hemoglobin A1c 8.1%. 6 chest x-ray: No acute process Urine analysis is not suspicious of infection Viruses not detected, Influenza A and type B, RSV, SARS (coronavirus) are and detected CT of the abdomen and pelvis showing high-grade small bowel obstruction with dilatation about 3-5 cm with circumferential wall thickening of the terminal ileum. Extensive sigmoid diverticulosis without diverticulitis Patient currently is on Zosyn Social liquids this morning Review of Systems Review of systems CONSTITUTIONAL: No fever, no malaise, no fatigue. HEENT: No recent visual problems or hearing problems. Denied any sore throat. CARDIOVASCULAR: No orthopnea, PND, no palpitations, no syncope. PULMONARY: No shortness of breath, no cough, no hemoptysis. -GASTROINTESTINAL: as above NEUROLOGICAL: No headaches, no weakness, no numbness. HEMATOLOGICAL: Denies any bleeding or petechiae. GENITOURINARY: Denies any burning micturition, frequency, or urgency. MUSCULOSKELETAL/RHEUMATOLOGICAL: Denies any joint pain, swelling, or any muscle pain. ENDOCRINE: Denies any polyuria or polydipsia. Past Medical History Past Medical History: Atrial Fibrillation, CVA/TIA, Diabetes Mellitus, Hyperlipidemia, Hypertension, Thyroid Disorder Additional Past Medical History / Comment(s): moderate stenosis of aortic valve.Diverticulosis, Pt has a pacemaker and also had a TAVR to the aortic valve History of Any Multi-Drug Resistant Organisms: None Reported Past Surgical History: Hysterectomy, Joint Replacement, Orthopedic Surgery, Pacemaker Additional Past Surgical History / Comment(s): bilateral shoulder replacements, bilateral knees, caratedectomy. Past Anesthesia/Blood Transfusion Reactions: No Reported Reaction Type of Cardiac Device: Permanent Pacemaker Device Placement Date:: 02/2021 Past Psychological History: No Psychological Hx Reported Smoking Status: Former smoker Past Alcohol Use History: Occasional Past Drug Use History: None Reported Medications and Allergies Home Medications Medication Instructions Recorded Confirmed Type Levothyroxine Sodium [Synthroid] 150 mcg PO DAILY 11/25/20 09/30/23 History Losartan Potassium [Cozaar] 50 mg PO DAILY 11/25/20 09/30/23 History Zinc 50 mg PO MOWEFR 02/27/22 09/30/23 History metFORMIN HCL [Glucophage] 850 mg PO HS 02/27/22 09/30/23 History Amoxic-Pot Clav 875-125Mg 1 tab PO BID 1 Days #20 tab 09/19/23 09/30/23 Rx [Augmentin 875-125] Apixaban [Eliquis] 5 mg PO BID 09/19/23 09/30/23 History Cholecalciferol [Vitamin D3 (25 25 mcg PO DAILY 09/19/23 09/30/23 History Mcg = 1000 Iu)] Glimepiride [Amaryl] 4 mg PO HS 09/19/23 09/30/23 History Insulin Degludec [Tresiba 40 units SQ DAILY 09/19/23 09/30/23 History Flextouch U-100 Pen] Ipratropium [place] 0.06%Nasal 1 spr EA NOSTRIL DAILY 09/19/23 09/30/23 History [Atrovent Nasal 0.06%] Rosuvastatin [Crestor] 10 mg PO HS 09/19/23 09/30/23 History Insulin Lispro [humaLOG Kwikpen] See Protocol SQ TID-W/MEALS 09/30/23 09/30/23 History cycloSPORINE 0.05% OPHTH SOLN 1 drop BOTH EYES DAILY 09/30/23 09/30/23 History [Restasis] Allergies Allergy/AdvReac Type Severity Reaction Status Date / Time codeine Allergy Nausea Verified 09/30/23 21:38 hydrocodone [From [place]] Allergy Rash/Hives Verified 09/30/23 21:38 Physical Exam Vitals: Vital Signs Temp Pulse Pulse Resp BP BP Pulse Ox 10/01/23 14:04 98.0 F 65 17 122/64 98 10/01/23 08:00 16 10/01/23 07:00 97.6 F 77 16 162/70 94 L 10/01/23 00:30 98.3 F 80 15 159/88 95 09/30/23 23:09 91 18 150/87 94 L 09/30/23 18:00 86 16 140/60 98 09/30/23 17:24 68 16 148/90 98 09/30/23 15:21 98.6 F 81 20 148/90 96 Intake and Output 09/30/23 10/01/23 10/01/23 22:59 06:59 14:59 Other: Voiding Method Toilet Toilet # Voids 1 Weight 92.986 kg 92.986 kg GENERAL: The patient is alert and oriented x3, not in any acute distress. Well developed, well nourished. HEENT: Pupils are round and equally reacting to light. EOMI. No scleral icterus. No conjunctival pallor. Normocephalic, atraumatic. No pharyngeal erythema. No thyromegaly. CARDIOVASCULAR: S1 and S2 present. No murmurs, rubs, or gallops. PULMONARY: Chest is clear to auscultation, no wheezing , no crackles. -ABDOMEN: Soft, mild periumbilical tenderness, no rebound tenderness or guarding, nondistended, normoactive bowel sounds. No palpable organomegaly. NG tube in place MUSCULOSKELETAL: No joint swelling or deformity. EXTREMITIES: No cyanosis, clubbing, or pedal edema. NEUROLOGICAL: Gross neurological examination did not reveal any focal deficits. SKIN: No rashes. no petechiae. Results CBC & Chem 7: 10/01/23 05:37 10/01/23 05:43 Labs: Abnormal Lab Results - Last 24 Hours (Table) 09/30/23 09/30/23 09/30/23 Range/Units 17:10 17:30 17:30 Hct 46.9 H (34.0-46.0) % Plt Count (150-450) k/uL Neutrophils # 8.1 H (1.3-7.7) k/uL Potassium 5.3 H (3.5-5.1) mmol/L Chloride 95 L (98-107) mmol/L Carbon Dioxide 33 H (22-30) mmol/L BUN 22 H (7-17) mg/dL Glucose 186 H (74-99) mg/dL POC Glucose (mg/dL) (70-110) mg/dL Hemoglobin A1c (<=6.0) % Urine Appearance Cloudy H (Clear) Urine Protein 1+ H (Negative) Ur Squamous Epith Cells 11 H (0-4) /hpf Hyaline Casts 29 H (0-2) /lpf Urine Mucus Few H (None) /hpf 10/01/23 10/01/23 10/01/23 Range/Units 05:37 05:37 05:43 Hct 46.1 H (34.0-46.0) % Plt Count 145 L (150-450) k/uL Neutrophils # (1.3-7.7) k/uL Potassium (3.5-5.1) mmol/L Chloride (98-107) mmol/L Carbon Dioxide (22-30) mmol/L BUN 19 H (7-17) mg/dL Glucose 150 H (74-99) mg/dL POC Glucose (mg/dL) (70-110) mg/dL Hemoglobin A1c 8.1 H (<=6.0) % Urine Appearance (Clear) Urine Protein (Negative) Ur Squamous Epith Cells (0-4) /hpf Hyaline Casts (0-2) /lpf Urine Mucus (None) /hpf 10/01/23 10/01/23 Range/Units 06:26 13:29 Hct (34.0-46.0) % Plt Count (150-450) k/uL Neutrophils # (1.3-7.7) k/uL Potassium (3.5-5.1) mmol/L Chloride (98-107) mmol/L Carbon Dioxide (22-30) mmol/L BUN (7-17) mg/dL Glucose (74-99) mg/dL POC Glucose (mg/dL) 143 H 138 H (70-110) mg/dL Hemoglobin A1c (<=6.0) % Urine Appearance (Clear) Urine Protein (Negative) Ur Squamous Epith Cells (0-4) /hpf Hyaline Casts (0-2) /lpf Urine Mucus (None) /hpf Assessment and Plan Assessment: High-grade small bowel obstruction with dilated 3-5 cm with circumferential wall thickening of the terminal ileum, suspicious for acute anterior colitis Extensive sigmoid diverticulosis without diverticulitis atrial fibrillation on blood thinner eliquis History of CVA/TIA Diabetes mellitus, with hyperglycemia and elevated hemoglobin A1c Hypertension Hyperlipidemia Hypothyroidism History of moderate aortic valve stenosis Diverticulosis. Hyperlipidemia Diabetes mellitus Plan: Continue with bowel rest IV fluid Pain medication Surgery primary team on the case Hold amary and metformin as patient is nothing by mouth for now and continue with insulin sliding scale Continue with Zosyn. Labs and medication were reviewed.. Continue same treatment. Continue with symptomatic treatment. Resume home medication. Monitor labs and vitals. DVT and GI prophylaxis. Further recommendations as per clinical course of the patient DVT prophylaxis: heparin GI Prophylaxis: Pepcid PT/OT: Pending Prognosis is guarded
[2023-10-01 17:04] LABS: Glucose,Whole Blood 101 mg/dL (70-110)
[2023-10-01] MEDS: IPRATROPIUM BROMIDE 0.06% NASAL SPRAY (15 ML) EA NOSTRIL SCH (17:13)
[2023-10-01] MEDS: SODIUM CHLORIDE 0.9% 1,000 ML IV SCH (17:26)
[2023-10-01] MEDS ORDERED: BENZOCAINE SPRAY 1 CAN MUCOUS MEM PRN (17:51)
[2023-10-01] MEDS: ATORVASTATIN 20 MG TAB PO SCH (19:58)
[2023-10-01 20:28] LABS: Glucose,Whole Blood 89 mg/dL (70-110)
--- NOTE | 2023-10-01 20:56 | P.CON ---
Consult Note - . Consult date: 10/01/23 Assessment/Plan:: This is a pleasant 78 years old female with past medical history of Atrial Fibrillation, CVA/TIA, Diabetes Mellitus, Hyperlipidemia, Hypertension, hypothyroidism, moderate stenosis of aortic valve.Diverticulosis, Pt has a pacemaker and also had a TAVR to the aortic valve, status post permanent pacemaker Patient presents because of abdominal pain of 2 days' duration associated with nausea vomiting. Patient states initially she had soft stool but then it was stopped for the last 3 days she doesn't have bowel movement. She denies chest pain or dyspnea. No urinary complaints. No headache dizziness weakness or numbness. Patient denies smoking or drinking alcohol. Patient hemodynamically stable, blood pressure 162/70. Labs reviewed, there were unremarkable CBC, BMP and liver enzymes. Elevated hemoglobin A1c 8.1%. 6 chest x-ray: No acute process Urine analysis is not suspicious of infection Viruses not detected, Influenza A and type B, RSV, SARS (coronavirus) are and detected CT of the abdomen and pelvis showing high-grade small bowel obstruction with dilatation about 3-5 cm with circumferential wall thickening of the terminal ileum. Extensive sigmoid diverticulosis without diverticulitis Patient currently is on Zosyn Social liquids this morning Review of Systems Review of systems CONSTITUTIONAL: No fever, no malaise, no fatigue. HEENT: No recent visual problems or hearing problems. Denied any sore throat. CARDIOVASCULAR: No orthopnea, PND, no palpitations, no syncope. PULMONARY: No shortness of breath, no cough, no hemoptysis. -GASTROINTESTINAL: as above NEUROLOGICAL: No headaches, no weakness, no numbness. HEMATOLOGICAL: Denies any bleeding or petechiae. GENITOURINARY: Denies any burning micturition, frequency, or urgency. MUSCULOSKELETAL/RHEUMATOLOGICAL: Denies any joint pain, swelling, or any muscle pain. ENDOCRINE: Denies any polyuria or polydipsia. Past Medical History Past Medical History: Atrial Fibrillation, CVA/TIA, Diabetes Mellitus, Hyperlipidemia, Hypertension, Thyroid Disorder Additional Past Medical History / Comment(s): moderate stenosis of aortic valve.Diverticulosis, Pt has a pacemaker and also had a TAVR to the aortic valve History of Any Multi-Drug Resistant Organisms: None Reported Past Surgical History: Hysterectomy, Joint Replacement, Orthopedic Surgery, Pacemaker Additional Past Surgical History / Comment(s): bilateral shoulder replacements, bilateral knees, caratedectomy. Past Anesthesia/Blood Transfusion Reactions: No Reported Reaction Type of Cardiac Device: Permanent Pacemaker Device Placement Date:: 02/2021 Past Psychological History: No Psychological Hx Reported Smoking Status: Former smoker Past Alcohol Use History: Occasional Past Drug Use History: None Reported Medications and Allergies Home Medications Medication Instructions Recorded Confirmed Type Levothyroxine Sodium [Synthroid] 150 mcg PO DAILY 11/25/20 09/30/23 History Losartan Potassium [Cozaar] 50 mg PO DAILY 11/25/20 09/30/23 History Zinc 50 mg PO MOWEFR 02/27/22 09/30/23 History metFORMIN HCL [Glucophage] 850 mg PO HS 02/27/22 09/30/23 History Amoxic-Pot Clav 875-125Mg 1 tab PO BID 1 Days #20 tab 09/19/23 09/30/23 Rx [Augmentin 875-125] Apixaban [Eliquis] 5 mg PO BID 09/19/23 09/30/23 History Cholecalciferol [Vitamin D3 (25 25 mcg PO DAILY 09/19/23 09/30/23 History Mcg = 1000 Iu)] Glimepiride [Amaryl] 4 mg PO HS 09/19/23 09/30/23 History Insulin Degludec [Tresiba 40 units SQ DAILY 09/19/23 09/30/23 History Flextouch U-100 Pen] Ipratropium [place] 0.06%Nasal 1 spr EA NOSTRIL DAILY 09/19/23 09/30/23 History [Atrovent Nasal 0.06%] Rosuvastatin [Crestor] 10 mg PO HS 09/19/23 09/30/23 History Insulin Lispro [humaLOG Kwikpen] See Protocol SQ TID-W/MEALS 09/30/23 09/30/23 History cycloSPORINE 0.05% OPHTH SOLN 1 drop BOTH EYES DAILY 09/30/23 09/30/23 History [Restasis] Allergies Allergy/AdvReac Type Severity Reaction Status Date / Time codeine Allergy Nausea Verified 09/30/23 21:38 hydrocodone [From [place]] Allergy Rash/Hives Verified 09/30/23 21:38 Physical Exam Vitals: Vital Signs Temp Pulse Pulse Resp BP BP Pulse Ox 10/01/23 14:04 98.0 F 65 17 122/64 98 10/01/23 08:00 16 11/18/23 07:00 97.6 F 77 16 162/70 94 L 10/01/23 00:30 98.3 F 80 15 159/88 95 09/30/23 23:09 91 18 150/87 94 L 09/30/23 18:00 86 16 140/60 98 09/30/23 17:24 68 16 148/90 98 09/30/23 15:21 98.6 F 81 20 148/90 96 Intake and Output 09/30/23 10/01/23 10/01/23 22:59 06:59 14:59 Other: Voiding Method Toilet Toilet # Voids 1 Weight 92.986 kg 92.986 kg GENERAL: The patient is alert and oriented x3, not in any acute distress. Well developed, well nourished. HEENT: Pupils are round and equally reacting to light. EOMI. No scleral icterus. No conjunctival pallor. Normocephalic, atraumatic. No pharyngeal erythema. No thyromegaly. CARDIOVASCULAR: S1 and S2 present. No murmurs, rubs, or gallops. PULMONARY: Chest is clear to auscultation, no wheezing , no crackles. -ABDOMEN: Soft, mild periumbilical tenderness, no rebound tenderness or guarding, nondistended, normoactive bowel sounds. No palpable organomegaly. NG tube in place MUSCULOSKELETAL: No joint swelling or deformity. EXTREMITIES: No cyanosis, clubbing, or pedal edema. NEUROLOGICAL: Gross neurological examination did not reveal any focal deficits. SKIN: No rashes. no petechiae. Results CBC & Chem 7: 10/01/23 05:37 10/01/23 05:43 Labs: Abnormal Lab Results - Last 24 Hours (Table) 09/30/23 09/30/23 09/30/23 Range/Units 17:10 17:30 17:30 Hct 46.9 H (34.0-46.0) % Plt Count (150-450) k/uL Neutrophils # 8.1 H (1.3-7.7) k/uL Potassium 5.3 H (3.5-5.1) mmol/L Chloride 95 L (98-107) mmol/L Carbon Dioxide 33 H (22-30) mmol/L BUN 22 H (7-17) mg/dL Glucose 186 H (74-99) mg/dL POC Glucose (mg/dL) (70-110) mg/dL Hemoglobin A1c (<=6.0) % Urine Appearance Cloudy H (Clear) Urine Protein 1+ H (Negative) Ur Squamous Epith Cells 11 H (0-4) /hpf Hyaline Casts 29 H (0-2) /lpf Urine Mucus Few H (None) /hpf 10/01/23 10/01/23 10/01/23 Range/Units 05:37 05:37 05:43 Hct 46.1 H (34.0-46.0) % Plt Count 145 L (150-450) k/uL Neutrophils # (1.3-7.7) k/uL Potassium (3.5-5.1) mmol/L Chloride (98-107) mmol/L Carbon Dioxide (22-30) mmol/L BUN 19 H (7-17) mg/dL Glucose 150 H (74-99) mg/dL POC Glucose (mg/dL) (70-110) mg/dL Hemoglobin A1c 8.1 H (<=6.0) % Urine Appearance (Clear) Urine Protein (Negative) Ur Squamous Epith Cells (0-4) /hpf Hyaline Casts (0-2) /lpf Urine Mucus (None) /hpf 10/01/23 10/01/23 Range/Units 06:26 13:29 Hct (34.0-46.0) % Plt Count (150-450) k/uL Neutrophils # (1.3-7.7) k/uL Potassium (3.5-5.1) mmol/L Chloride (98-107) mmol/L Carbon Dioxide (22-30) mmol/L BUN (7-17) mg/dL Glucose (74-99) mg/dL POC Glucose (mg/dL) 143 H 138 H (70-110) mg/dL Hemoglobin A1c (<=6.0) % Urine Appearance (Clear) Urine Protein (Negative) Ur Squamous Epith Cells (0-4) /hpf Hyaline Casts (0-2) /lpf Urine Mucus (None) /hpf Patient with multiple comorbidities presenting with small bowel obstruction Past surgical history significant for hysterectomy, hydration today NG tube put about 300 cc of thick bile output she is already feeling better her abdomen is nondistended and her pain subsided significantly since admission she is passing flatus. No bowel movement yet. The plan to keep NG tube decompression IV fluids Serial abdominal exam Reevaluate tomorrow no immediate surgical intervention at this point
[2023-10-01] MEDS ORDERED: metFORMIN 850 MG TAB PO SCH (21:00)
[2023-10-01] MEDS ORDERED: GLIMEPIRIDE 4 MG TAB PO SCH (21:00)
[2023-10-01 23:10] VITALS: RESP 16
[2023-10-02] MEDS: MORPHINE SULFATE 4 MG/ML SYRINGE IV PRN (00:04)
[2023-10-02] MEDS: PIPERACILLIN-TAZOBACTAM 3.375 GM in SODIUM CHLORIDE 0.9% 100 ML IVPB SCH ×3 (00:04→17:48)
[2023-10-02] MEDS: SODIUM CHLORIDE 0.9% 1,000 ML IV SCH ×2 (01:16→17:53)
[2023-10-02 05:23] LABS: Glucose,Whole Blood 98 mg/dL (70-110)
[2023-10-02] MEDS: LEVOTHYROXINE 75 MCG TAB PO SCH (05:25)
[2023-10-02] MEDS: ONDANSETRON 4 MG/2 ML VIAL IVP PRN (05:33)
[2023-10-02] MEDS: LOSARTAN 50 MG TAB PO SCH (05:51)
[2023-10-02] MEDS: INSULIN ASPART (NovoLOG) 100 UNIT/ML VIAL SQ SCH ×3 (05:54→17:49)
[2023-10-02] MEDS ORDERED: ACETAMINOPHEN SUPPOSITORY 650 MG SUPP RECTAL PRN (08:06)
[2023-10-02] MEDS ORDERED: hydrALAZINE HCL 25 MG TAB PO PRN (08:07)
[2023-10-02] MEDS ORDERED: FUROSEMIDE 10 MG/ML 2 ML VIAL IV ONE (08:07)
[2023-10-02] MEDS: APIXABAN 5 MG TAB PO SCH ×2 (08:18→20:56)
[2023-10-02] MEDS: IPRATROPIUM BROMIDE 0.06% NASAL SPRAY (15 ML) EA NOSTRIL SCH (08:24)
[2023-10-02] MEDS ORDERED: ACETAMINOPHEN TAB 325 MG TAB PO PRN (08:49)
--- NOTE | 2023-10-02 10:18 | P.PN ---
Progress Note - Text Progress Note Date: 10/02/23 Patient feels better. She's had some flatus. On exam vital signs appear stable. Abdomen is soft. Resolving small up structure. Patient will start clear liquids
[2023-10-02 12:08] LABS: Basophils % (A) 0 %; Eosinophils # (A) 0.3 k/uL (0-0.7); Eosinophils % (A) 3 %; HCT 44.3 % (34.0-46.0); HGB 14.2 gm/dL (11.4-16.0); Lymphocytes # (A) 1.2 k/uL (1.0-4.8); Lymphocytes % (A) 14 %; MCH 29.6 pg (25.0-35.0); MCV 92.5 fL (80.0-100.0); Monocytes # (A) 0.5 k/uL (0-1.0); Monocytes % (A) 5 %; Neutrophils # (A) 6.8 k/uL (1.3-7.7); Neutrophils % (A) 76 %; Platelet Count 150 k/uL (150-450); RDW 13.1 % (11.5-15.5); WBC 8.9 k/uL (3.8-10.6)
[2023-10-02 12:11] LABS: Glucose,Whole Blood 221 mg/dL (70-110)
[2023-10-02 17:05] LABS: Glucose,Whole Blood 179 mg/dL (70-110)
[2023-10-02] MEDS ORDERED: TEMAZEPAM 15 MG CAP PO PRN (18:12)
[2023-10-02 20:22] LABS: Glucose,Whole Blood 125 mg/dL (70-110)
[2023-10-02] MEDS: ATORVASTATIN 20 MG TAB PO SCH (20:57)
[2023-10-03] MEDS: PIPERACILLIN-TAZOBACTAM 3.375 GM in SODIUM CHLORIDE 0.9% 100 ML IVPB SCH ×2 (01:22→07:59)
[2023-10-03 06:24] LABS: Glucose,Whole Blood 132 mg/dL (70-110)
[2023-10-03] MEDS: INSULIN ASPART (NovoLOG) 100 UNIT/ML VIAL SQ SCH ×2 (06:35→13:46)
[2023-10-03] MEDS: LEVOTHYROXINE 75 MCG TAB PO SCH (06:36)
[2023-10-03] MEDS: LOSARTAN 50 MG TAB PO SCH (07:59)
[2023-10-03] MEDS: APIXABAN 5 MG TAB PO SCH (07:59)
--- NOTE | 2023-10-03 08:43 | P.PN ---
Subjective This is a pleasant 78 years old female with past medical history of Atrial Fibrillation, CVA/TIA, Diabetes Mellitus, Hyperlipidemia, Hypertension, h ypothyroidism, moderate stenosis of aortic valve.Diverticulosis, Pt has a pacemaker and also had a TAVR to the aortic valve, status post permanent pacemaker Patient presents because of abdominal pain of 2 days' duration associated with nausea vomiting. Patient states initially she had soft stool but then it was stopped for the last 3 days she doesn't have bowel movement. She denies chest pain or dyspnea. No urinary complaints. No headache dizziness weakness or numbness. Patient denies smoking or drinking alcohol. Patient hemodynamically stable, blood pressure 162/70. Labs reviewed, there were unremarkable CBC, BMP and liver enzymes. Elevated hemoglobin A1c 8.1%. 6 chest x-ray: No acute process Urine analysis is not suspicious of infection Viruses not detected, Influenza A and type B, RSV, SARS (coronavirus) are and detected CT of the abdomen and pelvis showing high-grade small bowel obstruction with dilatation about 3-5 cm with circumferential wall thickening of the terminal ileum. Extensive sigmoid diverticulosis without diverticulitis Patient currently is on Zosyn Social liquids this morning 10/02/2023 NG tube still in place in the morning Patient is passing flatus Abdominal pain is minimal tenderness Patient had a lot of questions I answered them to the best of my knowledge Plan of care discussed with surgery team and we are going to advance to liquid diet. Patient remains on Zosyn and IV fluids normal saline,. Blood pressure is better controlled Patient is on eliquis Active Medications Generic Name Dose Route Start Last Admin Trade Name Freq PRN Reason Stop Dose Admin Acetaminophen 650 mg 10/02/23 08:06 Acetaminophen Suppository 650 Mg Supp RECTAL Q6HR PRN Fever and/ or Pain Acetaminophen 650 mg 10/02/23 08:49 10/02/23 09:00 Acetaminophen Tab 325 Mg Tab PO 650 mg Q6HR PRN Administration Fever and/ or Pain Apixaban 5 mg 10/01/23 09:00 10/03/23 07:59 Apixaban 5 Mg Tab PO 5 mg BID ANGELINA Administration Protocol Atorvastatin Calcium 20 mg 10/01/23 21:00 10/02/23 20:57 Atorvastatin 20 Mg Tab PO 20 mg HS ANGELINA Administration Benzocaine 1 spray 10/01/23 17:51 10/01/23 19:58 Benzocaine [place] 1 Can MUCOUS MEM 1 spray TID PRN Administration Mouth Irritation Protocol Benzocaine/Menthol 1 each 10/01/23 12:35 10/01/23 17:25 Benzocaine/Menthol Lozeng 1 Each Lozenge MUCOUS MEM 1 each Q4HR PRN Administration sore throat Dextrose/Water 25 ml 09/30/23 22:13 Dextrose 50% Syringe 50 Ml IVP PER PROTOCOL PRN Hypoglycemia Protocol Dextrose/Water 50 ml 09/30/23 22:13 Dextrose 50% Syringe 50 Ml IVP PER PROTOCOL PRN Hypoglycemia Protocol Hydralazine HCl 25 mg 10/02/23 08:07 Hydralazine Hcl 25 Mg Tab PO QID PRN Blood Pressure - High Piperacillin Sod/Tazobactam 100 mls @ 25 mls/hr 10/01/23 09:00 10/03/23 07:59 Sod 3.375 gm/ Sodium Chloride IVPB 25 mls/hr Q8H ANGELINA Administration Protocol Sodium Chloride 1,000 mls @ 50 mls/hr 10/01/23 15:45 10/02/23 17:53 Saline 0.9% IV 50 mls/hr .Q20H ANGELINA Administration Insulin Aspart 0 unit 10/01/23 07:30 10/03/23 06:35 Insulin Aspart (Novolog) 100 Unit/Ml Vial SQ Not Given AC-TID ANGELINA Protocol Ipratropium [place] 1 spray 10/01/23 09:00 10/02/23 08:24 Ipratropium [place] 0.06% Nasal [place] (15 Ml) EA NOSTRIL Not Given DAILY ANGELINA Levothyroxine Sodium 150 mcg 10/01/23 06:30 10/03/23 06:36 Levothyroxine 75 Mcg Tab PO 150 mcg DAILY@0630 ANGELINA Administration Losartan Potassium 50 mg 10/01/23 09:00 10/03/23 07:59 Losartan 50 Mg Tab PO 50 mg DAILY ANGELINA Administration Morphine Sulfate 4 mg 09/30/23 21:35 10/02/23 00:04 Morphine Sulfate 4 Mg/Ml Syringe IV 4 mg Q4HR PRN Administration Severe Pain (Scale 7 to 10) Naloxone HCl 0.2 mg 09/30/23 21:35 Naloxone 0.4 Mg/Ml 1 Ml Vial IV Q2M PRN Opioid Reversal Ondansetron HCl 4 mg 09/30/23 21:35 10/02/23 05:33 Ondansetron 4 Mg/2 Ml Vial IVP 4 mg Q8HR PRN Administration Nausea And Vomiting Temazepam 15 mg 10/02/23 18:12 10/02/23 23:08 Temazepam 15 Mg Cap PO 15 mg HS PRN Administration Insomnia Objective - Vital Signs Vital signs: Vital Signs Temp 97.9 F 10/02/23 07:40 Pulse 86 10/02/23 10:09 Resp 16 10/02/23 07:40 BP 135/70 10/02/23 10:09 Pulse Ox 93 L 10/02/23 07:40 FiO2 Intake & Output 10/01/23 10/02/23 10/02/23 18:59 06:59 18:59 Output Total 150 20 Balance -150 -20 Output: Gastric Drainage 150 20 Other: Voiding Method Toilet Toilet # Voids 1 2 - Exam -GENERAL: The patient is alert and oriented x3, not in any acute distress. Obesity. HEENT: Pupils are round and equally reacting to light. EOMI. No scleral icterus. No conjunctival pallor. Normocephalic, atraumatic. No pharyngeal erythema. No thyromegaly. CARDIOVASCULAR: S1 and S2 present. No murmurs, rubs, or gallops. PULMONARY: Chest is clear to auscultation, no wheezing , no crackles. -ABDOMEN: Soft, mild tenderness, nondistended, normoactive bowel sounds. No palpable organomegaly. NG tube in place MUSCULOSKELETAL: No joint swelling or deformity. EXTREMITIES: No cyanosis, clubbing, or pedal edema. NEUROLOGICAL: Gross neurological examination did not reveal any focal deficits. SKIN: No rashes. no petechiae. - Labs CBC & Chem 7: 10/02/23 11:46 10/01/23 05:43 Labs: Abnormal Lab Results - Last 24 Hours (Table) 10/01/23 Range/Units 13:29 POC Glucose (mg/dL) 138 H (70-110) mg/dL Assessment and Plan Assessment: High-grade small bowel obstruction with dilated 3-5 cm with circumferential wall thickening of the terminal ileum, suspicious for acute anterior colitis Extensive sigmoid diverticulosis without diverticulitis atrial fibrillation on blood thinner eliquis History of CVA/TIA Diabetes mellitus, with hyperglycemia and elevated hemoglobin A1c Hypertension Hyperlipidemia Hypothyroidism History of moderate aortic valve stenosis Diverticulosis. Hyperlipidemia Diabetes mellitus Plan: Continue with bowel rest IV fluid Pain medication Surgery primary team on the case Hold amary and metformin as patient is nothing by mouth for now and continue with insulin sliding scale Continue with Zosyn. Advance diet per surgery team Labs and medication were reviewed.. Continue same treatment. Continue with symptomatic treatment. Resume home medication. Monitor labs and vitals. DVT and GI prophylaxis. Further recommendations as per clinical course of the patient DVT prophylaxis: elqius GI Prophylaxis: Pepcid PT/OT: Pending Prognosis is guarded
[2023-10-03] MEDS: IPRATROPIUM BROMIDE 0.06% NASAL SPRAY (15 ML) EA NOSTRIL SCH (11:20)
[2023-10-03 12:28] LABS: Glucose,Whole Blood 201 mg/dL (70-110)
--- NOTE | 2023-10-03 13:32 | P.PN ---
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 Patient states initially she had soft stool but then it was stopped for the last 3 days she doesn't have bowel movement. She denies chest pain or dyspnea. No urinary complaints. No headache dizziness weakness or numbness. Patient denies smoking or drinking alcohol. Patient hemodynamically stable, blood pressure 162/70. Labs reviewed, there were unremarkable CBC, BMP and liver enzymes. Elevated hemoglobin A1c 8.1%. 6 chest x-ray: No acute process Urine analysis is not suspicious of infection Viruses not detected, Influenza A and type B, RSV, SARS (coronavirus) are and detected CT of the abdomen and pelvis showing high-grade small bowel obstruction with dilatation about 3-5 cm with circumferential wall thickening of the terminal ileum. Extensive sigmoid diverticulosis without diverticulitis Patient currently is on Zosyn Social liquids this morning 10/02/2023 NG tube still in place in the morning Patient is passing flatus Abdominal pain is minimal tenderness Patient had a lot of questions I answered them to the best of my knowledge Plan of care discussed with surgery team and we are going to advance to liquid diet. Patient remains on Zosyn and IV fluids normal saline,. 10/03. Patient seen and examined. Denies any abdominal pain. Patient is passing gas. Has not had a bowel movement yet. Currently on clear liquid diet REVIEW OF SYSTEMS: CONSTITUTIONAL: No fever, no malaise,. CARDIOVASCULAR: No chest pain, no palpitations, no syncope. PULMONARY: No shortness of breath, no cough, GASTROINTESTINAL: No diarrhea, no nausea, no vomiting, no abdominal pain. NEUROLOGICAL: No headaches, no weakness, PHYSICAL EXAMINATION: GENERAL: The patient is alert and oriented x3, not in any acute distress. Well developed, well nourished. HEENT: Pupils are round and equally reacting to light. EOMI. No scleral icterus. No conjunctival pallor. Normocephalic, atraumatic. No pharyngeal erythema. No thyromegaly. CARDIOVASCULAR: S1 and S2 present. No murmurs, rubs, or gallops. PULMONARY: Chest is clear to auscultation, no wheezing or crackles. ABDOMEN: Soft, nontender, nondistended, normoactive bowel sounds. No palpable organomegaly. MUSCULOSKELETAL: No joint swelling or deformity. EXTREMITIES: No cyanosis, clubbing, or pedal edema. NEUROLOGICAL: Gross neurological examination did not reveal any focal deficits. SKIN: No rashes. Assessment and plan High-grade small bowel obstruction with dilated 3-5 cm with circumferential wall thickening of the terminal ileum, suspicious for acute anterior colitis Extensive sigmoid diverticulosis without diverticulitis atrial fibrillation on eliquis History of CVA/TIA Diabetes mellitus, with hyperglycemia and elevated hemoglobin A1c Hypertension Hyperlipidemia Hypothyroidism History of moderate aortic valve stenosis Diverticulosis. Hyperlipidemia Diabetes mellitus Monitor vital signs Monitor CBC Monitor CMP Serial abdominal exams Continue IV fluids Currently on clear liquid diet, advance diet per surgery Continue IV Zosyn In regards to hypertension, continue losartan Regards to hyperlipidemia , continue Lipitor In regards to hypothyroid continue Synthyroid In regards to diabetes mellitus, monitor blood sugar levels, continue sliding scale insulin Gen. surgery following Labs and medication were reviewed.. Continue same treatment. Continue with symptomatic treatment. Resume home medication. Monitor labs and vitals. DVT and GI prophylaxis. Further recommendations as per clinical course of the patient Dictation was produced using [employer] dictation software. please excuse any grammatical, word or spelling errors. Objective - Vital Signs Vital signs: Vital Signs Temp 98 F 10/03/23 07:43 Pulse 77 10/03/23 07:43 Resp 16 10/03/23 07:43 BP 164/73 10/03/23 07:43 Pulse Ox 94 L 10/03/23 07:43 FiO2 Intake & Output 10/02/23 10/03/23 10/03/23 18:59 06:59 18:59 Intake Total 250 200 Output Total 50 Balance -50 250 200 Intake: Oral 250 200 Output: Gastric Drainage 50 Other: Voiding Method Toilet # Voids 4 1 - Labs CBC & Chem 7: 10/02/23 11:46 10/01/23 05:43 Labs: Abnormal Lab Results - Last 24 Hours (Table) 10/02/23 10/02/23 10/02/23 Range/Units 12:10 17:04 20:21 POC Glucose (mg/dL) 221 H 179 H 125 H (70-110) mg/dL 10/03/23 Range/Units 06:23 POC Glucose (mg/dL) 132 H (70-110) mg/dL Microbiology - Last 24 Hours (Table) 09/30/23 01:00 Blood Culture - Preliminary Blood
[2023-10-03] MEDS: SODIUM CHLORIDE 0.9% 1,000 ML IV SCH (13:46)
--- NOTE | 2023-10-03 14:11 | P.DS ---
Providers Date of admission: 09/30/23 21:35 Expected date of discharge: 10/03/23 Attending physician: Girish Singleton Consults: 09/30/23 21:35 Consult Physician Routine Consulting Provider: Geremias Caballero Consult Reason/Comments: medical management Do you want consulting provider notified?: Yes Primary care physician: Sumanth Darby Hospital Course: Discharge diagnosis 1. Small bowel obstruction managed conservatively 2. History of hysterectomy Hospital course This is a 78-year-old female who presented with abdominal pain with nausea and vomiting. Patient had recently undergone treatment for diverticulitis. Computed tomography scan abdomen and pelvis had reported a high-grade small bowel obstruction. Small bowel loops are dilated up to 3.5 cm. Transition poin t at the right lower quadrant ileum where there is a long segment moderate circumferential wall thickening and mucosal hyperemia distally to the level of the terminal ileum. Small bowel obstruction secondary to infectious or inflammatory ileitis is suggested. Generalize colonic diverticulosis. No evidence of acute diverticulitis. Patient did have NG tube placed for decompression. She was managed conservatively. She started having flatus. NG tube removed. She started on clear liquids. She had bowel movement. Abdominal pain resolved. She has been up and ambulating. She is tolerating diet. Afebrile. She is stable for discharge. Please refer to chart for any further details. Physician Credit Verification Clerk note has been reviewed by physician. Signing provider agrees with the documented findings, assessment, and plan of care. Patient Condition at Discharge: Stable Plan - Discharge Summary New Discharge Prescriptions: Continue Losartan Potassium [Cozaar] 50 mg PO DAILY Levothyroxine Sodium [Synthroid] 150 mcg PO DAILY Glimepiride [Amaryl] 4 mg PO HS Amoxic-Pot Clav 875-125Mg [Augmentin 875-125] 1 tab PO BID 1 Days #20 tab metFORMIN HCL [Glucophage] 850 mg PO HS Zinc 50 mg PO MOWEFR Insulin Degludec [Tresiba Flextouch U-100 Pen] 40 units SQ DAILY Cholecalciferol [Vitamin D3 (25 Mcg = 1000 Iu)] 25 mcg PO DAILY Ipratropium Marion 0.06%Nasal [Atrovent Nasal 0.06%] 1 spr EA NOSTRIL DAILY Rosuvastatin [Crestor] 10 mg PO HS Apixaban [Eliquis] 5 mg PO BID cycloSPORINE 0.05% OPHTH SOLN [Restasis] 1 drop BOTH EYES DAILY Insulin Lispro [humaLOG Kwikpen] See Protocol SQ TID-W/MEALS Discharge Medication List Levothyroxine Sodium [Synthroid] 150 mcg PO DAILY 11/25/20 [History] Losartan Potassium [Cozaar] 50 mg PO DAILY 11/25/20 [History] Zinc 50 mg PO MOWEFR 02/27/22 [History] metFORMIN HCL [Glucophage] 850 mg PO HS 02/27/22 [History] Amoxic-Pot Clav 875-125Mg [Augmentin 875-125] 1 tab PO BID 1 Days #20 tab 09/19/23 [Rx] Apixaban [Eliquis] 5 mg PO BID 09/19/23 [History] Cholecalciferol [Vitamin D3 (25 Mcg = 1000 Iu)] 25 mcg PO DAILY 09/19/23 [Hist ory] Glimepiride [Amaryl] 4 mg PO HS 09/19/23 [History] Insulin Degludec [Tresiba Flextouch U-100 Pen] 40 units SQ DAILY 09/19/23 [History] Ipratropium Marion 0.06%Nasal [Atrovent Nasal 0.06%] 1 spr EA NOSTRIL DAILY 09/19/23 [History] Rosuvastatin [Crestor] 10 mg PO HS 09/19/23 [History] Insulin Lispro [humaLOG Kwikpen] See Protocol SQ TID-W/MEALS 09/30/23 [History] cycloSPORINE 0.05% OPHTH SOLN [Restasis] 1 drop BOTH EYES DAILY 09/30/23 [History] Follow up Appointment(s)/Referral(s): Sumanth Darby DO [Primary Care Provider] - 1-2 days Girish Singleton MD [STAFF PHYSICIAN] - 1 Week Discharge Disposition: HOME SELF-CARE
[2023-10-03 14:53] VITALS: BP 160/84; PULSE 79; TEMP 98.1
== END 2023-10-03 15:19 | disposition home or self-care (01) | DRG 388 ==
LOC: EC 15:17 → 4SSUR 21:35 → 6NMEDSUR 22:38
PROVIDERS: ADMIT Surgery; ATTEND Surgery
PROC: 0D9670Z Drainage of Stomach with Drainage Device, Via Natural or Artificial Opening (ICD-10-PCS; principal; 2023-09-30)
DX: K56.609 Unspecified intestinal obstruction, unspecified as to partial versus complete obstruction (principal); K57.31 Diverticulosis of large intestine without perforation or abscess with bleeding; K52.9 Noninfective gastroenteritis and colitis, unspecified; E03.9 Hypothyroidism, unspecified; E11.649 Type 2 diabetes mellitus with hypoglycemia without coma; E78.5 Hyperlipidemia, unspecified; G47.00 Insomnia, unspecified; I10 Essential (primary) hypertension; I08.0 Rheumatic disorders of both mitral and aortic valves; Z95.4 Presence of other heart-valve replacement; Z11.52 Encounter for screening for COVID-19; Z95.0 Presence of cardiac pacemaker; I48.91 Unspecified atrial fibrillation; Z79.01 Long term (current) use of anticoagulants; Z79.4 Long term (current) use of insulin; Z79.84 Long term (current) use of oral hypoglycemic drugs; Z79.890 Hormone replacement therapy; Z79.899 Other long term (current) drug therapy; Z86.73 Personal history of transient ischemic attack (TIA), and cerebral infarction without residual deficits; Z87.891 Personal history of nicotine dependence; Z96.611 Presence of right artificial shoulder joint; Z96.612 Presence of left artificial shoulder joint; Z96.653 Presence of artificial knee joint, bilateral; Z79.2 Long term (current) use of antibiotics; Z88.5 Allergy status to narcotic agent
CPT/HCPCS: 36415; 71045; 74177; 76705; 80048; 80053; 81001; 82150; 83036; 83605; 83690; 85025; 87040; 87636; 93005; 96361; 96372; 96374; 96375; 99285

== ENCOUNTER → 2023-10-25 | Outpatient (CLI) | payer MEDICARE ==
[2023-10-25 13:42] LABS: African American GFR (CKD) >90 (>60 ml/min/1.73 sqM); Blood Urea Nitrogen 16 mg/dL (7-17); Non-African American GFR(CKD) >90 (>60 ml/min/1.73 sqM)
--- NOTE | 2023-10-25 16:15 | CT ---
EXAMINATION TYPE: CT abdomen pelvis w con CT DLP: 1160 mGycm, Automated exposure control for dose reduction was used. DATE OF EXAM: 10/25/2023 3:14 PM COMPARISON: 09/30/2023. CLINICAL INDICATION:Female, 78 years old with history of K56.600 partial bowel obstruction; f/u SBO TECHNIQUE: Axial CT of the ;CT abdomen pelvis w con;Sagittal and coronal reformats were created on a separate workstation. Contrast used:100 mL of Isovue 300 with IV Contrast, (none if empty) Oral contrast used: with Oral Contrast (none if empty) FINDINGS: LOWER CHEST: Right posterior fat-containing Bochdalek hernia. Cardiac conduction leads partially visu alized. ABDOMEN LIVER: Unremarkable GALLBLADDER AND BILE DUCTS: Unremarkable. PANCREAS: Unremarkable. SPLEEN: Unremarkable. ADRENAL GLANDS: Unremarkable. KIDNEYS AND URETERS: No evidence of hydronephrosis or renal calculus. The ureters are unremarkable. PELVIS BLADDER: Unremarkable REPRODUCTIVE: Unremarkable. ABDOMEN & PELVIS STOMACH AND BOWEL: No evidence of bowel obstruction. No evidence for bowel wall thickening. Resolutio n of prior obstructing bowel pattern Scattered colonic diverticula are present. The appendix is brody l. PERITONEUM/RETROPERITONEUM: No evidence of pneumoperitoneum or free fluid. VASCULATURE: Mild atherosclerotic calcifications are present throughout the abdominal aorta and its b ranches. No evidence of aortic aneurysm. MUSCULOSKELETAL: No acute osseous abnormalities. Mild disc degeneration changes are present throughou t the thoracolumbar spine. LYMPH NODES: No gross evidence for lymphadenopathy. SOFT TISSUE/ABDOMINAL WALL: Unremarkable IMPRESSION: 1. Resolution of prior obstructive small bowel gas pattern likely secondary to colitis. Resolution o f prior colitis. No evidence for acute process. 2. Colonic diverticulosis.
== END | disposition home or self-care (01) ==
LOC: RADCTMAIN 12:45
PROVIDERS: ATTEND Surgery
DX: K57.30 Diverticulosis of large intestine without perforation or abscess without bleeding (principal); K56.600 Partial intestinal obstruction, unspecified as to cause
CPT/HCPCS: 82565; 84520; 74177; 36415; Q9967

== ENCOUNTER → 2024-08-08 | Outpatient (CLI) | payer MEDICARE ==
--- NOTE | 2024-08-09 08:46 | MM ---
Reason for Exam: Screening (asymptomatic). Last screening mammogram was performed 12 month(s) ago. Patient History: Menarche at age 11. Patient has no children. Left ovary removed at age 75. Right ovary removed at age 75. Hysterectomy at age 75. Postmenopausal. Other cancer. Benign Excisional Biopsy on the left side. Mother had breast cancer, age 75. Risk Values: Lucy 5 year model risk: 4.4%. NCI Lifetime model risk: 7.7%. Prior Study Comparison: 07/22/2021 Bilateral Screening Mammogram, [facility]. 07/26/2022 Bilateral MG 3D screening mammo w/cad, [facility]. 07/28/2023 Bilateral MG 3D screening mammo w/cad, [facility]. Tissue Density: The breasts are heterogeneously dense, which may obscure small masses. Findings: Analyzed By CAD. Benign-appearing calcifications. No suspicious calcifications. Portion of the left breast and axilla obscured by metallic cardiac device. Asymmetric density in the central upper margin left breast. Spot compression view recommended. Overall Assessment: Incomplete: need additional imaging evaluation, BI-RAD 0 Management: Diagnostic Mammogram of the left breast. . Patient should continue monthly self-breast exams. A clinical breast exam by your physician is recommended on an annual basis. This exam should not preclude additional follow-up of suspicious palpable abnormalities. Note on Lucy scores and lifetime risk: 1. A Lucy score greater than 3% is considered moderate risk. If this is the case, consider specialist referral to assess eligibility for a risk reducing agent. 2. If overall lifetime risk for the development of breast cancer is 20% or higher, the patient may qualify for future screening with alternating mammogram and breast MRI. [facility], , 08/09/2024 8:43 AM. Electronically signed and approved by: Pascual Nolasco M.D. Radiologis
== END | disposition home or self-care (01) ==
LOC: RADMAMWWP 12:35
PROVIDERS: ATTEND Internal Medicine
DX: R92.30 Dense breasts, unspecified
CPT/HCPCS: 77063; 77067

== ENCOUNTER → 2024-08-17 | Outpatient (CLI) | payer MEDICARE ==
--- NOTE | 2024-08-17 11:40 | MM ---
Reason for Exam: Additional evaluation requested from abnormal screening. Last screening mammogram was performed less than 1 month ago. Patient History: Menarche at age 11. Patient has no children. Left ovary removed at age 75. Right ovary removed at age 75. Hysterectomy at age 75. Postmenopausal. Other cancer. Benign Excisional Biopsy on the left side. Mother had breast cancer, age 75. Risk Values: Lucy 5 year model risk: 4.4%. NCI Lifetime model risk: 7.7%. Prior Study Comparison: 05/11/2017 Bilateral Screening Mammogram, [facility]. 05/31/2018 Bilateral Screening Mammogram, [facility]. 06/18/2019 Bilateral Screening Mammogram, [facility]. 07/04/2020 Bilateral Screening Mammogram, [facility]. 07/22/2021 Bilateral Screening Mammogram, [facility]. 07/26/2022 Bilateral MG 3D screening mammo w/cad, [facility]. 07/28/2023 Bilateral MG 3D screening mammo w/cad, [facility]. 08/08/2024 Bilateral MG 3D screening mammo w/cad, [facility]. Tissue Density: Left: The breasts are heterogeneously dense, which may obscure small masses. Findings: Analyzed By CAD. Nodular density upper central left breast is unchanged dating back to 2020 and is located at the previous biopsy site and is felt to reflect postbiopsy changes. No new masses are detected. No evidence for distortion or suspicious calcification. Overall Assessment: Benign, BI-RAD 2 Management: Diagnostic Mammogram of both breasts in 1 year. . Results were given to the patient verbally at the time of exam. Patient should continue monthly self-breast exams. A clinical breast exam by your physician is recommended on an annual basis. This exam should not preclude additional follow-up of suspicious palpable abnormalities. Note on Lucy scores and lifetime risk: 1. A Lucy score greater than 3% is considered moderate risk. If this is the case, consider specialist referral to assess eligibility for a risk reducing agent. 2. If overall lifetime risk for the development of breast cancer is 20% or higher, the patient may qualify for future screening with alternating mammogram and breast MRI. [facility], , 08/17/2024 11:37 AM. Electronically signed and approved by: Pantera Anderson M.D. Radiologis
== END | disposition home or self-care (01) ==
LOC: RADMAMWWP 10:34
PROVIDERS: ATTEND Internal Medicine
DX: R92.8 Other abnormal and inconclusive findings on diagnostic imaging of breast
CPT/HCPCS: 77061; 77065